=== PATIENT | male | born 1945 | race Caucasian/White ===

== ENCOUNTER → 2020-12-20 | Outpatient (CLI) | payer MEDICARE ==
--- NOTE | 2020-12-20 16:08 | MR ---
EXAMINATION TYPE: MR brain wo con DATE OF EXAM: 12/20/2020 COMPARISON: None HISTORY: CVA, pt states he has no symptoms. CONTRAST: Performed utilizing 0 mL intravenous Gadavist gadolinium contrast. TECHNIQUE: Multiplanar, multiecho imaging on a 3.0 Katerin magnet is performed through the brain. Stud y is performed within 24 hours of arrival to the hospital. The craniovertebral junction is normal. The pituitary is normal. Diffusion-weighted imaging is performed. No abnormal hyperintensity is present to suggest an acute i ntracranial infarct or acute ischemic change. Periventricular white matter hyperintensity is present. Largest focal area measures 0.9 cm within the left centrum semiovale. Findings are nonspecific but can be compatible with microvascular ischemic c hange. Other etiologies including multiple sclerosis could be considered. Ventricles and sulci are slightly prominent for the patient age. IMPRESSIONS: 1. Mild atrophy with chronic appearing periventricular white matter ischemic changes.
== END | disposition home or self-care (01) ==
LOC: RADMRIMAIN 14:38
PROVIDERS: ATTEND Psychiatry & Neurology Neurology
DX: G31.9 Degenerative disease of nervous system, unspecified (principal); I67.82 Cerebral ischemia
CPT/HCPCS: 70551

== ENCOUNTER 2022-11-13 16:23 | Observation (INO) | payer MEDICARE ==
[2022-11-13 16:50] LABS: Glucose,Whole Blood 97 mg/dL (70-110)
[2022-11-13] MEDS ORDERED: SODIUM CHLORIDE 0.9% 1,000 ML IV STA (16:50)
--- NOTE | 2022-11-13 16:50 | ED ---
Altered Mental Status HPI - General Chief Complaint: Altered Mental Status Stated Complaint: unsteady gate Time Seen by Provider: 11/13/22 16:41 Source: patient, family Mode of arrival: ambulatory - History of Present Illness Initial Comments: Geraldo is a pleasant 77-year-old gentleman brought to the emergency department today for evaluation after episode of altered mental status. Patient apparently went on his usual daily walk but while out walking became confused and unsteady on his feet and had to be escorted home by a neighbor. Patient seems somewhat confused and unsteady on his feet. at bedside reports this is the third time this has happened in a month the first being October 28 the second being October 31 and then again today. All of the episodes and seemed to resolve after some rest. Patient has followed with his primary care Dr. Ruiz blood work did reveal worsening kidney function there is concerned these episodes might be related to dehydration as the patient does not drink much during the day and only eats one large meal at suppertime. Patient has not been ill recently he's been in his usual state of health no fevers, chills. Been eating his usual diet. the patient also has a very long history of atrial fibrillation and is not anticoagulated, is uncertain why he is not on any anticoagulation but reports that he never has been. - Related Data Home Medications Medication Instructions Recorded Confirmed Atorvastatin [Lipitor] 10 mg PO HS 11/13/22 11/13/22 Cholecalciferol [Vitamin D3 (25 25 mcg PO Q48H 11/13/22 11/13/22 Mcg = 1000 Iu)] Prostate Plus Health Complex 1 tab PO DAILY 11/13/22 11/13/22 Supplement carvediloL [Coreg] 3.125 mg PO BID 11/13/22 11/13/22 Allergies Allergy/AdvReac Type Severity Reaction Status Date / Time No Known Allergies Allergy Verified 11/13/22 19:37 Review of Systems ROS Statement: Those systems with pertinent positive or pertinent negative responses have been documented in the HPI. ROS Other: All systems not noted in ROS Statement are negative. Past Medical History Past Medical History: No Reported History History of Any Multi-Drug Resistant Organisms: None Reported Past Surgical History: No Surgical Hx Reported Past Psychological History: No Psychological Hx Reported Smoking Status: Never smoker Past Alcohol Use History: None Reported Past Drug Use History: None Reported General Exam - General Exam Comments Initial Comments: Physical Exam GENERAL: Patient is well-developed and well-nourished. Patient is nontoxic and is in no distress. HENT: Normocephalic, Atraumatic. EYES: PERRL, EOMI PULMONARY: Unlabored respirations. CARDIOVASCULAR: Irregular ABDOMEN: Non-distended SKIN: No rashes or bruising : Deferred NEUROLOGIC: Alert and oriented to person and place MUSCULOSKELETAL: Moving all extremities with no apparent injury PSYCHIATRIC: No SI/HI Course Vital Signs 11/13/22 11/13/22 11/13/22 16:28 16:45 17:00 Temperature 98.1 F Pulse Rate 106 H 98 92 Respiratory 18 16 18 Rate Blood Pressure 108/69 113/88 115/93 O2 Sat by Pulse 98 98 98 Oximetry 11/13/22 11/13/22 11/13/22 17:15 17:30 17:45 Temperature 97.7 F 97.6 F Pulse Rate 89 83 93 Respiratory 16 16 17 Rate Blood Pressure 113/86 121/90 114/91 O2 Sat by Pulse 98 98 98 Oximetry 11/13/22 11/13/22 11/13/22 18:30 18:55 19:30 Temperature 97.8 F Pulse Rate 86 84 82 Respiratory 18 17 16 Rate Blood Pressure 145/113 144/106 113/79 O2 Sat by Pulse 99 100 96 Oximetry 11/13/22 11/13/22 11/13/22 20:17 20:30 20:58 Temperature 97.5 F L Pulse Rate 96 91 82 Respiratory 16 16 16 Rate Blood Pressure 151/98 113/83 113/79 O2 Sat by Pulse 98 97 96 Oximetry 11/13/22 21:30 Temperature Pulse Rate 89 Respiratory 16 Rate Blood Pressure 116/75 O2 Sat by Pulse 98 Oximetry Medical Decision Making - Medical Decision Making The patient was seen and evaluated, history is obtained from the patient and at bedside. Patient had an episode of being confused and having trouble walking while he was on a walk in the heat today uncertain if this is related to dehydration/heat exposure versus TIA or stroke. A stroke workup was initiated. Labs resulted with hyperkalemia which was treated. Patient did receive IV fluids for acute kidney injury. CT of the brain showed enlarged ventricles which could be indicative of normal pressure hydrocephalus but no other acute findings. Results were discussed with patient and at bedside we recommend admission for further monitoring and evaluation by neurology which the patient was reluctantly agreeable to and encouraged. Vision care was discussed with [facility] hospitalist physician Dr. Mar Villasenor who accepts the admission for altered mental status, dehydration, hyperkalemia Was pt. sent in by a medical professional or institution (, PA, FABRICATION DEPARTMENT SUPERVISOR, urgent care, hospital, or prison...) When possible be specific @ -No Did you speak to anyone other than the patient for history (EMS, parent, family, police, friend...)? What history was obtained from this source @ -No Did you review nursing and triage notes (agree or disagree)? Why? @ -I reviewed and agree with nursing and triage notes Were old charts reviewed (outside hosp., previous admission, EMS record, old EKG, old radiological studies, urgent care reports/EKG's, prison records)? Report findings @ -No old charts were reviewed Differential Diagnosis (chest pain, altered mental status, abdominal pain women, abdominal pain men, vaginal bleeding, weakness, fever, dyspnea, syncope, headache, dizziness, GI bleed, back pain, seizure, CVA, palpatations, mental health, musculoskeletal)? Differential Altered Mental Status: Hypoglycemia, DKA, hypercapnia, ETOH, overdose, CO poisoning, trauma, myxedema coma, HTN encephalopathy, infection, encephalitis, psychosis, intercranial hemorrhage, hepatic encephalopathy, meningitis, CVA, this is not meant to be an all-inclusive list EKG interpreted by me (3pts min.). @ -As above X-rays interpreted by me (1pt min.). @ -None done CT interpreted by me (1pt min.). @ No mass, enlarged ventricles U/S interpreted by me (1pt. min.). @ -None done What testing was considered but not performed or refused? (CT, X-rays, U/S, labs)? Why? @ MRI can be completed upon admission What meds were considered but not given or refused? Why? @ -None Did you discuss the management of the patient with other professionals (professionals i.e. , PA, FABRICATION DEPARTMENT SUPERVISOR, lab, RT, psych nurse, social director, lens blank gauger, teacher, chief science officer, correctional case manager)? Give summary @ Discussed with the admitting physician Was smoking cessation discussed for >3mins.? @ -No Was critical care preformed (if so, how long)? @ -No Were there social determinants of health that impacted care today? How? (Homelessness, low income, unemployed, alcoholism, drug addiction, transportation, low edu. Level, literacy, decrease access to med. care, mcc, rehab)? @ -No Was there de-escalation of care discussed even if they declined (Discuss DNR or withdrawal of care, Hospice)? DNR status @ -No What co-morbidities impacted this encounter? (DM, HTN, Smoking, COPD, CAD, Cancer, CVA, ARF, Chemo, Hep., AIDS, mental health diagnosis, sleep apnea, morbid obesity)? @ -None Was patient admitted / discharged? Hospital course, mention meds given and route, prescriptions, significant lab abnormalities, going to OR and other pertinent info. @ Admit Undiagnosed new problem with uncertain prognosis? @ Yes Drug Therapy requiring intensive monitoring for toxicity (Heparin, Nitro, Insulin, Cardizem)? @ -No Were any procedures done? @ -No Diagnosis/symptom? @ Altered mental status, acute kidney injury, hyperkalemia Acute, or Chronic, or Acute on Chronic? @ Acute Uncomplicated (without systemic symptoms) or Complicated (systemic symptoms)? @ -Complicated Side effects of treatment? @ -No Exacerbation, Progression, or Severe Exacerbation? @ -No Poses a threat to life or bodily function? How? (Chest pain, [place], [place], pneumonia, PE, COPD, DKA, ARF, appy, cholecystitis, CVA, Diverticulitis, Homicidal, Suicidal, threat to staff... and all critical care pts) @ Yes - Lab Data Result diagrams: 11/13/22 16:54 11/13/22 21:37 Lab Results 11/13/22 11/13/22 11/13/22 Range/Units 16:49 16:54 16:54 WBC 8.3 (3.8-10.6) k/uL RBC 4.43 (4.30-5.90) m/uL Hgb 15.0 (13.0-17.5) gm/dL Hct 43.7 (39.0-53.0) % MCV 98.6 (80.0-100.0) fL MCH 33.8 (25.0-35.0) pg MCHC 34.2 (31.0-37.0) g/dL RDW 12.2 (11.5-15.5) % Plt Count 141 L (150-450) k/uL MPV 8.9 Neutrophils % 77 % Lymphocytes % 12 % Monocytes % 7 % Eosinophils % 2 % Basophils % 1 % Neutrophils # 6.4 (1.3-7.7) k/uL Lymphocytes # 1.0 (1.0-4.8) k/uL Monocytes # 0.6 (0-1.0) k/uL Eosinophils # 0.2 (0-0.7) k/uL Basophils # 0.1 (0-0.2) k/uL PT 10.2 (9.0-12.0) sec INR 1.0 (<1.2) APTT 20.4 L (22.0-30.0) sec Sodium (137-145) mmol/L Potassium (3.5-5.1) mmol/L Chloride (98-107) mmol/L Carbon Dioxide (22-30) mmol/L Anion Gap mmol/L BUN (9-20) mg/dL Creatinine (0.66-1.25) mg/dL Est GFR (CKD-EPI)AfAm (>60 ml/min/1.73 sqM) Est GFR (CKD-EPI)NonAf (>60 ml/min/1.73 sqM) Glucose (74-99) mg/dL POC Glucose (mg/dL) 97 (70-110) mg/dL POC Glu Fur Cleaner ID Chris Rojo Calcium (8.4-10.2) mg/dL Total Bilirubin (0.2-1.3) mg/dL AST (17-59) U/L ALT (4-49) U/L Alkaline Phosphatase (38-126) U/L Troponin I (0.000-0.034) ng/mL Total Protein (6.3-8.2) g/dL Albumin (3.5-5.0) g/dL Urine Opiates Screen (NotDetected) Ur Oxycodone Screen (NotDetected) Urine Methadone Screen (NotDetected) Ur Propoxyphene Screen (NotDetected) Ur Barbiturates Screen (NotDetected) U Tricyclic Antidepress (NotDetected) Ur Phencyclidine Scrn (NotDetected) Ur Amphetamines Screen (NotDetected) U Methamphetamines Scrn (NotDetected) U Benzodiazepines Scrn (NotDetected) Urine Cocaine Screen (NotDetected) U Marijuana (THC) Screen (NotDetected) Serum Alcohol mg/dL 11/13/22 11/13/22 11/13/22 Range/Units 16:54 16:54 16:54 WBC (3.8-10.6) k/uL RBC (4.30-5.90) m/uL Hgb (13.0-17.5) gm/dL Hct (39.0-53.0) % MCV (80.0-100.0) fL MCH (25.0-35.0) pg MCHC (31.0-37.0) g/dL RDW (11.5-15.5) % Plt Count (150-450) k/uL MPV Neutrophils % % Lymphocytes % % Monocytes % % Eosinophils % % Basophils % % Neutrophils # (1.3-7.7) k/uL Lymphocytes # (1.0-4.8) k/uL Monocytes # (0-1.0) k/uL Eosinophils # (0-0.7) k/uL Basophils # (0-0.2) k/uL PT (9.0-12.0) sec INR (<1.2) APTT (22.0-30.0) sec Sodium 134 L (137-145) mmol/L Potassium 5.7 H (3.5-5.1) mmol/L Chloride 102 (98-107) mmol/L Carbon Dioxide 24 (22-30) mmol/L Anion Gap 8 mmol/L BUN 30 H (9-20) mg/dL Creatinine 1.61 H (0.66-1.25) mg/dL Est GFR (CKD-EPI)AfAm 47 (>60 ml/min/1.73 sqM) Est GFR (CKD-EPI)NonAf 41 (>60 ml/min/1.73 sqM) Glucose 93 (74-99) mg/dL POC Glucose (mg/dL) (70-110) mg/dL POC Glu Fur Cleaner ID Calcium 9.5 (8.4-10.2) mg/dL Total Bilirubin 1.7 H (0.2-1.3) mg/dL AST 41 (17-59) U/L ALT 21 (4-49) U/L Alkaline Phosphatase 48 (38-126) U/L Troponin I <0.012 (0.000-0.034) ng/mL Total Protein 7.7 (6.3-8.2) g/dL Albumin 4.4 (3.5-5.0) g/dL Urine Opiates Screen Not Detected (NotDetected) Ur Oxycodone Screen Not Detected (NotDetected) Urine Methadone Screen Not Detected (NotDetected) Ur Propoxyphene Screen Not Detected (NotDetected) Ur Barbiturates Screen Not Detected (NotDetected) U Tricyclic Antidepress Not Detected (NotDetected) Ur Phencyclidine Scrn Not Detected (NotDetected) Ur Amphetamines Screen Not Detected (NotDetected) U Methamphetamines Scrn Not Detected (NotDetected) U Benzodiazepines Scrn Not Detected (NotDetected) Urine Cocaine Screen Not Detected (NotDetected) U Marijuana (THC) Screen Not Detected (NotDetected) Serum Alcohol <10 mg/dL Disposition Clinical Impression: Altered mental status, JUAN (acute kidney injury), Hyperkalemia Disposition: ADMITTED IP TO THIS [facility] Condition: Serious Is patient prescribed a controlled substance at d/c from ED?: No
[2022-11-13 17:08] LABS: Basophils # (A) 0.1 k/uL (0-0.2); Basophils % (A) 1 %; Eosinophils # (A) 0.2 k/uL (0-0.7); Eosinophils % (A) 2 %; HCT 43.7 % (39.0-53.0); Lymphocytes % (A) 12 %; MCH 33.8 pg (25.0-35.0); MCHC 34.2 g/dL (31.0-37.0); MCV 98.6 fL (80.0-100.0); Mean Platelet Volume 8.9; Monocytes # (A) 0.6 k/uL (0-1.0); Monocytes % (A) 7 %; Neutrophils # (A) 6.4 k/uL (1.3-7.7); Neutrophils % (A) 77 %; Platelet Count 141 k/uL (150-450); RBC 4.43 m/uL (4.30-5.90); RDW 12.2 % (11.5-15.5); WBC 8.3 k/uL (3.8-10.6)
[2022-11-13 17:20] LABS: Amphetamine Screen,Urine Not Detected (NotDetected); Barbiturate Screen,Urine Not Detected (NotDetected); Benzodiazepines Screen,Urine Not Detected (NotDetected); Cocaine Screen,Urine Not Detected (NotDetected); Methadone Screen, Urine Not Detected (NotDetected); Opiate Screen,Urine Not Detected (NotDetected); Oxycodone Screen, Urine Not Detected (NotDetected); Phencyclidine Screen,Urine Not Detected (NotDetected); Tricyclic Antidepressant,Urine Not Detected (NotDetected); Urn Cannabinoid Scrn Not Detected (NotDetected)
[2022-11-13 17:23] LABS: Partial Thromboplastin Time 20.4 sec (22.0-30.0); Prothrombin Time 10.2 sec (9.0-12.0)
[2022-11-13 17:24] LABS: ALT 21 U/L (4-49); AST 41 U/L (17-59); African American GFR (CKD) 47 (>60 ml/min/1.73 sqM); Albumin 4.4 g/dL (3.5-5.0); Alcohol <10 mg/dL; Alkaline Phosphatase 48 U/L (38-126); Anion Gap 8 mmol/L; Blood Urea Nitrogen 30 mg/dL (9-20); Calcium 9.5 mg/dL (8.4-10.2); Carbon Dioxide 24 mmol/L (22-30); Chloride 102 mmol/L (98-107); Glucose 93 mg/dL (74-99); Non-African American GFR(CKD) 41 (>60 ml/min/1.73 sqM); Sodium 134 mmol/L (137-145); Total Bilirubin 1.7 mg/dL (0.2-1.3); Total Protein 7.7 g/dL (6.3-8.2)
[2022-11-13 17:31] LABS: Potassium 5.7 mmol/L (3.5-5.1)
--- NOTE | 2022-11-13 17:45 | CT ---
EXAMINATION TYPE: CT brain wo con DATE OF EXAM: 11/13/2022 COMPARISON: None HISTORY: 77-year-old male AMS and unsteady gait TECHNIQUE: Examination was done in axial plane without intravenous contrast. Coronal and sagittal r econstructions performed. CT DLP: 1155.4 mGycm Automated exposure control for dose reduction was used. FINDINGS: There is no evidence of acute intracranial hemorrhage, acute ischemic changes, mass, mass-effect, or extra-axial fluid collection. There is no effacement of cerebral sulci or basal subarachnoid cister ns. There is no midline shift. Prater-white matter distinction is preserved. Moderate generalized supratentorial volume loss. Mild ventriculomegaly likely due to central volume l oss. Carl's ratio calculated at 0.36. Moderate white matter hypodensities and postsurgical hemisphere s. Trace mucosal thickening ethmoid air cells. Mastoid air cells are well pneumatized. Orbits and globes are intact. IMPRESSION: 1. Mild hydrocephalus likely due to ex vacuo enlargement from central cerebral atrophy. Correlate to exclude a component of NPH. 2. Moderate burden of chronic small vessel ischemic disease. 3. Otherwise, no acute intracranial abnormality seen.
[2022-11-13] MEDS ORDERED: SODIUM CHLORIDE 0.9% 1,000 ML IV ONE (17:57)
--- NOTE | 2022-11-13 17:58 | XR ---
EXAMINATION TYPE: XR chest 2V DATE OF EXAM: 11/13/2022 COMPARISON: None HISTORY: 77-year-old male confusion, altered mental status TECHNIQUE: AP and lateral views FINDINGS: Heart upper limits of normal in size. Mild hyperinflation. Suspect a calcified granuloma at the perip beckie of the left base. A nodule at the periphery of the right base measuring 1.1 cm probably represen ts nipple shadow and should be reassessed at follow-up. Otherwise, no consolidation or pleural effusi on. IMPRESSION: 1. No acute cardiopulmonary process. 2. A 1.1 cm nodule at the right base suspected to represent nipple shadow. Follow-up radiograph in 3- 4 weeks utilizing nipple marker. A nodule at the left base likely represents a benign calcified granu lizeth.
[2022-11-13] MEDS ORDERED: INSULIN REGULAR 100 UNIT/ML VIAL (IV) IV ONE (18:01)
[2022-11-13] MEDS ORDERED: DEXTROSE 50% SYRINGE 50 ML IVP ONE (18:01)
[2022-11-13] MEDS ORDERED: CALCIUM GLUCONATE IN NACL 1 GM in SALINE 1 100ML.BAG IVPB ONE (18:30)
[2022-11-13] MEDS ORDERED: carvediloL 3.125 MG TAB PO STA (19:48)
[2022-11-13] MEDS ORDERED: ASPIRIN 325 MG TAB PO STA (20:07)
[2022-11-14] MEDS: ASPIRIN 325 MG TAB PO SCH (09:28)
[2022-11-14 11:19] LABS: Chol/HDL Ratio 2.68 Ratio; LDL Cholesterol,Calculated 97.9 mg/dL (0.0-131.0)
--- NOTE | 2022-11-14 12:24 | P.CNNES ---
History of Present Illness Consult date: 11/14/22 Requesting physician: Meseret Murillo Reason for Consult: tia vs normal pressure hydrocephalus History of Present Illness: This is a 77-year-old gentleman who presented emergency department because of altered mental status and unsteady gait. History is obtained from medical records. According to patient he stated that he was walk-in is seems that his walk was off so therefore his neighbor was alarmed. He denies of any headache, nausea, focal weakness, numbness. Denies falling and hitting his head. Denies any loss of consciousness. Denies any history of stroke that he recalls. He feels back to baseline currently. Per ED team, the patient was doing his usual walk and then became confused with unsteady gait and had to be escorted by his neighbor. Patient had two similar episode about in October (October 28 and ). Patient followed up with his primary care physician Dr. Ruiz and his blood work revealed he had kidney insufficiency and was felt that due to dehydration. Patient has history of atrial fib rillation and is not on any anticoagulation. Some other workup during his hospital visit consisted of: CBC with differential is platelet count is 141,000 otherwise rest is unremarkable Sodium is 134, potassium 5.7, creatinine is 1.61 with a BUN 30. Otherwise calcium is normal AST ALT is normal CK level LXXIV. Initial serum glucose is 93 and the P Oser glucose on presentation was 97. Urine toxicology screen is not detected and serum alcohol was less than 10. 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 Correlate to exclude component of normal pressure hydrocephalus. Moderate burden of chronic small vessel disease. Otherwise no acute intracranial abnormality seen. I personally reviewed the CT of the head and I agree there is no acute subacute ischemia. There is no lumber cutter, bleed. Regarding the dilated the ventricles I felt was a the lateral ventricle and third ventricle was dilated but the fourth risk was not dilated and I feel the dilation was seems likely due to the cerebral atrophy and I feel less suspicious of normal pressure hydrocephalus EKG is reported as age are fibrillation with RVR. Review of Systems Review of system: The 12 point system was reviewed and apparent positive and negative per HPI. Past Medical History Past Medical History: No Reported History History of Any Multi-Drug Resistant Organisms: None Reported Past Surgical History: No Surgical Hx Reported Past Psychological History: No Psychological Hx Reported Smoking Status: Never smoker Past Alcohol Use History: None Reported Past Drug Use History: None Reported Medications and Allergies Home Medications Medication Instructions Recorded Confirmed Type Atorvastatin [Lipitor] 10 mg PO HS 11/13/22 11/13/22 History Cholecalciferol [Vitamin D3 (25 25 mcg PO Q48H 11/13/22 11/13/22 History Mcg = 1000 Iu)] Prostate Plus Health Complex 1 tab PO DAILY 11/13/22 11/13/22 History Supplement carvediloL [Coreg] 3.125 mg PO BID 11/13/22 11/13/22 History Allergies Allergy/AdvReac Type Severity Reaction Status Date / Time No Known Allergies Allergy Verified 11/13/22 19:37 Physical Examination - Vital Signs Vital Signs: Vital Signs Temp Pulse Resp BP Pulse Ox 11/14/22 03:23 72 11/14/22 01:30 98.1 F 92 16 110/62 98 11/13/22 23:30 97.9 F 101 H 16 122/78 99 11/13/22 21:30 89 16 116/75 98 11/13/22 20:58 82 16 113/79 96 11/13/22 20:30 97.5 F L 91 16 113/83 97 11/13/22 20:17 96 16 151/98 98 11/13/22 19:30 97.8 F 82 16 113/79 96 11/13/22 18:55 84 17 144/106 100 11/13/22 18:30 86 18 145/113 99 11/13/22 17:45 97.6 F 93 17 114/91 98 11/13/22 17:30 97.7 F 83 16 121/90 98 11/13/22 17:15 89 16 113/86 98 11/13/22 17:00 92 18 115/93 98 11/13/22 16:45 98 16 113/88 98 11/13/22 16:28 98.1 F 106 H 18 108/69 98 Intake and Output 11/13/22 11/14/22 11/14/22 22:59 06:59 14:59 Other: Weight 68.039 kg GENERAL: The patient is lying in bed and is not in acute distress. NEUROLOGICAL: Higher mental function: The patient is awake, alert, oriented to self, place and time. Patient is following commands. No aphasia and no neglect. Cranial nerves: The pupils are round, equal and reactive to light and accommodation. Visual malin are full to confrontation throughout. Extraocular movement is intact no nystagmus is noted. Facial sensation is normal to touch throughout. The facial strength is normal throughout. Hearing is moderately de creased bilaterally to hand rub. Tongue is midline and moved [id number] without any difficulty. No dysarthria is noted. Shoulder shrug is normal bilaterally. Motor: Gait is normal. The strength is 5 over 5 throughout. Normal tone and bulk. Cerebellum: Normal finger to nose heel to harvey bilaterally. Sensation: Sensation is normal to touch throughout. Reflexes (right/left): 2+ throughout. Plantars are downgoing bilaterally. Results - Laboratory Findings CBC and BMP: 11/13/22 16:54 11/13/22 21:37 Abnormal Lab Findings: Abnormal Labs 11/13/22 11/13/22 11/13/22 16:54 16:54 16:54 Plt Count 141 L APTT 20.4 L Sodium 134 L Potassium 5.7 H BUN 30 H Creatinine 1.61 H Total Bilirubin 1.7 H Assessment and Plan Assessment: This is a 77-year-old gentleman who presented because of confusion and unsteady gait. He had 2 similar episode in October 2022. Patient has fibrillation and is not on any anticoagulation. Episode of confusion with unsteady gait seems due to underlying transient ischemic attack especially with the history of atrial fibrillation Atrial fibrillation not on any anticoagulation Acute kidney injury Plan: I ordered stroke work-up: MRI of the brain, carotid duplex, 2-D echo, lipid panel. Ordered routine EEG because of these episode of confusion to rule out any underlying seizure discharges I also ordered TSH, vitamin B12, folate, ammonia, hemoglobin A1c because of his confusion episode Patient is on aspirin 325 daily. I also started the patient on Lipitor 40 mg daily at bedtime percentage prophylaxis Recommend evaluation of use of anticoagulation especially with atrial fibrillation and we'll defer the addition to the primary and possibly consider cardiology consultation Continue neuro checks Cardiac monitoring PT OT HYDRAULIC CORRUGATING MACHINE OPERATOR is consulted Recommend Neuropsych evaluation as outpatient for detailed memory testing and to follow-up with neurologist as outpatient within 1-2 weeks. We'll defer the rest of the medical management to primary team For DVT prophylaxis I started the patient on subcu heparin 5000 units every 12 hours The plan is discussed with his nurse. Thank you for the consultation Time with Patient: Greater than 30
--- NOTE | 2022-11-14 13:07 | MR ---
EXAMINATION TYPE: MR brain wo con DATE OF EXAM: 11/14/2022 12:56 PM COMPARISON: CT brain 323, MRI brain 12/20/2020. CLINICAL INDICATION:Male, 77 years old with history of unsteady gait and confusion; [facility], TECHNIQUE: Multi planar, multi sequence imaging was performed through the brain. No gadolinium was gi brittani. FINDINGS: The bass-white junctions and cisterns appear unremarkable. Similar mild ventriculomegaly from prior MRI. Stable cerebral volume loss. Patchy areas of high T2/FLAIR signal intensity are again seen withi n the periventricular white matter. Similar prior examination. Midline structures show no abnormality . Diffusion-weighted imaging shows no evidence of restricted diffusion. The susceptibility weighted i mages do not reveal any evidence for micro-hemorrhage. The bone marrow signal is within normal limits. The paranasal sinuses are unremarkable. Bilateral aph genie. Trace right mastoid effusion. IMPRESSION: 1. No evidence of intracranial mass or acute/subacute infarct. 2. Similar cerebral volume loss with no significant change in mild ventriculomegaly from prior MRI in 2020. Likely related to cerebral volume loss versus less likely normal pressure hydrocephalus. 3. Similar nonspecific white matter changes, likely secondary to small vessel ischemic disease. 4. Trace right mastoid effusion.
--- NOTE | 2022-11-14 14:27 | US ---
EXAMINATION TYPE: US carotid duplex BILAT DATE OF EXAM: 11/14/2022 COMPARISON: NONE CLINICAL INDICATION: Male, 77 years old with history of stroke; unsteady gait, confused, TIA TECHNIQUE: Carotid duplex ultrasound examination. Indirect Doppler criteria was utilized. FINDINGS: EXAM MEASUREMENTS: RIGHT: Peak Systolic Velocity (PSV) cm/sec ----- Right CCA: 59.8 ----- Right ICA: 66.0 ----- Right ECA: 70.3 ICA/CCA ratio: 1.1 RIGHT: End Diastole cm/sec ----- Right CCA: 18.8 ----- Right ICA: 24.1 ----- Right ECA: 10.1 LEFT: Peak Systolic Velocity (PSV) cm/sec ----- Left CCA: 59.8 ----- Left ICA: 88.6 ----- Left ECA: 56.7 ICA/CCA ratio: 1.5 LEFT: End Diastole cm/sec ----- Left CCA: 13.6 ----- Left ICA: 30.3 ----- Left ECA: 5.4 VERTEBRALS (direction of flow): Right Vertebral: Antegrade Left Vertebral: Antegrade Rhythm: Arrhythmia NEWS TECHNICAL DIRECTOR NOTES: Mild homogeneous plaque with no significant stenosis IMPRESSION: Mild atherosclerotic plaque in the bilateral carotid bulbs without hemodynamically significant stenos is of both carotid arterial systems. Criteria for Assigning % of Stenosis / Diameter reduction (Estimation based on the indirect measurements of the internal carotid artery velocities (ICA PSV). 1. Normal (no stenosis)=ICA PSV < 125 cm/s: ratio < 2.0: ICA EDV<40 cm/s. 2. Less than 50% stenosis=ICA PSV < 125 cm/s: ratio < 2.0: ICA EDV<40 cm/s. 3. 50 to 69% stenosis=ICA PSV of 125 to 230 cm/s: ration 2.0 ? 4.0: ICA EDV 40-100 cm/s. 4. Greater than 70% stenosis to near occlusion= ICA PSV > 230 cm/s: ratio > 4.0: ICA EDV > 100 cm/s. 5. Near occlusion= ICA PSV velocities may be low or undetectable: variable ratio and ICA EDV. 6. Total occlusion=unable to detect flow.
--- NOTE | 2022-11-14 17:26 | EEG ---
ELECTROENCEPHALOGRAM REPORT CLINICAL HISTORY: This is a 77-year-old gentleman with altered mental status. The video EEG is obtained to evaluate for seizure and epileptiform activity. RELEVANT MEDICATIONS: The patient is not on any antiepileptic drugs. EEG TYPE: A routine 21-channel using the 10/20 electrode placement system is performed. DESCRIPTION: Wakefulness is only obtained. During the awake state, the posterior-dominant rhythm consists of sah-ki-[id number] voltage of 9 to 9.5 Hz, that is well modulated and well sustained. There is no physiological stage II sleep architecture. There is no focal slowing. There is [id number] diffuse myogenic artifact. INTERICTAL AND ICTAL: None. ACTIVATION PROCEDURE: Photic stimulation did not evoke a posterior driving response. There is no abnormality during the photic stimulation. Hyperventilation is not performed. CLINICAL INTERPRETATION: This is a normal routine EEG. There is no focal slowing, epileptiform discharge, or seizure on the EEG. A normal routine EEG does not rule out underlying epilepsy. Clinical correlation is recommended. MMRUTH / IJN: [id number] /
--- NOTE | 2022-11-14 17:51 | CA ---
Transthoracic Echo Report Name: Geraldo Uriarte Age: 77 Gender: M : 1945 Exam Date: 11/14/2022 14:01 Exam Location: [facility] Ht (in): 68 Wt (lb): 150 Ordering Physician: Galileo Torrez MD Attending/Referring Phys: [employer] Operator Chief Vandana Matute RDCS Procedure CPT: Indications: stroke Cardiac Hx: Technical Quality: Good Contrast 1: Total Dose (mL): Contrast 2: Total Dose (mL): MEASUREMENTS (Male / Female) Normal Values 2D ECHO LV Diastolic Diameter PLAX 4.3 cm 4.2 - 5.9 / 3.9 - 5.3 cm LV Systolic Diameter PLAX 3.1 cm IVS Diastolic Thickness 1.1 cm 0.6 - 1.0 / 0.6 - 0.9 cm LVPW Diastolic Thickness 1.0 cm 0.6 - 1.0 / 0.6 - 0.9 cm LV Relative Wall Thickness 0.5 RV Internal Dim ED PLAX 2.7 cm LA Systolic Diameter LX 3.6 cm 3.0 - 4.0 / 2.7 - 3.8 cm LV Diastolic Volume MOD 4C 44.8 cm??? LV Systolic Volume MOD 4C 23.9 cm??? LV Ejection Fraction MOD 4C 46.6 % LV Cardiac Index MOD 4C 1039.0 cm???/min???m??? LV Diastolic Length 4C 7.1 cm LV Systolic Length 4C 6.4 cm LV Diastolic Volume MOD 2C 25.4 cm??? LV Systolic Volume MOD 2C 13.9 cm??? LV Ejection Fraction MOD 2C 45.2 % LV Cardiac Index MOD 2C 571.5 cm???/min???m??? LV Diastolic Length 2C 6.7 cm LV Systolic Length 2C 6.3 cm LA Volume 37.5 cm??? 18 - 58 / 22 - 52 cm??? M-MODE Aortic Root Diameter MM 3.5 cm MV E Point Septal Separation 0.4 cm AV Cusp Separation MM 1.9 cm DOPPLER AV Peak Velocity 74.6 cm/s AV Peak Gradient 2.2 mmHg MV Area PHT 4.5 cm??? MV Deceleration Time 163.4 ms TR Peak Velocity 211.4 cm/s TR Peak Gradient 17.9 mmHg Right Ventricular Systolic Press 22.5 mmHg FINDINGS Left Ventricle Left ventricular ejection fraction is estimated at 45-50 %. Left ventricular cavity size normal. Mild global hypokinesis. Right Ventricle Normal right ventricular size. Right ventricular systolic pressure within normal limits. Right Atrium Normal right atrial size. Left Atrium Normal left atrial size. Mitral Valve Structurally normal mitral valve. Mild mitral regurgitation. Aortic Valve Trileaflet aortic valve. Aortic valve sclerosis. No aortic stenosis. No aortic regurgitation. Tricuspid Valve Structurally normal tricuspid valve. Mild to moderate tricuspid regurgitation. Pulmonic Valve Structurally normal pulmonic valve. Trace pulmonic regurgitation. Pericardium Normal pericardium. No pericardial effusion. Aorta Normal size aortic root and proximal ascending aorta. CONCLUSIONS 1. Normal left ventricular size with mild global hypokinesis 2. Moderate mitral with [id number] tricuspid regurgitation and no evidence of pulmonary hypertension Previewed by: Dr. Camilla Guillermo MD (Electronically Signed) Final Date: 14 November 2022 17:50
[2022-11-14] MEDS: HEPARIN SODIUM,PORCINE 5,000 UNIT/ML 1 ML VIAL SQ SCH (20:14)
[2022-11-14] MEDS: carvediloL 3.125 MG TAB PO SCH (20:37)
[2022-11-14] MEDS ORDERED: CHOLECALCIFEROL 25 MCG (1000 IU) TABLET PO SCH (21:00)
[2022-11-14] MEDS ORDERED: ATORVASTATIN 40 MG TAB PO SCH (21:00)
[2022-11-15] MEDS: carvediloL 3.125 MG TAB PO SCH (06:50)
[2022-11-15] MEDS: METOPROLOL TARTRATE 25 MG TAB PO SCH ×2 (09:46→19:47)
[2022-11-15] MEDS: APIXABAN 5 MG TAB PO SCH ×2 (09:46→19:47)
[2022-11-15] MEDS: HEPARIN SODIUM,PORCINE 5,000 UNIT/ML 1 ML VIAL SQ SCH (09:46)
[2022-11-15] MEDS: ASPIRIN 325 MG TAB PO SCH (10:44)
--- NOTE | 2022-11-15 10:54 | P.CRDCN ---
History of Present Illness History of present illness: HISTORY OF PRESENT ILLNESS: This is a 77-year-old male with a past medical history significant for hypertension and hyperlipidemia. Patient does not follow with a parimutuel cashier. We have been asked to see the patient in consultation for atrial fibrillation. Patient examined at the bedside. Patient is confused this morning and is a poor historian. There is no family at the bedside. Apparently the patient was walking when he became unsteady. The patient states he felt like he was "stumbling". The patient currently denies any chest pain or pressure. He denies any shortness of breath. He denies any dizziness or lightheadedness. He denies any palpitations. EKG on admission reveals atrial fibrillation. There is a documentation that the patient has a history of atrial fibrillation but he is not on anticoagulation for an unknown reason. The patient is unaware of this as well. The patient denies any issues in the past with bleeding or frequent falls. There are no previous EKGs in the EMR to verify the patient has a history of atrial fibrillation. At the time of examination, patient remains in atrial flutter ablation with heart rate around 120. * EKG reveals atrial fibrillation with RVR * Chest xray negative for acute process * MRI of the brain: No evidence of intracranial mass or acute/subacute infarct. * Carotid Doppler: Mild atherosclerotic plaque in the bilateral carotid bulbs without hemodynamically significant stenosis of both carotid arterial systems * EEG: Negative for seizure activity * Laboratory data: WBC 8.3. Hemoglobin 15.0. Platelet count 141. Sodium 134. Potassium 3.9. BUN 30. Creatinine 1.61. Troponin negative 1. TSH 1.340. * Current home cardiac medications include carvedilol 3.125 mg twice a day and Lipitor 10 mg at night * Echocardiogram completed revealing ejection fraction 45-50%, mild global hypokinesia, moderate mitral regurgitation, [id number] tricuspid regurgitation REVIEW OF SYSTEMS: At the time of my exam: CONSTITUTIONAL: Denies fever or chills. HEENT: Denies blurred vision, vision changes, or eye pain. Denies hemoptysis CARDIOVASCULAR: Denies chest pain. Denies orthopnea. Denies PND. Denies palpitations RESPIRATORY: Denies shortness of breath. GASTROINTESTINAL: Denies abdominal pain. Denies nausea or vomiting. HEMATOLOGIC: Denies bleeding disorders. GENITOURINARY: Denies any blood in urine. SKIN: Denies pruitis. Denies rash. PHYSICAL EXAM: VITAL SIGNS: Reviewed. GENERAL: Well-developed in no acute distress. HEENT: Head is normocephalic. Pupils are equal, round. Sclerae anicteric. Mucous membranes of the mouth are moist. Neck supple. No JVD or thyromegaly LUNGS: Respirations even and unlabored. Lungs essentially clear to auscultation bilaterally. HEART: Regular rate and rhythm. S1 and S2 heard. Systolic murmur noted ABDOMEN: Soft. Nondistended. Nontender. EXTREMITIES: Normal range of motion. No clubbing or cyanosis. Peripheral pulses intact. No lower extremity edema NEUROLOGIC: Awake and alert. Oriented x 1. ASSESSMENT: Episode of confusion with unsteady gait, possible TIA Atrial fibrillation with mild RVR, duration unknown, documented questionable history of atrial fibrillation however not on anticoagulation outpatient Acute kidney injury History of hypertension History of hyperlipidemia PLAN: 2-D echo obtained and reviewed TSH checked and within normal limits Continue telemetry monitoring Discontinue carvedilol. Begin metoprolol tartrate 25 mg twice a day Case discussed with Dr. Torrez, neurologist. Okay to begin anticoagulation from his standpoint. We will discontinue aspirin and begin Eliquis 5mg BID Further recommendations pending patient course Nurse practitioner note has been reviewed by physician. Signing provider agrees with the documented findings, assessment, and plan of care. Past Medical History Past Medical History: No Reported History History of Any Multi-Drug Resistant Organisms: None Reported Past Surgical History: No Surgical Hx Reported Past Psychological History: No Psychological Hx Reported Smoking Status: Never smoker Past Alcohol Use History: None Reported Past Drug Use History: None Reported Medications and Allergies Home Medications Medication Instructions Recorded Confirmed Type Atorvastatin [Lipitor] 10 mg PO HS 11/13/22 11/13/22 History Cholecalciferol [Vitamin D3 (25 25 mcg PO Q48H 11/13/22 11/13/22 History Mcg = 1000 Iu)] Prostate Plus Health Complex 1 tab PO DAILY 11/13/22 11/13/22 History Supplement carvediloL [Coreg] 3.125 mg PO BID 11/13/22 11/13/22 History Allergies Allergy/AdvReac Type Severity Reaction Status Date / Time No Known Allergies Allergy Verified 11/13/22 19:37 Physical Exam Vitals: Vital Signs Temp Pulse Pulse Resp BP BP Pulse Ox 11/15/22 07:00 98.2 F 89 16 117/85 97 11/15/22 02:12 98.2 F 69 15 129/68 94 L 11/14/22 19:06 98.3 F 78 16 139/77 99 11/14/22 15:00 98.3 F 58 L 16 136/90 97 11/14/22 12:00 114 H 22 11/14/22 11:00 67 16 11/14/22 10:00 74 19 Intake and Output 11/14/22 11/15/22 11/15/22 22:59 06:59 14:59 Intake Total 118 Balance 118 Intake: Oral 118 Other: # Voids 1 Results 11/13/22 16:54 11/13/22 21:37 Lipids 11/13/22 Range/Units 21:37 Triglycerides 112.00 (0.00-149.00) mg/dL Cholesterol 192.00 (0.00-200.00) mg/dL HDL Cholesterol 71.70 H (40.00-60.00) mg/dL Cholesterol/HDL Ratio 2.68 Ratio Current Medications Generic Name Dose Route Start Last Admin Trade Name Ericq PRN Reason Stop Dose Admin Aspirin 325 mg 11/14/22 09:00 11/14/22 09:28 Aspirin 325 Mg Tab PO 325 mg DAILY DIANE Administration Atorvastatin Calcium 40 mg 11/14/22 21:00 11/14/22 20:14 Atorvastatin 40 Mg Tab PO 40 mg HS DIANE Administration Carvedilol 3.125 mg 11/14/22 21:00 11/15/22 06:50 Carvedilol 3.125 Mg Tab PO 3.125 mg BID-W/MEALS DIANE Administration Cholecalciferol 25 mcg 11/14/22 21:00 11/14/22 20:37 Cholecalciferol 25 Mcg (1000 Iu) Tablet PO 25 mcg Q48H DIANE Administration Heparin Sodium (Porcine) 5,000 unit 11/14/22 21:00 11/14/22 20:14 Heparin Sodium,Porcine 5,000 Unit/Ml 1 Ml Vial SQ Not Given Q12HR DIANE Intake and Output 11/14/22 11/15/22 11/15/22 22:59 06:59 14:59 Intake Total 118 Balance 118 Intake: Oral 118 Other: # Voids 1 11/13/22 16:54 11/13/22 21:37
--- NOTE | 2022-11-15 12:21 | P.PN ---
Subjective Progress Note Date: 11/15/22 I'll follow up seeing the patient and he feels he is doing well. Upon seeing the patient he was having his breakfast and denies of any new focal deficit or any complaints. Objective - Vital Signs Vital signs: Vital Signs Temp 98.2 F 11/15/22 07:00 Pulse 89 11/15/22 07:00 Resp 16 11/15/22 07:00 BP 117/85 11/15/22 07:00 Pulse Ox 97 11/15/22 07:00 FiO2 Intake & Output 11/14/22 11/15/22 11/15/22 18:59 06:59 18:59 Intake Total 118 Balance 118 Weight 68.039 kg Intake: Oral 118 Other: # Voids 1 - Exam GENERAL: The patient is sitting up in bed having his breakfast and is not in acute distress. NEUROLOGICAL: Higher mental function: The patient is awake, alert, oriented to self, place and time. Patient is following simple commands. No aphasia and no neglect. Cranial nerves: The pupils are round, equal and reactive to light and accommodation. Visual malin are full to confrontation throughout. Extraocular movement is intact no nystagmus is noted. Facial sensation is normal to touch throughout. The facial strength is normal throughout. Hearing is moderately decreased bilaterally to hand rub. Tongue is midline and moved [id number]-yflh without any difficulty. No dysarthria is noted. Shoulder shrug is normal shar aterally. Motor: Gait is normal. The strength is 5 over 5 throughout. Normal tone and bulk. Cerebellum: Normal finger to nose heel to harvey bilaterally. Sensation: Sensation is normal to touch throughout. Reflexes (right/left): 2+ throughout. Plantars are downgoing bilaterally. Some other workup during his hospital visit consisted of: Lipid panel is triglyceride is 112, cholesterol is 192, LDL is 97 and HDL 71 Vitamin B12 is 236 which is considered the very low normal (normal level is 200- 944) Folate serum level is 15.5 TSH is 1.340 Ammonia level is less than 9 Hemoglobin A1c is 5.9 Urine toxicology screen is not detected and serum alcohol was less than 10. 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 Correlate to exclude component of normal pressure hydrocephalus. Moderate burden of chronic small vessel disease. Otherwise no acute intracranial abnormality seen. I personally reviewed the CT of the head and I agree there is no acute subacute ischemia. There is no hand launderer, bleed. Regarding the dilated the ventricles I felt was a the lateral ventricle and third ventricle was dilated but the fourth risk was not dilated and I feel the dilation was seems likely due to the cerebral atrophy and I feel less suspicious of normal pressure hydrocephalus EKG is reported as age are fibrillation with RVR. Carotid duplex was reported as mild at this carotid plaque in bilateral carotid bulbs without hemodynamically significant stenosis of both carotid arterial system. 2-D echo was reported as normal left ventricular size with mild global hypokinesis. Moderate mitral with mild to moderate tricuspid regurgitation and no evidence for pulmonary hypertension. Normal left atrial size in the body of the report. MRI the brain is reported as no evidence of intracranial mass or acute/subacute infarct. Similar cerebral volume loss with no significant change in mild ventricular megaly from the prior MRI in 2020. Likely related to cerebral volume loss versus very less likely normal pressure hydrocephalus. Similar nonspecific white matter changes, likely secondary due to small vessel ischemic disease. Trace right mastoid effusion. I personally reviewed the MRI and I agree there is no acute or subacute ischemia. Routine EEG is normal. There is no focal slowing, epileptiform discharges or seizure on the EEG. - Labs CBC & Chem 7: 11/13/22 16:54 11/13/22 21:37 Assessment and Plan Assessment: This is a 77-year-old gentleman who presented because of confusion and unsteady gait. He had 2 similar episode in October 2022. Patient has fibrillation and is not on any anticoagulation. Episode of confusion with unsteady gait seems due to probable transient ischemic attack especially with the history of atrial fibrillation. Cannot rule out any underlying new onset dementia or pre-existing and is mild. MRI Brain is negative for acute or subacute ischemic stroke. Atrial fibrillation not on any anticoagulation Vitamin B12 is 236 which is considered the very low normal (normal level is 200- 944) Acute kidney injury Plan: Patient is on aspirin 325mg daily. Cardiology has started the patient on Eliquis because of atrial fibrillation and ASA was discontinued. I went down on Lipitor that I started from 40mg to 10mg qhs for secondary stroke prophylaxis. Vitamin B12 is 236 which is considered the very low normal (normal level is 200- 944). I started him on one time Vitamin B12 1000IM then after that PO daily. Continue neuro checks Cardiac monitoring PT OT TELEPHONE ORDER CLERK is consulted Recommend Neuropsych evaluation as outpatient for detailed memory testing and to follow-up with neurologist as outpatient within 1-2 weeks. Cardiology team is consulted. We'll defer the rest of the medical management to primary team For DVT prophylaxis On eliquis. There is no additional neurological work-up. Please notify neurology team if any further concerns. Time with Patient: Less than 30
[2022-11-15] MEDS ORDERED: CYANOCOBALAMIN 1,000 MCG/ML 1 ML VIAL IM ONE (13:00)
[2022-11-15] MEDS ORDERED: ATORVASTATIN 10 MG TAB PO SCH (21:00)
--- NOTE | 2022-11-15 21:46 | P.HPIM ---
History of Present Illness H&P Date: 11/14/22 Chief Complaint: Altered mental status/unsteady gait 77-year-old gentleman brought to the emergency department today for evaluation after episode of altered mental status. Patient apparently went on his usual daily walk but while out walking became confused and unsteady on his feet and had to be escorted home by a neighbor. Patient seems somewhat confused and unsteady on his feet. at bedside reports this is the third time this has happened in a month the first being October 28 the second being October 31 and then again today. All of the episodes and seemed to resolve after some rest. Patient has followed with his primary care Dr. Ruiz blood work did reveal worse jimbo kidney function there is concerned these episodes might be related to dehydration as the patient does not drink much during the day and only eats one large meal at suppertime. Patient has not been ill recently he's been in his usual state of health no fevers, chills. Been eating his usual diet. the patient also has a very long history of atrial fibrillation and is not anticoagulated, is uncertain why he is not on any anticoagulation but reports that he never has been. CBC with differential is platelet count is 141,000 otherwise rest is unremarkable; Sodium is 134, potassium 5.7, creatinine is 1.61 with a BUN 30; CK of 74 and troponin of less than 0.012 Urine toxicology screen is not detected and serum alcohol was less than 10. 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 Correlate to exclude component of normal pre ssure hydrocephalus. Moderate burden of chronic small vessel disease. Otherwise no acute intracranial abnormality seen. EKG is reported as age are fibrillation with RVR. Review of Systems REVIEW OF SYSTEMS: CONSTITUTIONAL: No fever, no malaise, no fatigue. HEENT: No recent visual problems or hearing problems. Denied any sore throat. CARDIOVASCULAR: No chest pain, orthopnea, PND, no palpitations, no syncope. PULMONARY: No shortness of breath, no cough, no hemoptysis. GASTROINTESTINAL: No diarrhea, no nausea, no vomiting, no abdominal pain. NEUROLOGICAL: No headaches, no weakness, no numbness. HEMATOLOGICAL: Denies any bleeding or petechiae. GENITOURINARY: Denies any burning micturition, frequency, or urgency. MUSCULOSKELETAL/RHEUMATOLOGICAL: Denies any joint pain, swelling, or any muscle pain. ENDOCRINE: Denies any polyuria or polydipsia. The rest of the 14-point review of systems is negative. Past Medical History Past Medical History: No Reported History History of Any Multi-Drug Resistant Organisms: None Reported Past Surgical History: No Surgical Hx Reported Past Psychological History: No Psychological Hx Reported Smoking Status: Never smoker Past Alcohol Use History: None Reported Past Drug Use History: None Reported Medications and Allergies Home Medications Medication Instructions Recorded Confirmed Type Atorvastatin [Lipitor] 10 mg PO HS 11/13/22 11/13/22 History Cholecalciferol [Vitamin D3 (25 25 mcg PO Q48H 11/13/22 11/13/22 History Mcg = 1000 Iu)] Prostate Plus Health Complex 1 tab PO DAILY 11/13/22 11/13/22 History Supplement carvediloL [Coreg] 3.125 mg PO BID 11/13/22 11/13/22 History Allergies Allergy/AdvReac Type Severity Reaction Status Date / Time No Known Allergies Allergy Verified 11/13/22 19:37 Physical Exam Vitals: Vital Signs Temp Pulse Resp BP Pulse Ox 11/14/22 03:23 72 11/14/22 01:30 98.1 F 92 16 110/62 98 11/13/22 23:30 97.9 F 101 H 16 122/78 99 11/13/22 21:30 89 16 116/75 98 11/13/22 20:58 82 16 113/79 96 11/13/22 20:30 97.5 F L 91 16 113/83 97 11/13/22 20:17 96 16 151/98 98 11/13/22 19:30 97.8 F 82 16 113/79 96 11/13/22 18:55 84 17 144/106 100 11/13/22 18:30 86 18 145/113 99 11/13/22 17:45 97.6 F 93 17 114/91 98 11/13/22 17:30 97.7 F 83 16 121/90 98 11/13/22 17:15 89 16 113/86 98 11/13/22 17:00 92 18 115/93 98 11/13/22 16:45 98 16 113/88 98 11/13/22 16:28 98.1 F 106 H 18 108/69 98 Intake and Output 11/13/22 11/14/22 11/14/22 22:59 06:59 14:59 Other: Weight 68.039 kg - Constitutional General appearance: Present: average body habitus, cooperative, no acute distress - EENT Eyes: Present: anicteric sclerae, EOMI, PERRLA, normal appearance ENT: Present: hearing grossly normal, normal oropharynx Ears: bilateral: normal - Neck Neck: Present: normal ROM. Absent: lymphadenopathy, rigidity, thyromegaly Carotids: negative: bruit present Thyroid: bilateral: normal size, negative: enlarged, nodule - Respiratory Respiratory: bilateral: CTA, negative: rales, rhonchi, wheezing - Cardiovascular Rhythm: regular Heart sounds: normal: S1, S2 Abnormal Heart Sounds: Absent: systolic murmur, diastolic murmur - Gastrointestinal General gastrointestinal: Present: normal bowel sounds, soft. Absent: distended, organomegaly, tenderness - Genitourinary Genitourinary Comment(s): deferred - Integumentary Integumentary: Present: normal turgor. Absent: jaundiced, rash, ulcer - Neurologic Neurologic: Present: CNII-XII intact. Absent: focal deficits - Musculoskeletal Musculoskeletal: Present: gait normal, strength equal bilaterally - Psychiatric Psychiatric: Present: A&O x's 3, appropriate affect, intact judgment & insight Results CBC & Chem 7: 11/13/22 16:54 11/13/22 21:37 Labs: Abnormal Lab Results - Last 24 Hours (Table) 11/13/22 11/13/22 11/13/22 Range/Units 16:54 16:54 16:54 Plt Count 141 L (150-450) k/uL APTT 20.4 L (22.0-30.0) sec Sodium 134 L (137-145) mmol/L Potassium 5.7 H (3.5-5.1) mmol/L BUN 30 H (9-20) mg/dL Creatinine 1.61 H (0.66-1.25) mg/dL Total Bilirubin 1.7 H (0.2-1.3) mg/dL HDL Cholesterol (40.00-60.00) mg/dL 11/13/22 Range/Units 21:37 Plt Count (150-450) k/uL APTT (22.0-30.0) sec Sodium (137-145) mmol/L Potassium (3.5-5.1) mmol/L BUN (9-20) mg/dL Creatinine (0.66-1.25) mg/dL Total Bilirubin (0.2-1.3) mg/dL HDL Cholesterol 71.70 H (40.00-60.00) mg/dL Assessment and Plan Assessment: 1. Dizziness/unsteady gait possible TIA versus NPH Neurology evaluated patient and recommends stroke work-up: MRI of the brain, carotid duplex, 2-D echo, lipid panel. Ordered routine EEG because of these episode of confusion to rule out any underlying seizure discharges -- TSH, vitamin B12, folate, ammonia, hemoglobin A1c because of his confusion episode Patient is on aspirin 325 daily; Lipitor 40 mg daily at bedtime percentage prophylaxis Neurology recommending evaluation of use of anticoagulation especially with atrial fibrillation and we'll defer the addition to the primary and possibly consider cardiology consultation Continue neuro checks Cardiac monitoring PT OT MAJOR ACCOUNT REPRESENTATIVE is consulted Recommend Neuropsych evaluation as outpatient for detailed memory testing and to follow-up with neurologist as outpatient within 1-2 weeks. 2. Acute renal injury/dehydration; IV fluid hydration with normal saline at rate of 75 mL an hour; monitor strict STEPHANIE's, daily weights, renal function and electrolytes; avoid nephrotoxins and hypotension 3. Hyperkalemia; likely related to AK I; we will monitor electrolytes closely; we will treat if potassium level stays elevated despite treatment of acute renal failure 4. Elevated bilirubin; etiology unclear; we will repeat liver enzymes 5. Atrial fibrillation; patient has long-standing history of atrial fibrillation; not able to tell why he is not on anticoagulation therapy 6. Hypertension; Coreg 3.125 mg twice a day 7. Hyperlipidemia; Lipitor 10 mg by mouth daily at bedtime DVT prophylaxis; SCDs/subcu heparin CODE STATUS; full code
[2022-11-16 07:53] VITALS: RESP 16
[2022-11-16] MEDS ORDERED: TAMSULOSIN 0.4 MG CAP.ER.24H PO SCH (08:30)
[2022-11-16] MEDS: METOPROLOL TARTRATE 25 MG TAB PO SCH (08:44)
[2022-11-16] MEDS: APIXABAN 5 MG TAB PO SCH (08:44)
[2022-11-16] MEDS ORDERED: CYANOCOBALAMIN 500 MCG TAB PO SCH (09:00)
--- NOTE | 2022-11-16 09:29 | P.PN ---
Subjective Progress Note Date: 11/15/22 77-year-old gentleman brought to the emergency department today for evaluation after episode of altered mental status. Patient apparently went on his usual daily walk but while out walking became confused and unsteady on his feet and had to be escorted home by a neighbor. Patient seems somewhat confused and unsteady on his feet. at bedside reports this is the third time this has happened in a month the first being October 28 the second being October 31 and then again today. All of the episodes and seemed to resolve after some rest. Patient has followed with his primary care Dr. Ruiz blood work did reveal worsening kidney function there is concerned these episodes might be related to dehydration as the patient does not drink much during the day and only eats one large meal at suppertime. Patient has not been ill recently he's been in his usual state of health no fevers, chills. Been eating his usual diet. the patient also has a very long history of atrial fibrillation and is not anticoagulated, is uncertain why he is not on any anticoagulation but reports that he never has been. CBC with differential is platelet count is 141,000 otherwise rest is unremarkable; Sodium is 134, potassium 5.7, creatinine is 1.61 with a BUN 30; CK of 74 and troponin of less than 0.012 Urine toxicology screen is not detected and serum alcohol was less than 10. 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 Correlate to exclude component of normal pressure hydrocephalus. Moderate burden of chronic small vessel disease. Otherwise no acute intracranial abnormality seen. EKG is reported as age are fibrillation with RVR. Patient is placed on oral anticoagulation therapy per cardiology recommendations, aspirin is discontinued; patient is agreeable; Coreg has been discontinued and patient was placed on metoprolol titrate 25 mg twice a day 2-D echo is ordered and pending Objective - Vital Signs Vital signs: Vital Signs Temp 98.3 F 11/15/22 15:00 Pulse 73 11/15/22 15:00 Resp 16 11/15/22 15:00 BP 124/84 11/15/22 15:00 Pulse Ox 99 11/15/22 15:00 FiO2 Intake & Output 11/14/22 11/15/22 11/15/22 18:59 06:59 18:59 Intake Total 118 118 Balance 118 118 Weight 68.039 kg Intake: Oral 118 118 Other: # Voids 1 1 - Exam VITAL SIGNS: Reviewed. GENERAL: Well-developed in no acute distress. HEENT: Head is normocephalic. Pupils are equal, round. Sclerae anicteric. Mucous membranes of the mouth are moist. Neck supple. No JVD or thyromegaly LUNGS: Respirations even and unlabored. Lungs essentially clear to auscultation bilaterally. HEART: Regular rate and rhythm. S1 and S2 heard. Systolic murmur noted ABDOMEN: Soft. Nondistended. Nontender. EXTREMITIES: Normal range of motion. No clubbing or cyanosis. Peripheral pulses intact. No lower extremity edema NEUROLOGIC: Awake and alert. Oriented x 1. - Labs CBC & Chem 7: 11/13/22 16:54 11/13/22 21:37 Assessment and Plan Assessment: 1. Dizziness/unsteady gait possible TIA versus NPH Neurology evaluated patient and recommends stroke work-up: MRI of the brain, carotid duplex, 2-D echo, lipid panel. Ordered routine EEG because of these episode of confusion to rule out any underlying seizure discharges -- TSH, vitamin B12, folate, ammonia, hemoglobin A1c because of his confusion episode Patient is on aspirin 325 daily; Lipitor 40 mg daily at bedtime percentage prophylaxis Neurology recommending evaluation of use of anticoagulation especially with atrial fibrillation and we'll defer the addition to the primary and possibly consider cardiology consultation Continue neuro checks Cardiac monitoring PT OT DESIGNER is consulted Recommend Neuropsych evaluation as outpatient for detailed memory testing and to follow-up with neurologist as outpatient within 1-2 weeks. 2. Acute renal injury/dehydration; IV fluid hydration with normal saline at rate of 75 mL an hour; monitor strict STEPHANIE's, daily weights, renal function and electrolytes; avoid nephrotoxins and hypotension 3. Hyperkalemia; likely related to AK I; we will monitor electrolytes closely; we will treat if potassium level stays elevated despite treatment of acute renal failure 4. Elevated bilirubin; etiology unclear; we will repeat liver enzymes 5. Atrial fibrillation; patient has long-standing history of atrial fibrillation; not able to tell why he is not on anticoagulation therapy 6. Hypertension; Coreg 3.125 mg twice a day 7. Hyperlipidemia; Lipitor 10 mg by mouth daily at bedtime DVT prophylaxis; SCDs/subcu heparin CODE STATUS; full code
--- NOTE | 2022-11-16 13:11 | PN ---
PROGRESS NOTE SUBJECTIVE: Geraldo is a 77-year-old gentleman with history of atrial fibrillation, who was not taking any anticoagulants, comes into hospital with a CVA. He is feeling better today. An echocardiogram on this admission revealed an ejection fraction of 45% to 50%. He is on Eliquis 5 b.i.d., Lipitor, and Lopressor 25 b.i.d. PHYSICAL EXAMINATION: GENERAL: Comfortable at rest. VITAL SIGNS: Stable. NECK: There is no jugular venous distention. Carotid upstroke is normal. There is no bruit. CHEST: Reveals good air entry bilaterally. HEART: Reveals first and second heart sounds. No gallop. No murmur. No rub. ABDOMEN: Soft, nontender. EXTREMITIES: Do not reveal any edema. Peripheral pulses are felt. ASSESSMENT: 1. Persistent atrial fibrillation with controlled ventricular rate. 2. Cerebrovascular accident, probably secondary to the atrial fibrillation. PLAN: We will treat the patient with the anticoagulant and the beta-galilea. Stable for discharge. Follow up with Dr. Ruiz. MMRUTH / HECTORN: [id number] /
[2022-11-16 14:18] VITALS: BP 101/69; PULSE 78; TEMP 98.1
== END 2022-11-16 15:40 | disposition home or self-care (01) ==
LOC: EC 16:23 → 6NMEDSUR 20:05
PROVIDERS: ADMIT Internal Medicine; ATTEND Internal Medicine
DX: R41.82 Altered mental status, unspecified (principal); G91.9 Hydrocephalus, unspecified; I48.19 Other persistent atrial fibrillation; N17.9 Acute kidney failure, unspecified; E86.0 Dehydration; E87.5 Hyperkalemia; R26.81 Unsteadiness on feet; R42 Dizziness and giddiness; E80.6 Other disorders of bilirubin metabolism; I10 Essential (primary) hypertension; E78.5 Hyperlipidemia, unspecified; I48.92 Unspecified atrial flutter; I07.1 Rheumatic tricuspid insufficiency; Z79.899 Other long term (current) drug therapy
CPT/HCPCS: 96372; 96361 ×2; 96374; 99285; 36415; 95816; 93005; 93306; 97116; 97161; 80061; 80053; 84443; 82607; 82140; 82550; 82746; 84132; 84484; 85025; 85610; 85730; 80306; 83036; 71046; 93880; 70450; 70551; G0378 ×4; G0480; J3420; J1644; J0613; 80320

== ENCOUNTER → 2022-12-02 | Outpatient (CLI) | payer MEDICARE ==
--- NOTE | 2022-12-02 10:50 | US ---
EXAMINATION TYPE: US kidneys/renal and bladder DATE OF EXAM: 12/02/2022 COMPARISON: NONE CLINICAL INDICATION: Male, 77 years old with history of R94.4 ABNORMAL RESULTS OF KIDNEY FUNCTION JERRY DIES; abnormal renal function EXAM MEASUREMENTS: Right Kidney: 11 x 5.2 x 3.9 cm Left Kidney: 10 x 5 x 4.0 cm Right Kidney: Hydronephrosis visualized Left Kidney: Hydronephrosis visualized Bladder: Diverticuli visualized. Bilateral Jets seen: Left only No nephrolithiasis is seen. No masses are identified. The urinary bladder is anechoic. IMPRESSION: There is at least moderate bilateral hydronephrosis seen of uncertain etiology.
== END | disposition home or self-care (01) ==
LOC: RADUSWWP 10:06
PROVIDERS: ATTEND Internal Medicine Geriatric Medicine
DX: N13.30 Unspecified hydronephrosis (principal); R94.4 Abnormal results of kidney function studies
CPT/HCPCS: 76770

== ENCOUNTER 2023-01-12 19:57 | Inpatient (IN) | payer MEDICARE ==
[2023-01-12] MEDS ORDERED: IBUPROFEN 600 MG TAB PO STA (20:33)
[2023-01-12] MEDS ORDERED: ACETAMINOPHEN TAB 500 MG TAB PO STA (20:33)
[2023-01-12] MEDS ORDERED: SODIUM CHLORIDE 0.9% 1,000 ML IV STA ×2 (20:33)
--- NOTE | 2023-01-12 20:34 | ED ---
Altered Mental Status HPI - General Chief Complaint: Altered Mental Status Stated Complaint: AMS Time Seen by Provider: 01/12/23 20:14 Source: patient, EMS, RN notes reviewed, old records reviewed, Caregiver Mode of arrival: EMS Limitations: altered mental status - History of Present Illness Initial Comments: This is a 77-year-old male to the emergency department for evaluation. Patient presents today to the emergency department for evaluation of altered mental status by his for talking or participating is much his activities of daily living since yesterday. Patient has no complaints per the , she is concerned for stroke although he has no history of prior CVA. Patient is found of fever upon arrival but again denies complaints here in the emergency department MD Complaint: altered mental status, confusion, weakness -: days(s) Severity: moderate Consistency of Symptoms: waxing and waning, getting worse Context: history of similar presentation Associated Symptoms: diaphoresis, headaches, weakness - Related Data Home Medications Medication Instructions Recorded Confirmed Atorvastatin [Lipitor] 10 mg PO HS 11/13/22 01/12/23 Cholecalciferol [Vitamin D3 (25 25 mcg PO Q48H 11/13/22 01/12/23 Mcg = 1000 Iu)] Prostate Plus Health Complex 1 tab PO DAILY 11/13/22 01/12/23 Supplement Tamsulosin [Flomax] 0.4 mg PO BID 01/12/23 01/12/23 Previous Rx's Medication Instructions Recorded Apixaban [Eliquis] 5 mg PO BID 30 Days #60 tab 11/16/22 Cyanocobalamin [Vitamin B-12] 1,000 mcg PO DAILY tab 11/16/22 Metoprolol Tartrate [Lopressor] 25 mg PO BID 30 Days #60 tab 11/16/22 cefUROXime axetiL [Ceftin] 500 mg PO BID 5 Days #10 tab 01/15/23 Allergies Allergy/AdvReac Type Severity Reaction Status Date / Time No Known Allergies Allergy Verified 01/12/23 22:18 Review of Systems ROS Statement: Those systems with pertinent positive or pertinent negative responses have been documented in the HPI. ROS Other: All systems not noted in ROS Statement are negative. Past Medical History Past Medical History: Atrial Fibrillation History of Any Multi-Drug Resistant Organisms: None Reported Past Surgical History: No Surgical Hx Reported Past Psychological History: No Psychological Hx Reported Smoking Status: Never smoker Past Alcohol Use History: Occasional Past Drug Use History: None Reported General Exam Limitations: altered mental status General appearance: alert, in no apparent distress, anxious, lethargic, cachectic Head exam: Present: atraumatic, normocephalic, normal inspection Eye exam: Present: normal appearance, PERRL, EOMI. Absent: scleral icterus, conjunctival injection, periorbital swelling ENT exam: Present: normal exam, mucous membranes dry Neck exam: Present: normal inspection. Absent: tenderness, meningismus, ly mphadenopathy Respiratory exam: Present: normal lung sounds bilaterally. Absent: respiratory distress, wheezes, rales, rhonchi, stridor Cardiovascular Exam: Present: normal rhythm, tachycardia, normal heart sounds. Absent: systolic murmur, diastolic murmur, rubs, gallop, clicks GI/Abdominal exam: Present: soft, normal bowel sounds. Absent: distended, tenderness, guarding, rebound, rigid Extremities exam: Present: normal inspection, full ROM, normal capillary refill. Absent: tenderness, pedal edema, joint swelling, calf tenderness Back exam: Present: normal inspection Neurological exam: Present: alert, oriented X3, CN II-XII intact Psychiatric exam: Present: normal affect, normal mood Skin exam: Present: warm, dry, intact, normal color. Absent: rash Course Vital Signs 01/12/23 01/12/23 01/12/23 20:08 20:45 21:15 Temperature 101.7 F H Pulse Rate 101 H 96 121 H Pulse Rate [ Pulse Oximetery ] Respiratory 20 24 24 Rate Blood Pressure 115/75 119/74 116/83 Blood Pressure [Right Arm] O2 Sat by Pulse 96 96 96 Oximetry 01/12/23 01/12/23 01/12/23 21:45 22:15 22:45 Temperature Pulse Rate 105 H 105 H 96 Pulse Rate [ Pulse Oximetery ] Respiratory 19 21 21 Rate Blood Pressure 121/84 111/74 104/64 Blood Pressure [Right Arm] O2 Sat by Pulse 96 97 97 Oximetry 01/12/23 01/12/23 01/13/23 23:30 23:39 00:00 Temperature 98.1 F Pulse Rate 90 94 94 Pulse Rate [ Pulse Oximetery ] Respiratory 21 21 17 Rate Blood Pressure 103/76 Blood Pressure [Right Arm] O2 Sat by Pulse 98 Oximetry 01/13/23 01/13/23 01/13/23 00:33 01:00 02:00 Temperature Pulse Rate 89 76 80 Pulse Rate [ Pulse Oximetery ] Respiratory 19 17 17 Rate Blood Pressure Blood Pressure [Right Arm] O2 Sat by Pulse Oximetry 01/13/23 01/13/23 01/13/23 03:00 04:00 04:12 Temperature Pulse Rate 68 85 86 Pulse Rate [ Pulse Oximetery ] Respiratory 12 15 17 Rate Blood Pressure Blood Pressure [Right Arm] O2 Sat by Pulse Oximetry 01/13/23 01/13/23 01/13/23 06:05 07:00 07:58 Temperature 98.1 F Pulse Rate 89 92 Pulse Rate [ 103 H Pulse Oximetery ] Respiratory 19 20 16 Rate Blood Pressure 104/62 Blood Pressure 111/77 [Right Arm] O2 Sat by Pulse 97 99 Oximetry 01/13/23 01/13/23 01/13/23 08:00 09:00 10:00 Temperature Pulse Rate 121 H 99 98 Pulse Rate [ 103 H Pulse Oximetery ] Respiratory 28 H 20 20 Rate Blood Pressure 111/77 111/77 111/77 Blood Pressure [Right Arm] O2 Sat by Pulse Oximetry 01/13/23 01/13/23 01/13/23 11:00 12:00 13:00 Temperature Pulse Rate 92 80 85 Pulse Rate [ Pulse Oximetery ] Respiratory 20 15 20 Rate Blood Pressure 111/77 111/77 Blood Pressure [Right Arm] O2 Sat by Pulse Oximetry 01/13/23 01/13/23 01/13/23 14:00 15:00 16:00 Temperature 98.2 F Pulse Rate 86 86 95 Pulse Rate [ 83 Pulse Oximetery ] Respiratory 20 21 17 Rate Blood Pressure 106/74 Blood Pressure 106/74 [Right Arm] O2 Sat by Pulse 97 Oximetry 01/13/23 01/13/23 01/13/23 17:00 18:00 19:00 Temperature Pulse Rate 122 H 102 H 107 H Pulse Rate [ Pulse Oximetery ] Respiratory 17 18 14 Rate Blood Pressure 106/74 106/74 Blood Pressure [Right Arm] O2 Sat by Pulse Oximetry 01/13/23 01/13/23 01/13/23 20:00 21:00 21:41 Temperature 98.2 F Pulse Rate 89 105 H Pulse Rate [ Pulse Oximetery ] Respiratory 20 20 Rate Blood Pressure 106/74 Blood Pressure [Right Arm] O2 Sat by Pulse Oximetry 01/13/23 23:30 Temperature 98.6 F Pulse Rate 88 Pulse Rate [ Pulse Oximetery ] Respiratory 18 Rate Blood Pressure 106/74 Blood Pressure [Right Arm] O2 Sat by Pulse 98 Oximetry - Reevaluation(s) Reevaluation #1: 01/13/23 00:13 Medical records reviewed Reevaluation #2: 01/13/23 00:13 Patient symptoms are relatively unchanged although he does seem to be talking well with fever control Reevaluation #3: 01/13/23 00:13 Patient informed results and questions are answered Reevaluation #4: 01/13/23 00:13 Was pt. sent in by a medical professional or institution (, [facility], [facility], urgent care, hospital, or senior living...) When possible be specific @ -no Did you speak to anyone other than the patient for history (EMS, parent, family, police, friend...)? What history was obtained from this source @ -no Did you review nursing and triage notes (agree or disagree)? Why? @ -agree Are old charts reviewed (outside hosp., previous admission, EMS record, old EKG, old radiological studies, urgent care reports/EKG's, senior living records)? Report findings @ -yes Differential Diagnosis (chest pain, altered mental status, abdominal pain women, abdominal pain men, vaginal bleeding, weakness, fever, dyspnea, syncope, headache, dizziness, GI bleed, back pain, seizure, CVA, palpatations, mental health, musculoskeletal)? @ -prior EKG interpreted by me (3pts min.). @ -yes X-rays interpreted by me (1pt min.). @ -yes CT interpreted by me (1pt min.). @ -no U/S interpreted by me (1pt. min.). @ -no What testing was considered but not performed or refused? (CT, X-rays, U/S, labs)? Why? @ -none What meds were considered but not given or refused? Why? @ -none Did you discuss the management of the patient with other professionals (professionals i.e. [facility], [facility], lab, RT, psych nurse, oncology social work, centrifuge separator tender, teacher, parcel post officer, case sealer)? Give summary @ -no Was smoking cessation discussed for >3mins.? @ -no Was critical care preformed (if so, how long)? @ -no Were there social determinants of health that impacted care today? How? (Homelessness, low income, unemployed, alcoholism, drug addiction, transportation, low edu. Level, literacy, decrease access to med. care, care home, rehab)? @ -none Was there de-escalation of care discussed even if they declined (Discuss DNR or withdrawal of care, Hospice)? DNR status @ -no What co-morbidities impacted this encounter? (DM, HTN, Smoking, COPD, CAD, Cancer, CVA, ARF, Chemo, Hep., AIDS, mental health diagnosis, sleep apnea, morbid obesity)? @ -none Was patient admitted / discharged? Hospital course, mention meds given and route, prescriptions, significant lab abnormalities, going to OR and other pe rtinent info. @ - 77 male to the emergency department for evaluation. Patient presents today for altered mental status with . Patient found tract infection here in the emergency room. Patient will be admitted for IV antibiotics, hydration Admitted Undiagnosed new problem with uncertain prognosis? @ -no Drug Therapy requiring intensive monitoring for toxicity (Heparin, Nitro, Insulin, Cardizem)? @ -no Were any procedures done? @ -no Diagnosis/symptom? @ -Fever, UTI Acute, or Chronic, or Acute on Chronic? @ -Acute Uncomplicated (without systemic symptoms) or Complicated (systemic symptoms)? @ -Complicated Side effects of treatment? @ -no Exacerbation, Progression, or Severe Exacerbation? @ -exacerbation Poses a threat to life or bodily function? How? (Chest pain, USA, PA, pneumonia, PE, COPD, DKA, ARF, appy, cholecystitis, CVA, Diverticulitis, Homicidal, Suicidal, threat to staff... and all critical care pts) @ -yes with sepsis in extreme of age Reevaluation #5: 01/13/23 00:13 Differential Fever: Pneumonia, viral URI, endocarditis, myocarditis, pericarditis, otitis, sinusitis, peritonsillar Abscess, retropharyngeal Abscess, epiglottitis, peritonitis, appendicitis, Margot cystitis, diverticulitis, hepatitis, colitis, UTI, PID, TOA, pyelonephritis, prostatitis, epididymitis, meningitis, encephalitis, pulmonary embolism, CVA, thyroid storm, pancreatitis, adrenal crisis, cavernous sinus thrombosis, this is not meant to be an all-inclusive list. Differential Altered Mental Status: Hypoglycemia, DKA, hypercapnia, ETOH, overdose, CO poisoning, trauma, myxedema coma, HTN encephalopathy, infection, encephalitis, psychosis, intercranial hemorrhage, hepatic encephalopathy, meningitis, CVA, this is not meant to be an all-inclusive list - Consultations Consultation #1: Spoke with [facility] reviewed admit this patient Medical Decision Making - Medical Decision Making 77 male to the emergency department for evaluation. Patient presents today for altered mental status with . Patient found tract infection here in the emergency room. Patient will be admitted for IV antibiotics, hydration - Lab Data Result diagrams: 01/15/23 06:04 01/15/23 06:04 Lab Results 01/12/23 01/12/23 01/12/23 Range/Units 20:42 20:42 20:42 WBC 15.3 H (3.8-10.6) k/uL RBC 4.11 L (4.30-5.90) m/uL Hgb 13.7 (13.0-17.5) gm/dL Hct 40.7 (39.0-53.0) % MCV 99.2 (80.0-100.0) fL MCH 33.4 (25.0-35.0) pg MCHC 33.7 (31.0-37.0) g/dL RDW 12.2 (11.5-15.5) % Plt Count 134 L (150-450) k/uL MPV 9.2 Neutrophils % 83 % Lymphocytes % 5 % Monocytes % 10 % Eosinophils % 0 % Basophils % 0 % Neutrophils # 12.7 H (1.3-7.7) k/uL Lymphocytes # 0.8 L (1.0-4.8) k/uL Monocytes # 1.5 H (0-1.0) k/uL Eosinophils # 0.0 (0-0.7) k/uL Basophils # 0.0 (0-0.2) k/uL PT 11.1 (9.0-12.0) sec INR 1.1 (<1.2) APTT 22.6 (22.0-30.0) sec Sodium (137-145) mmol/L Potassium (3.5-5.1) mmol/L Chloride (98-107) mmol/L Carbon Dioxide (22-30) mmol/L Anion Gap mmol/L BUN (9-20) mg/dL Creatinine (0.66-1.25) mg/dL Est GFR (CKD-EPI)AfAm (>60 ml/min/1.73 sqM) Est GFR (CKD-EPI)NonAf (>60 ml/min/1.73 sqM) Glucose (74-99) mg/dL Lactic Ac Sepsis Rflx Plasma Lactic Acid Neptali (0.7-2.0) mmol/L Calcium (8.4-10.2) mg/dL Phosphorus (2.5-4.5) mg/dL Magnesium (1.6-2.3) mg/dL Total Bilirubin (0.2-1.3) mg/dL AST (17-59) U/L ALT (4-49) U/L Alkaline Phosphatase (38-126) U/L Troponin I (0.000-0.034) ng/mL Total Protein (6.3-8.2) g/dL Albumin (3.5-5.0) g/dL Urine Color Colorless Urine Appearance Clear (Clear) Urine pH 5.5 (5.0-8.0) Ur Specific [place] 1.008 (1.001-1.035) Urine Protein Trace H (Negative) Urine Glucose (UA) Negative (Negative) Urine Ketones Negative (Negative) Urine Blood Moderate H (Negative) Urine Nitrite Positive (Negative) Urine Bilirubin Negative (Negative) Urine Urobilinogen <2.0 (<2.0) mg/dL Ur Leukocyte Esterase Moderate H (Negative) Urine RBC 2 (0-5) /hpf Urine WBC 22 H (0-5) /hpf Urine WBC Clumps Rare H (None) /hpf Amorphous Sediment Rare H (None) /hpf Urine Bacteria Rare H (None) /hpf Urine Mucus Rare H (None) /hpf 01/12/23 01/12/23 01/12/23 Range/Units 20:42 20:42 20:42 WBC (3.8-10.6) k/uL RBC (4.30-5.90) m/uL Hgb (13.0-17.5) gm/dL Hct (39.0-53.0) % MCV (80.0-100.0) fL MCH (25.0-35.0) pg MCHC (31.0-37.0) g/dL RDW (11.5-15.5) % Plt Count (150-450) k/uL MPV Neutrophils % % Lymphocytes % % Monocytes % % Eosinophils % % Basophils % % Neutrophils # (1.3-7.7) k/uL Lymphocytes # (1.0-4.8) k/uL Monocytes # (0-1.0) k/uL Eosinophils # (0-0.7) k/uL Basophils # (0-0.2) k/uL PT (9.0-12.0) sec INR (<1.2) APTT (22.0-30.0) sec Sodium 134 L (137-145) mmol/L Potassium 4.5 (3.5-5.1) mmol/L Chloride 99 (98-107) mmol/L Carbon Dioxide 22 (22-30) mmol/L Anion Gap 13 mmol/L BUN 24 H (9-20) mg/dL Creatinine 1.57 H (0.66-1.25) mg/dL Est GFR (CKD-EPI)AfAm 48 (>60 ml/min/1.73 sqM) Est GFR (CKD-EPI)NonAf 42 (>60 ml/min/1.73 sqM) Glucose 112 H (74-99) mg/dL Lactic Ac Sepsis Rflx Plasma Lactic Acid Neptali 2.1 H* (0.7-2.0) mmol/L Calcium 9.6 (8.4-10.2) mg/dL Phosphorus 3.1 (2.5-4.5) mg/dL Magnesium 1.9 (1.6-2.3) mg/dL Total Bilirubin 1.6 H (0.2-1.3) mg/dL AST 26 (17-59) U/L ALT 17 (4-49) U/L Alkaline Phosphatase 53 (38-126) U/L Troponin I <0.012 (0.000-0.034) ng/mL Total Protein 7.2 (6.3-8.2) g/dL Albumin 4.2 (3.5-5.0) g/dL Urine Color Urine Appearance (Clear) Urine pH (5.0-8.0) Ur Specific [place] (1.001-1.035) Urine Protein (Negative) Urine Glucose (UA) (Negative) Urine Ketones (Negative) Urine Blood (Negative) Urine Nitrite (Negative) Urine Bilirubin (Negative) Urine Urobilinogen (<2.0) mg/dL Ur Leukocyte Esterase (Negative) Urine RBC (0-5) /hpf Urine WBC (0-5) /hpf Urine WBC Clumps (None) /hpf Amorphous Sediment (None) /hpf Urine Bacteria (None) /hpf Urine Mucus (None) /hpf 01/12/23 Range/Units 21:09 WBC (3.8-10.6) k/uL RBC (4.30-5.90) m/uL Hgb (13.0-17.5) gm/dL Hct (39.0-53.0) % MCV (80.0-100.0) fL MCH (25.0-35.0) pg MCHC (31.0-37.0) g/dL RDW (11.5-15.5) % Plt Count (150-450) k/uL MPV Neutrophils % % Lymphocytes % % Monocytes % % Eosinophils % % Basophils % % Neutrophils # (1.3-7.7) k/uL Lymphocytes # (1.0-4.8) k/uL Monocytes # (0-1.0) k/uL Eosinophils # (0-0.7) k/uL Basophils # (0-0.2) k/uL PT (9.0-12.0) sec INR (<1.2) APTT (22.0-30.0) sec Sodium (137-145) mmol/L Potassium (3.5-5.1) mmol/L Chloride (98-107) mmol/L Carbon Dioxide (22-30) mmol/L Anion Gap mmol/L BUN (9-20) mg/dL Creatinine (0.66-1.25) mg/dL Est GFR (CKD-EPI)AfAm (>60 ml/min/1.73 sqM) Est GFR (CKD-EPI)NonAf (>60 ml/min/1.73 sqM) Glucose (74-99) mg/dL Lactic Ac Sepsis Rflx Y Plasma Lactic Acid Neptali (0.7-2.0) mmol/L Calcium (8.4-10.2) mg/dL Phosphorus (2.5-4.5) mg/dL Magnesium (1.6-2.3) mg/dL Total Bilirubin (0.2-1.3) mg/dL AST (17-59) U/L ALT (4-49) U/L Alkaline Phosphatase (38-126) U/L Troponin I (0.000-0.034) ng/mL Total Protein (6.3-8.2) g/dL Albumin (3.5-5.0) g/dL Urine Color Urine Appearance (Clear) Urine pH (5.0-8.0) Ur Specific [place] (1.001-1.035) Urine Protein (Negative) Urine Glucose (UA) (Negative) Urine Ketones (Negative) Urine Blood (Negative) Urine Nitrite (Negative) Urine Bilirubin (Negative) Urine Urobilinogen (<2.0) mg/dL Ur Leukocyte Esterase (Negative) Urine RBC (0-5) /hpf Urine WBC (0-5) /hpf Urine WBC Clumps (None) /hpf Amorphous Sediment (None) /hpf Urine Bacteria (None) /hpf Urine Mucus (None) /hpf - EKG Data -: EKG Interpreted by Me (EKG is A. fib with RVR 102 QRS 87 QTC 385) - Radiology Data Radiology results: report reviewed (Chest x-rays negative for acute disease), image reviewed Disposition Clinical Impression: Altered mental status, JUAN (acute kidney injury), UTI (urinary tract infection) Disposition: ADMITTED IP TO THIS HOSP Condition: Fair Is patient prescribed a controlled substance at d/c from ED?: No Time of Disposition: 23:25
[2023-01-12] MEDS: ONDANSETRON 4 MG/2 ML VIAL IVP STA ×2 (20:57→21:05)
[2023-01-12 21:06] LABS: Basophils % (A) 0 %; Eosinophils % (A) 0 %; HCT 40.7 % (39.0-53.0); HGB 13.7 gm/dL (13.0-17.5); Lymphocytes # (A) 0.8 k/uL (1.0-4.8); Lymphocytes % (A) 5 %; MCH 33.4 pg (25.0-35.0); MCHC 33.7 g/dL (31.0-37.0); MCV 99.2 fL (80.0-100.0); Mean Platelet Volume 9.2; Monocytes # (A) 1.5 k/uL (0-1.0); Monocytes % (A) 10 %; Neutrophils # (A) 12.7 k/uL (1.3-7.7); Neutrophils % (A) 83 %; Platelet Count 134 k/uL (150-450); RBC 4.11 m/uL (4.30-5.90); RDW 12.2 % (11.5-15.5); WBC 15.3 k/uL (3.8-10.6)
[2023-01-12 21:08] LABS: ALT 17 U/L (4-49); AST 26 U/L (17-59); African American GFR (CKD) 48 (>60 ml/min/1.73 sqM); Albumin 4.2 g/dL (3.5-5.0); Alkaline Phosphatase 53 U/L (38-126); Anion Gap 13 mmol/L; Blood Urea Nitrogen 24 mg/dL (9-20); Calcium 9.6 mg/dL (8.4-10.2); Carbon Dioxide 22 mmol/L (22-30); Chloride 99 mmol/L (98-107); Glucose 112 mg/dL (74-99); Magnesium 1.9 mg/dL (1.6-2.3); Non-African American GFR(CKD) 42 (>60 ml/min/1.73 sqM); Phosphorus 3.1 mg/dL (2.5-4.5); Potassium 4.5 mmol/L (3.5-5.1); Sodium 134 mmol/L (137-145); Total Bilirubin 1.6 mg/dL (0.2-1.3); Total Protein 7.2 g/dL (6.3-8.2)
--- NOTE | 2023-01-12 21:13 | XR ---
EXAMINATION TYPE: XR chest 2V DATE OF EXAM: 01/12/2023 8:54 PM CLINICAL INDICATION:Male, 77 years old with history of Weakness; [facility] COMPARISON: Chest radiographs from 11/13/2022 TECHNIQUE: XR chest 2V Frontal and lateral views of the chest. FINDINGS: Lungs/Pleura: There is flattening of the diaphragm with increased lucency of the lungs. No evidence o f pneumothorax, pleural effusion or focal consolidation. Pulmonary vascularity: Unremarkable. Heart/mediastinum: Cardiomediastinal silhouette is unremarkable. Musculoskeletal: No acute osseous pathology. Other findings: None IMPRESSION: 1. No acute cardiopulmonary disease process. 2. COPD changes.
[2023-01-12 21:30] LABS: INR 1.1 (<1.2); Partial Thromboplastin Time 22.6 sec (22.0-30.0); Prothrombin Time 11.1 sec (9.0-12.0)
[2023-01-12 21:42] LABS: Amorphous Sediment,Urine Rare /hpf; Appearance,Urine Clear (Clear); Bacteria,Urine Rare /hpf; Bilirubin,Urine Negative (Negative); Blood,Urine Moderate (Negative); Color,Urine Colorless; Glucose,Urine (UA) Negative (Negative); Ketones,Urine Negative (Negative); Leukocyte Esterase,Urine Moderate (Negative); Mucus,Urine Rare /hpf; Nitrite,Urine Positive (Negative); PH, Urine 5.5 (5.0-8.0); Protein,Urine Trace (Negative); RBC,Urine 2 /hpf (0-5); Specific Gravity,Urine 1.008 (1.001-1.035); Urobilinogen,Urine <2.0 mg/dL (<2.0); WBC,Urine 22 /hpf (0-5)
[2023-01-12] MEDS ORDERED: MORPHINE SULFATE 4 MG/ML SYRINGE IV PRN (23:21)
[2023-01-12] MEDS ORDERED: ONDANSETRON 4 MG/2 ML VIAL IVP PRN (23:21)
[2023-01-12] MEDS ORDERED: NALOXONE 0.4 MG/ML 1 ML VIAL IV PRN (23:21)
[2023-01-13 08:03] LABS: ALT 15 U/L (4-49); AST 23 U/L (17-59); African American GFR (CKD) 44 (>60 ml/min/1.73 sqM); Albumin 3.6 g/dL (3.5-5.0); Alkaline Phosphatase 47 U/L (38-126); Anion Gap 9 mmol/L; Blood Urea Nitrogen 25 mg/dL (9-20); Carbon Dioxide 26 mmol/L (22-30); Chloride 102 mmol/L (98-107); Non-African American GFR(CKD) 38 (>60 ml/min/1.73 sqM); Phosphorus 3.3 mg/dL (2.5-4.5); Potassium 4.4 mmol/L (3.5-5.1); Sodium 137 mmol/L (137-145); Total Bilirubin 1.4 mg/dL (0.2-1.3); Total Protein 6.5 g/dL (6.3-8.2)
[2023-01-13 08:16] LABS: Basophils % (A) 0 %; Eosinophils # (A) 0.1 k/uL (0-0.7); Eosinophils % (A) 1 %; HCT 43.8 % (39.0-53.0); HGB 14.2 gm/dL (13.0-17.5); Lymphocytes # (A) 0.6 k/uL (1.0-4.8); Lymphocytes % (A) 5 %; MCHC 32.5 g/dL (31.0-37.0); MCV 101.4 fL (80.0-100.0); Mean Platelet Volume 8.6; Monocytes # (A) 0.8 k/uL (0-1.0); Monocytes % (A) 6 %; Neutrophils # (A) 11.6 k/uL (1.3-7.7); Neutrophils % (A) 87 %; Platelet Count 115 k/uL (150-450); RBC 4.32 m/uL (4.30-5.90); RDW 12.2 % (11.5-15.5); WBC 13.3 k/uL (3.8-10.6)
[2023-01-13 08:33] LABS: Glucose 103 mg/dL (74-99); Magnesium 2.1 mg/dL (1.6-2.3)
[2023-01-13] MEDS: METOPROLOL TARTRATE 25 MG TAB PO SCH ×2 (10:08→21:28)
--- NOTE | 2023-01-13 10:42 | CT ---
EXAMINATION TYPE: CT brain wo con DATE OF EXAM: 01/13/2023 COMPARISON: 11/13/2022 HISTORY: AMS CT DLP: [address] of the brain was performed. The ventricles, basal cisterns and sulci overlying the cerebral convexities demonstrate mild to moder ate enlargement. There is no evidence for intracranial hemorrhage or sulcal effacement. There is decreased attenuation about the periventricular white matter and deep white matter of both c erebral hemispheres, compatible with chronic small vessel ischemia. Differential diagnosis does inclu de demyelination. No mass effects are seen.No midline shift. Osseous calvarium is intact. If symptoms persist consider MRI. IMPRESSION: 1. Age related atrophic and chronic small vessel ischemic change without acute intracranial process s een at this time.
--- NOTE | 2023-01-13 14:24 | P.HPIM ---
History of Present Illness H&P Date: 01/13/23 History of present illness; patient is a 77-year-old gentleman with past medical history significant for atrial fibrillation, hypertension, hyperlipidemia who was brought to the ER by his for confusion. Patient was seen in the ER in November with similar complaints. . Patient's last admission was in November of this year for confusion at which time patient was seen by neurology and cardiology, patient was started on anticoagulation by cardiology at that time. Patient was also noted to have low vitamin B-12 level at that time. For this encounter noticed that the patient was not participating in his daily activities. Patient was more lethargic. According to patient was also more confused. No complain of any slurred speech. No complaint of weakness of any extremity. No complain of facial droop. There was no complain of any chest pain or shortness of breath. No complain of recent fall. Because of confusion, Patient was brought to the ER, initial vital signs showed patient to have a fever of 101 Initial lab work done in the ER showed WBC 15.3, hemoglobin 13.7, platelet count 134, sodium 134, potassium 4.5, BUN 24, creatinine 1.57, lactate 2.1 UA positive for leukocyte esterase and urine nitrite. Chest x-ray done in the ER showed no acute cardiac process EKG done showed heart rate of 102, QRS 87, no P waves seen, irregular in rhythm, no ST segment elevation or T-wave inversions Patient admitted to medicine service REVIEW OF SYSTEMS: CONSTITUTIONAL: As mentioned in HPI HEENT: No recent visual problems or hearing problems. Denied any sore throat. CARDIOVASCULAR: No chest pain, orthopnea, PND, no palpitations, no syncope. PULMONARY: No shortness of breath, no cough, no hemoptysis. GASTROINTESTINAL: No diarrhea, no nausea, no vomiting, no abdominal pain. NEUROLOGICAL: As mentioned in HPI HEMATOLOGICAL: Denies any bleeding or petechiae. GENITOURINARY: Denies any burning micturition, frequency, or urgency. MUSCULOSKELETAL/RHEUMATOLOGICAL: Denies any joint pain, swelling, or any muscle pain. ENDOCRINE: Denies any polyuria or polydipsia. The rest of the 14-point review of systems is negative. PHYSICAL EXAMINATION: GENERAL: The patient is alert and oriented x3, not in any acute distress. Well developed, well nourished. HEENT: Pupils are round and equally reacting to light. EOMI. No scleral icterus. No conjunctival pallor. Normocephalic, atraumatic. No pharyngeal erythema. No thyromegaly. CARDIOVASCULAR: S1 and S2 present. No murmurs, rubs, or gallops. PULMONARY: Chest is clear to auscultation, no wheezing or crackles. ABDOMEN: Soft, nontender, nondistended, normoactive bowel sounds. No palpable organomegaly. MUSCULOSKELETAL: No joint swelling or deformity. EXTREMITIES: No cyanosis, clubbing, or pedal edema. NEUROLOGICAL: Gross neurological examination did not reveal any focal deficits. SKIN: No rashes. Assessment and plan UTI Acute metabolic encephalopathy Chronic atrial fibrillation Hypertension Hyperlipidemia Monitor vital signs Monitor CBC Monitor CMP Continue telemetry monitoring Continue IV fluids continue IV Rocephin Order CT head Ordered vitamin B12 Ordered blood cultures Order urine cultures Resume home meds Labs and medication were reviewed.. Continue same treatment. Continue with symptomatic treatment. Resume home medication. Monitor labs and vitals. DVT and GI prophylaxis. Further recommendations as per clinical course of the patient Dictation was produced using [employer] dictation software. please excuse any grammatical, word or spelling errors. Past Medical History Past Medical History: Atrial Fibrillation History of Any Multi-Drug Resistant Organisms: None Reported Past Surgical History: No Surgical Hx Reported Past Psychological History: No Psychological Hx Reported Smoking Status: Never smoker Past Alcohol Use History: Occasional Past Drug Use History: None Reported Medications and Allergies Home Medications Medication Instructions Recorded Confirmed Type Atorvastatin [Lipitor] 10 mg PO HS 11/13/22 01/12/23 History Cholecalciferol [Vitamin D3 (25 25 mcg PO Q48H 11/13/22 01/12/23 History Mcg = 1000 Iu)] Prostate Plus Health Complex 1 tab PO DAILY 11/13/22 01/12/23 History Supplement Apixaban [Eliquis] 5 mg PO BID 30 Days #60 tab 11/16/22 01/12/23 Rx Cyanocobalamin [Vitamin B-12] 1,000 mcg PO DAILY tab 11/16/22 01/12/23 Rx Metoprolol Tartrate [Lopressor] 25 mg PO BID 30 Days #60 tab 11/16/22 01/12/23 Rx Tamsulosin [Flomax] 0.4 mg PO BID 01/12/23 01/12/23 History Allergies Allergy/AdvReac Type Severity Reaction Status Date / Time No Known Allergies Allergy Verified 01/12/23 22:18 Physical Exam Vitals: Vital Signs Temp Pulse Pulse Resp BP BP Pulse Ox 01/13/23 08:00 103 H 16 01/13/23 07:58 98.1 F 103 H 16 111/77 99 01/13/23 06:05 89 19 104/62 97 01/13/23 04:12 86 17 01/13/23 00:33 89 19 01/12/23 23:30 98.1 F 90 21 103/76 98 01/12/23 22:45 96 21 104/64 97 01/12/23 22:15 105 H 21 111/74 97 01/12/23 21:45 105 H 19 121/84 96 01/12/23 21:15 121 H 24 116/83 96 01/12/23 20:45 96 24 119/74 96 01/12/23 20:08 101.7 F H 101 H 20 115/75 96 Intake and Output 01/12/23 01/13/23 01/13/23 22:59 06:59 14:59 Output Total 350 Balance -350 Output: Urine 350 Other: Voiding Method Urinal Weight 68.039 kg Results CBC & Chem 7: 01/13/23 07:39 01/13/23 07:39 Labs: Abnormal Lab Results - Last 24 Hours (Table) 01/12/23 01/12/23 01/12/23 Range/Units 20:42 20:42 20:42 WBC 15.3 H (3.8-10.6) k/uL RBC 4.11 L (4.30-5.90) m/uL MCV (80.0-100.0) fL Plt Count 134 L (150-450) k/uL Neutrophils # 12.7 H (1.3-7.7) k/uL Lymphocytes # 0.8 L (1.0-4.8) k/uL Monocytes # 1.5 H (0-1.0) k/uL Sodium 134 L (137-145) mmol/L BUN 24 H (9-20) mg/dL Creatinine 1.57 H (0.66-1.25) mg/dL Glucose 112 H (74-99) mg/dL Plasma Lactic Acid Neptali (0.7-2.0) mmol/L Total Bilirubin 1.6 H (0.2-1.3) mg/dL Urine Protein Trace H (Negative) Urine Blood Moderate H (Negative) Ur Leukocyte Esterase Moderate H (Negative) Urine WBC 22 H (0-5) /hpf Urine WBC Clumps Rare H (None) /hpf Amorphous Sediment Rare H (None) /hpf Urine Bacteria Rare H (None) /hpf Urine Mucus Rare H (None) /hpf 01/12/23 01/13/23 01/13/23 Range/Units 20:42 07:39 07:39 WBC 13.3 H (3.8-10.6) k/uL RBC (4.30-5.90) m/uL MCV 101.4 H (80.0-100.0) fL Plt Count 115 L (150-450) k/uL Neutrophils # 11.6 H (1.3-7.7) k/uL Lymphocytes # 0.6 L (1.0-4.8) k/uL Monocytes # (0-1.0) k/uL Sodium (137-145) mmol/L BUN 25 H (9-20) mg/dL Creatinine 1.69 H (0.66-1.25) mg/dL Glucose 103 H (74-99) mg/dL Plasma Lactic Acid Neptali 2.1 H* (0.7-2.0) mmol/L Total Bilirubin 1.4 H (0.2-1.3) mg/dL Urine Protein (Negative) Urine Blood (Negative) Ur Leukocyte Esterase (Negative) Urine WBC (0-5) /hpf Urine WBC Clumps (None) /hpf Amorphous Sediment (None) /hpf Urine Bacteria (None) /hpf Urine Mucus (None) /hpf
[2023-01-13] MEDS: TAMSULOSIN 0.4 MG CAP.ER.24H PO SCH (21:28)
[2023-01-13] MEDS: ATORVASTATIN 10 MG TAB PO SCH (21:28)
[2023-01-14] MEDS: METOPROLOL TARTRATE 25 MG TAB PO SCH ×2 (09:00→20:43)
[2023-01-14] MEDS: CYANOCOBALAMIN 500 MCG TAB PO SCH (09:00)
[2023-01-14] MEDS ORDERED: CHOLECALCIFEROL 25 MCG (1000 IU) TABLET PO SCH (09:00)
[2023-01-14] MEDS: TAMSULOSIN 0.4 MG CAP.ER.24H PO SCH ×2 (09:00→20:43)
[2023-01-14] MEDS: ATORVASTATIN 10 MG TAB PO SCH (20:43)
[2023-01-14] MEDS: SODIUM CHLORIDE 0.9% 1,000 ML IV SCH (20:43)
[2023-01-15 02:43] VITALS: TEMP 98.9
[2023-01-15 08:42] LABS: HCT 37.4 % (39.6-50.0); HGB 12.4 d/dL (13.0-17.0); MCH 33.1 pg (27.0-32.0); MCHC 33.2 d/dL (32.0-37.0); MCV 99.7 FL (80.0-97.0); Mean Platelet Volume 12.1 FL (9.5-12.2); NRBC Per 100 WBC 0 X 10*3/uL (0.00-0.01); Platelet Count 142 X 10*3/uL (140-440); RBC 3.75 X 10*6/uL (4.40-5.60); RDW 11.9 % (11.5-14.5); WBC 11.28 X 10*3/uL (4.50-10.00)
[2023-01-15 08:57] LABS: BUN/Creat Ratio 12.75 Ratio (12.00-20.00); Blood Urea Nitrogen 20.4 mg/dL (9.0-27.0); Calcium 8.9 mg/dL (8.7-10.3); Carbon Dioxide 23.5 mmol/L (21.6-31.8); Chloride 102 mmol/L (96-109); Glucose 97 mg/dL (70-110); Potassium 4.2 mmol/L (3.5-5.5); Sodium 139 mmol/L (135-145)
[2023-01-15 09:29] LABS: Basophils # (A) 0.06 X 10*3/uL (0.00-0.10); Basophils % (A) 0.5 %; Eosinophils # (A) 0.12 X 10*3/uL (0.04-0.35); Eosinophils % (A) 1.1 %; Lymphocytes # (A) 1.08 X 10*3/uL (0.90-5.00); Lymphocytes % (A) 9.6 %; Monocytes # (A) 1.58 X 10*3/uL (0.20-1.00); Neutrophils # (A) 8.39 X 10*3/uL (1.80-7.70); Neutrophils % (A) 74.4 %; RBC Morphology Normal (Normal)
[2023-01-15] MEDS: CYANOCOBALAMIN 500 MCG TAB PO SCH (10:47)
[2023-01-15] MEDS: METOPROLOL TARTRATE 25 MG TAB PO SCH (10:47)
[2023-01-15] MEDS: TAMSULOSIN 0.4 MG CAP.ER.24H PO SCH (10:47)
[2023-01-15] MEDS: SODIUM CHLORIDE 0.9% 1,000 ML IV SCH (10:47)
[2023-01-15 14:50] VITALS: BP 127/84; PULSE 93; RESP 20
--- NOTE | 2023-01-20 13:38 | CDI ---
Documentation Clarification Form Date: 01/20/2023 01:11:45 PM From: Nora Gonzalez RN, CCDS Email: [email or web address] Admit Date: 01/12/2023 11:23:00 PM Patient Name: Geraldo Uriarte Visit Number: [id number] Discharge Date: 01/15/2023 04:01:00 PM ATTENTION: The Clinical Documentation Specialists (CDI) and [facility] Coding Staff appreciate your assistance in clarifying documentation. Please respond to the clarification below the line at the bottom and electronically sign. The CDI & [facility] Coding staff will review the response and follow-up if needed. Please note: Queries are made part of the Legal Health Record. If you have any questions, please contact the author of this message via ITS. Dr. Sarbjit Clay The patient had a UTI and metabolic encephalopathy. Based on this information and the findings below, is there an additional diagnosis that is clinically appropriate for this patient? History/Risk Factors: A fib, HTN, HLD. Presented to the ED with fever and confusion. Admitted with UTI and metabolic encephalopathy. Clinical Indicators: ED: "altered mental status, JUAN, UTI." H&P: "UA positive for leukocyte esterase and urine nitrite. UTI. Acute metabolic encephalopathy." 01/12-01/15 WBC: 15.3-13.3-11.28 01/12 Lactic acid: 2.1 01/13 Urine culture: Staphylococcus epidermidis Vitals signs: 01/12 Temp 101.7, HR 112-591-088-90; 01/13 RR 28 Treatment: Tylenol 1000mg po x1 on 01/12; Ibuprofen 600mg po x1 on 01/12 Antibiotics: IV Rocephin 2gm x1 on 01/12 then Q24H 01/12-01/14 IV Bolus: 1L 0.9 NS on 01/12 then 130mL/hr on 01/13 then 75mL/hr 01/13-01/14 Is there an additional diagnosis that is clinically appropriate for this patient? [ x ] Sepsis, present on admission [ ] No additional diagnosis [ ] Other, please specify [ ] Unable to determine SIRS Criteria: 2 or more of the following may indicate SIRS Temperature < 96.8F (36C) or > 101.0F (38.3C) Heart Rate > 90 bpm Respiratory Rate > 20 breaths/min or PaCO2 < 32 mmHg White Blood Cell Count > 12,000 or < 4,000 cells/mm3 or > 10% bands (Template Last Reviewed: April 2022) [facility]
--- NOTE | 2023-01-21 20:13 | P.PN ---
Subjective Progress Note Date: 01/14/23 History of present illness; patient is a 77-year-old gentleman with past medical history significant for atrial fibrillation, hypertension, hyperlipidemia who was brought to the ER by his for confusion. Patient was seen in the ER in November with similar complaints. . Patient's last admission was in November of this year for confusion at which time patient was seen by neurology and cardiology, patient was started on anticoagulation by cardiology at that time. Patient was also noted to have low vitamin B-12 level at that time. For this encounter noticed that the patient was not participating in his daily activities. Patient was more lethargic. According to patient was also more confused. No complain of any slurred speech. No complaint of weakness of any extremity. No complain of facial droop. There was no complain of any chest pain or shortness of breath. No complain of recent fall. Because of confusion, Patient was brought to the ER, initial vital signs showed patient to have a fever of 101 Initial lab work done in the ER showed WBC 15.3, hemoglobin 13.7, platelet count 134, sodium 134, potassium 4.5, BUN 24, creatinine 1.57, lactate 2.1 UA positive for leukocyte esterase and urine nitrite. Chest x-ray done in the ER showed no acute cardiac process EKG done showed heart rate of 102, QRS 87, no P waves seen, irregular in rhythm, no ST segment elevation or T-wave inversions 01/14/2023 Patient is currently lying in the bed. Awake alert and oriented. Patient is able to answer simple questions. No complaints of chest pain or shortness of breath. Mentation is improving. No complaints of fever or chills. No cough or sputum production. Patient is being continued on antibiotics per urinary tract infection. Currently on IV hydration. Laboratory data showed WBC trending down to 13.3 hemoglobin 14.2 and platelets 115 and neutrophils 11.6 BUN 25 and creatinine slightly elevated to 1.69. Lactic acidosis normalized. Total bilirubin level is 1.4 liver enzymes are not elevated. B12 and folate within normal limits. Influenza A, B, RSV and COVID-19 PCR not detected. Patient will be continued on Flomax. Denies any difficulty in urination. CT head showed age-related atrophic and chronic small vessel ischemic changes without acute intracranial process seen at this time. Medications reviewed. REVIEW OF SYSTEMS: CONSTITUTIONAL: As mentioned in HPI HEENT: No recent visual problems or hearing problems. Denied any sore throat. CARDIOVASCULAR: No chest pain, orthopnea, PND, no palpitations, no syncope. PULMONARY: No shortness of breath, no cough, no hemoptysis. GASTROINTESTINAL: No diarrhea, no nausea, no vomiting, no abdominal pain. NEUROLOGICAL: As mentioned in HPI HEMATOLOGICAL: Denies any bleeding or petechiae. GENITOURINARY: Denies any burning micturition, frequency, or urgency. MUSCULOSKELETAL/RHEUMATOLOGICAL: Denies any joint pain, swelling, or any muscle pain. ENDOCRINE: Denies any polyuria or polydipsia. The rest of the 14-point review of systems is negative. PHYSICAL EXAMINATION: GENERAL: The patient is alert and oriented x3, not in any acute distress. Well developed, well nourished. HEENT: Pupils are round and equally reacting to light. EOMI. No scleral icterus. No conjunctival pallor. Normocephalic, atraumatic. No pharyngeal erythema. No thyromegaly. CARDIOVASCULAR: S1 and S2 present. No murmurs, rubs, or gallops. PULMONARY: Chest is clear to auscultation, no wheezing or crackles. ABDOMEN: Soft, nontender, nondistended, normoactive bowel sounds. No palpable organomegaly. MUSCULOSKELETAL: No joint swelling or deformity. EXTREMITIES: No cyanosis, clubbing, or pedal edema. NEUROLOGICAL: Gross neurological examination did not reveal any focal deficits. SKIN: No rashes. Assessment and plan Acute UTI Mild acute on chronic kidney disease stage III. Baseline creatinine level 1.5 Acute metabolic encephalopathy, improving History of urinary retention. On Flomax. Was seen by urology as an outpatient. Chronic atrial fibrillation Hypertension Hyperlipidemia Monitor vital signs Monitor CBC Monitor CMP Continue telemetry monitoring Continue IV fluids continue IV Rocephin Follow-up urine culture and renal function. Continue with Flomax. Labs and medication were reviewed.. Continue with symptomatic treatment. Monitor labs and vitals. DVT and GI prophylaxis. pt/ot Objective - Vital Signs Vital signs: Vital Signs Temp 98.5 F 01/14/23 07:32 Pulse 76 01/14/23 07:32 Resp 18 01/14/23 07:32 BP 124/65 01/14/23 07:32 Pulse Ox 97 01/14/23 07:32 FiO2 Intake & Output 01/14/23 01/14/23 01/15/23 06:59 18:59 06:59 Intake Total 240 100 Output Total 900 700 Balance -660 -600 Intake: Intake, IV Titration 100 Amount cefTRIAXone 2 gm In 100 Sodium Chloride 0.9% 50 ml @ 100 mls/hr IVPB Q24H [facility] Rx#:[id number] Oral 240 Output: Urine 900 700 Other: Voiding Method Urinal Urinal # Voids 1 - Labs CBC & Chem 7: 01/15/23 06:04 01/15/23 06:04 Labs: Microbiology - Last 24 Hours (Table) 01/13/23 11:34 Blood Culture - Preliminary Blood
--- NOTE | 2023-01-21 20:15 | P.DS ---
Providers Date of admission: 01/12/23 23:23 Expected date of discharge: 01/15/23 Attending physician: Sukhi Mendez Primary care physician: [facility] Hospital Course: Discharge diagnosis Acute UTI Mild acute on chronic kidney disease stage III. Baseline creatinine level 1.5 Acute metabolic encephalopathy, improving History of urinary retention. On Flomax. Was seen by urology as an outpatient. Chronic atrial fibrillation Hypertension Hyperlipidemia Hospital course History of present illness; patient is a 77-year-old gentleman with past medical history significant for atrial fibrillation, hypertension, hyperlipidemia who was brought to the ER by his for confusion. Patient was seen in the ER in November with similar complaints. . Patient's last admission was in November of this year for confusion at which time patient was seen by neurology and cardiology, patient was started on anticoagulation by cardiology at that time. Patient was also noted to have low vitamin B-12 level at that time. For this encounter noticed that the patient was not participating in his daily activities. Patient was more lethargic. According to patient was also more confused. No complain of any slurred speech. No complaint of weakness of any extremity. No complain of facial droop. There was no complain of any chest pain or shortness of breath. No complain of recent fall. Because of confusion, Patient was brought to the ER, initial vital signs showed patient to have a fever of 101 Initial lab work done in the ER showed WBC 15.3, hemoglobin 13.7, platelet count 134, sodium 134, potassium 4.5, BUN 24, creatinine 1.57, lactate 2.1 UA positive for leukocyte esterase and urine nitrite. Chest x-ray done in the ER showed no acute cardiac process EKG done showed heart rate of 102, QRS 87, no P waves seen, irregular in rhythm, no ST segment elevation or T-wave inversions 01/14/2023 Patient is currently lying in the bed. Awake alert and oriented. Patient is able to answer simple questions. No complaints of chest pain or shortness of breath. Mentation is improving. No complaints of fever or chills. No cough or sputum production. Patient is being continued on antibiotics per urinary tract infection. Currentl y on IV hydration. Laboratory data showed WBC trending down to 13.3 hemoglobin 14.2 and platelets 115 and neutrophils 11.6 BUN 25 and creatinine slightly elevated to 1.69. Lactic acidosis normalized. Total bilirubin level is 1.4 liver enzymes are not elevated. B12 and folate within normal limits. Influenza A, B, RSV and COVID-19 PCR not detected. Patient will be continued on Flomax. Denies any difficulty in urination. CT head showed age-related atrophic and chronic small vessel ischemic changes without acute intracranial process seen at this time. 01/15/2023 Patient is currently resting in the bed. Awake alert and oriented x3. No complaints of chest pain or shortness of breath. No nausea vomiting abdominal pain or diarrhea. No cough or sputum production. Laboratory data WBC trending down to 11.2 hemoglobin 12.4 and platelets 142 BUN 20.4 and creatinine 1.6. Patient was seen by PT OT. Patient has been discharged home with family. Continue with antibiotic course in the form of Ceftin for the next 5 days to complete the course. Follow-up with primary care physician in 1 to 3 days. PHYSICAL EXAMINATION: GENERAL: The patient is alert and oriented x3, not in any acute distress. Well developed, well nourished. HEENT: Pupils are round and equally reacting to light. EOMI. No scleral icterus. No conjunctival pallor. Normocephalic, atraumatic. No pharyngeal erythema. No thyromegaly. CARDIOVASCULAR: S1 and S2 present. No murmurs, rubs, or gallops. PULMONARY: Chest is clear to auscultation, no wheezing or crackles. ABDOMEN: Soft, nontender, nondistended, normoactive bowel sounds. No palpable organomegaly. MUSCULOSKELETAL: No joint swelling or deformity. EXTREMITIES: No cyanosis, clubbing, or pedal edema. NEUROLOGICAL: Gross neurological examination did not reveal any focal deficits. SKIN: No rashes. Discharge vitals reviewed. Patient Condition at Discharge: Fair Plan - Discharge Summary New Discharge Prescriptions: New cefUROXime axetiL [Ceftin] 500 mg PO BID 5 Days #10 tab Continue Cholecalciferol [Vitamin D3 (25 Mcg = 1000 Iu)] 25 mcg PO Q48H Atorvastatin [Lipitor] 10 mg PO HS Prostate Plus Health Complex Supplement 1 tab PO DAILY Metoprolol Tartrate [Lopressor] 25 mg PO BID 30 Days #60 tab Cyanocobalamin [Vitamin B-12] 1,000 mcg PO DAILY tab Tamsulosin [Flomax] 0.4 mg PO BID Apixaban [Eliquis] 5 mg PO BID 30 Days #60 tab Discharge Medication List Atorvastatin [Lipitor] 10 mg PO HS 11/13/22 [History] Cholecalciferol [Vitamin D3 (25 Mcg = 1000 Iu)] 25 mcg PO Q48H 11/13/22 [History] Prostate Plus Health Complex Supplement 1 tab PO DAILY 11/13/22 [History] Apixaban [Eliquis] 5 mg PO BID 30 Days #60 tab 11/16/22 [Rx] Cyanocobalamin [Vitamin B-12] 1,000 mcg PO DAILY tab 11/16/22 [Rx] Metoprolol Tartrate [Lopressor] 25 mg PO BID 30 Days #60 tab 11/16/22 [Rx] Tamsulosin [Flomax] 0.4 mg PO BID 01/12/23 [History] cefUROXime axetiL [Ceftin] 500 mg PO BID 5 Days #10 tab 01/15/23 [Rx] Follow up Appointment(s)/Referral(s): Yeison Ruiz MD [Primary Care Provider] - 1-2 days Discharge Disposition: HOME SELF-CARE
== END 2023-01-15 16:01 | disposition home or self-care (01) | DRG 871 ==
LOC: EC 19:57 → 4SSUR 23:23 → 5NMEDONC 01-13 21:51
PROVIDERS: ADMIT Hospitalist; ATTEND Hospitalist
DX: A41.9 Sepsis, unspecified organism (principal); G93.41 Metabolic encephalopathy; E87.20 Acidosis, unspecified; N17.9 Acute kidney failure, unspecified; I48.20 Chronic atrial fibrillation, unspecified; N39.0 Urinary tract infection, site not specified; N18.30 Chronic kidney disease, stage 3 unspecified; I12.9 Hypertensive chronic kidney disease with stage 1 through stage 4 chronic kidney disease, or unspecified chronic kidney disease; R33.9 Retention of urine, unspecified; E78.5 Hyperlipidemia, unspecified; Z20.822 Contact with and (suspected) exposure to COVID-19; Z79.01 Long term (current) use of anticoagulants; Z79.899 Other long term (current) drug therapy
CPT/HCPCS: 36415; 70450; 71046; 80048; 80053; 81001; 82607; 82747; 83605; 83735; 84100; 84484; 85025; 85610; 85730; 87040; 87077; 87086; 87186; 87636; 93005; 96361; 96365; 99285

== ENCOUNTER 2023-01-28 14:45 | Inpatient (IN) | payer MEDICARE ==
--- NOTE | 2023-01-28 15:32 | ED ---
Altered Mental Status HPI - General Source: patient, family, RN notes reviewed Mode of arrival: wheelchair Limitations: no limitations <Gal Islas - Last Filed: 01/28/23 15:30> <Sheng Nash - Last Filed: 02/10/23 08:41> - General Chief Complaint: Altered Mental Status Stated Complaint: possible uti again extra tired Time Seen by Provider: 01/28/23 15:30 - History of Present Illness Initial Comments: 77-year-old presents emergency Department with significant other for evaluation of confusion. Patient's had increased fatigue, confusion especially today. Patient had recent admission for UTI summer complaints. Patient also has a dry cough. (Gal Islas) - Related Data Home Medications Medication Instructions Recorded Confirmed Atorvastatin [Lipitor] 10 mg PO HS 11/13/22 01/28/23 Cholecalciferol [Vitamin D3 (25 25 mcg PO Q48H 11/13/22 01/28/23 Mcg = 1000 Iu)] Prostate Plus Health Complex 1 tab PO DAILY 11/13/22 01/28/23 Supplement Tamsulosin [Flomax] 0.4 mg PO BID 01/12/23 01/28/23 Previous Rx's Medication Instructions Recorded Apixaban [Eliquis] 5 mg PO BID 30 Days #60 tab 11/16/22 Cyanocobalamin [Vitamin B-12] 1,000 mcg PO DAILY tab 11/16/22 Metoprolol Tartrate [Lopressor] 25 mg PO BID 30 Days #60 tab 11/16/22 Acetaminophen Tab [Tylenol] 650 mg PO Q6HR PRN tab 02/04/23 Famotidine [Pepcid] 20 mg PO DAILY tab 02/04/23 Mag Hydrox/Al Hydrox/Simeth 15 ml PO Q6HR PRN ml 02/04/23 [Maalox] cefUROXime axetiL [Ceftin] 500 mg PO BID 10 Days #20 tab 02/04/23 Allergies Allergy/AdvReac Type Severity Reaction Status Date / Time orange juice Allergy Rash/Hives Verified 01/29/23 09:13 tomato Allergy Rash/Hives Verified 01/29/23 09:14 Review of Systems ROS Other: All systems not noted in ROS Statement are negative. <Gal Islas - Last Filed: 01/28/23 15:30> ROS Other: All systems not noted in ROS Statement are negative. <Sheng Nash - Last Filed: 02/10/23 08:41> ROS Statement: Those systems with pertinent positive or pertinent negative responses have been documented in the HPI. Past Medical History Past Medical History: No Reported History History of Any Multi-Drug Resistant Organisms: None Reported Past Surgical History: No Surgical Hx Reported Past Psychological History: No Psychological Hx Reported Smoking Status: Never smoker Past Alcohol Use History: None Reported Past Drug Use History: None Reported <Gal Islas - Last Filed: 01/28/23 15:30> General Exam Limitations: no limitations <Gal Islas - Last Filed: 01/28/23 15:30> General appearance: alert, in no apparent distress Head exam: Present: atraumatic, normocephalic Eye exam: Present: normal appearance. Absent: scleral icterus, conjunctival injection ENT exam: Present: mucous membranes dry Neck exam: Present: normal inspection, full ROM Respiratory exam: Present: normal lung sounds bilaterally. Absent: respiratory distress, wheezes, rales, rhonchi, stridor Cardiovascular Exam: Present: regular rate, normal rhythm, normal heart sounds. Absent: systolic murmur, diastolic murmur, rubs, gallop GI/Abdominal exam: Present: soft. Absent: distended, tenderness, guarding, rebound, rigid, mass Extremities exam: Present: normal inspection, normal capillary refill. Absent: pedal edema, calf tenderness Back exam: Present: normal inspection. Absent: CVA tenderness (R), CVA tenderness (L) Neurological exam: Present: alert, CN II-XII intact. Absent: oriented X3, motor sensory deficit Skin exam: Present: warm, dry, intact, normal color. Absent: rash <Sheng Nash - Last Filed: 02/10/23 08:41> - General Exam Comments Initial Comments: Visual Physical Exam Vital signs reviewed General: Well-appearing, nontoxic, no acute distress. Head: Normocephalic, atraumatic Eyes: PERRLA, EOMI ENT: Airway patent Chest: Nonlabored breathing Skin: No visual rash, normal skin tone Neuro: Alert and oriented 3 Musculoskeletal: No gross abnormalities (Gal Islas) Course Vital Signs 01/28/23 01/28/23 01/29/23 14:53 19:42 06:00 Temperature 98.9 F 99.0 F 97.8 F Pulse Rate 90 97 95 Respiratory 18 18 18 Rate Blood Pressure 157/94 124/83 122/86 O2 Sat by Pulse 99 97 98 Oximetry 01/29/23 01/29/23 09:10 11:52 Temperature 99.2 F 99.4 F Pulse Rate 100 100 Respiratory 17 17 Rate Blood Pressure 127/79 140/97 O2 Sat by Pulse 99 98 Oximetry Medical Decision Making <Gal Islas - Last Filed: 01/28/23 15:30> - Lab Data Result diagrams: 02/04/23 06:39 02/04/23 06:39 - EKG Data -: EKG Interpreted by Me EKG shows normal: axis (Normal), intervals (Normal), QRS complexes (Normal), ST- T waves (Normal) Rate: tachycardia (Rate 106) Interpretation: other (Atrial fibrillation) <Sheng Nash - Last Filed: 02/10/23 08:41> - Medical Decision Making I performed the quick note portion of this chart signed Gal Islas PA-C (Gal Islas) Patient is 77-year-old man here for evaluation related to disorientation and confusion. Patient does have significant urinary tract infection with slight rise of creatinine versus baseline. Patient started on IV antibiotics will be admitted for further therapy. Patient had chest x-ray which I interpreted as being negative for acute infiltrate, pneumothorax, congestive heart failure Was pt. sent in by a medical professional or institution (CLARITA Burton, CHIEF DIETITIAN, urgent care, hospital, or jail...) When possible be specific @ -[No] Did you speak to anyone other than the patient for history (EMS, parent, family, police, friend...)? What history was obtained from this source @ -[No] Did you review nursing and triage notes (agree or disagree)? Why? @ -[I reviewed and agree with nursing and triage notes] Were old charts reviewed (outside hosp., previous admission, EMS record, old EKG, old radiological studies, urgent care reports/EKG's, jail records)? Report findings @ -[No old charts were reviewed] Differential Diagnosis (chest pain, altered mental status, abdominal pain women, abdominal pain men, vaginal bleeding, weakness, fever, dyspnea, syncope, headache, dizziness, GI bleed, back pain, seizure, CVA, palpatations, mental health, musculoskeletal)? @ -Differential Altered Mental Status: Hypoglycemia, DKA, hypercapnia, ETOH, overdose, CO poisoning, trauma, myxedema coma, HTN encephalopathy, infection, encephalitis, psychosis, intercranial hemorrhage, hepatic encephalopathy, meningitis, CVA, this is not meant to be an all-inclusive list EKG interpreted by me (3pts min.). @ -[As above] X-rays interpreted by me (1pt min.). @ -[I interpreted as above CT interpreted by me (1pt min.). @ -[None done] U/S interpreted by me (1pt. min.). @ -[None done] What testing was considered but not performed or refused? (CT, X-rays, U/S, labs)? Why? @ -[None] What meds were considered but not given or refused? Why? @ -[None] Did you discuss the management of the patient with other professionals ( professionals i.e. , PA, CHIEF DIETITIAN, lab, RT, psych nurse, social insurance specialist, supervisor typesetting, teacher, juvenile justice officer, supervisor case loading)? Give summary @ -[No] Was smoking cessation discussed for >3mins.? @ -[No] Was critical care preformed (if so, how long)? @ -[No] Were there social determinants of health that impacted care today? How? (Homelessness, low income, unemployed, alcoholism, drug addiction, t ransportation, low edu. Level, literacy, decrease access to med. care, usp, rehab)? @ -[No] Was there de-escalation of care discussed even if they declined (Discuss DNR or withdrawal of care, Hospice)? DNR status @ -[No] What co-morbidities impacted this encounter? (DM, HTN, Smoking, COPD, CAD, Cancer, CVA, ARF, Chemo, Hep., AIDS, mental health diagnosis, sleep apnea, morbid obesity)? @ -[None] Was patient admitted / discharged? Hospital course, mention meds given and route, prescriptions, significant lab abnormalities, going to OR and other pertinent info. @ -[See above Undiagnosed new problem with uncertain prognosis? @ -[No] Drug Therapy requiring intensive monitoring for toxicity (Heparin, Nitro, Insulin, Cardizem)? @ -[No] Were any procedures done? @ -[No] Diagnosis/symptom? @ -[Acute altered mental status Acute urinary tract infection Acute kidney injury Acute, or Chronic, or Acute on Chronic? @ -[Acute Uncomplicated (without systemic symptoms) or Complicated (systemic symptoms)? @ -[Complicated by delirium Side effects of treatment? @ -[No] Exacerbation, Progression, or Severe Exacerbation? @ -[No] Poses a threat to life or bodily function? How? (Chest pain, [place], GA, pneumonia, PE, COPD, DKA, ARF, appy, cholecystitis, CVA, Diverticulitis, Homicidal, Suicidal, threat to staff... and all critical care pts) @ -[No] (Sheng Nash) - Lab Data Lab Results 01/28/23 01/28/23 01/28/23 Range/Units 16:53 16:53 19:09 WBC 6.9 (3.8-10.6) k/uL RBC 4.25 L (4.30-5.90) m/uL Hgb 14.2 (13.0-17.5) gm/dL Hct 42.3 (39.0-53.0) % MCV 99.4 (80.0-100.0) fL MCH 33.4 (25.0-35.0) pg MCHC 33.6 (31.0-37.0) g/dL RDW 11.9 (11.5-15.5) % Plt Count 224 (150-450) k/uL MPV 8.3 Immature Gran % (Auto) % Absolute Nucleated RBC % Neutrophils % 84 % Lymphocytes % 5 % Monocytes % 9 % Eosinophils % 0 % Basophils % 1 % Immature Gran # X 10*3/uL Neutrophils # 5.7 (1.3-7.7) k/uL Lymphocytes # 0.4 L (1.0-4.8) k/uL Monocytes # 0.6 (0-1.0) k/uL Eosinophils # 0.0 (0-0.7) k/uL Basophils # 0.0 (0-0.2) k/uL NRBC/100 WBC Diff (0.00-0.01) X 10*3/uL Sodium 133 L (137-145) mmol/L Potassium 4.6 (3.5-5.1) mmol/L Chloride 96 L (98-107) mmol/L Carbon Dioxide 22 (22-30) mmol/L Anion Gap 15 mmol/L BUN 24 H (9-20) mg/dL Creatinine 1.43 H (0.66-1.25) mg/dL Est GFR (CKD-EPI) (>=60) Est GFR (CKD-EPI)AfAm 54 (>60 ml/min/1.73 sqM) Est GFR (CKD-EPI)NonAf 47 (>60 ml/min/1.73 sqM) BUN/Creatinine Ratio (12.00-20.00) Ratio Glucose 115 H (74-99) mg/dL Plasma Lactic Acid Neptali 1.4 (0.7-2.0) mmol/L Calcium 9.8 (8.4-10.2) mg/dL Magnesium 1.7 (1.6-2.3) mg/dL Total Bilirubin 0.9 (0.2-1.3) mg/dL AST 30 (17-59) U/L ALT 24 (4-49) U/L Alkaline Phosphatase 60 (38-126) U/L Ammonia <9 (<30) umol/L C-Reactive Protein (0.00-0.80) mg/dL Total Protein 8.0 (6.3-8.2) g/dL Albumin 4.6 (3.5-5.0) g/dL Globulin (1.6-3.3) d/dL Albumin/Globulin Ratio (1.60-3.17) Ratio Vitamin B12 (200.0-944.0) pg/mL RBC Folate (280 - 791) ng/mL Procalcitonin (0.02-0.09) ng/mL TSH (0.465-4.680) mIU/L Urine Color Urine Appearance (Clear) Urine pH (5.0-8.0) Ur Specific [place] (1.001-1.035) Urine Protein (Negative) Urine Glucose (UA) (Negative) Urine Ketones (Negative) Urine Blood (Negative) Urine Nitrite (Negative) Urine Bilirubin (Negative) Urine Urobilinogen (<2.0) mg/dL Ur Leukocyte Esterase (Negative) Urine RBC (0-5) /hpf Urine WBC (0-5) /hpf Ur Squamous Epith Cells (0-4) /hpf Urine Mucus (None) /hpf 01/28/23 01/29/23 01/29/23 Range/Units 19:41 09:25 09:25 WBC (3.8-10.6) k/uL RBC (4.30-5.90) m/uL Hgb (13.0-17.5) gm/dL Hct (39.0-53.0) % MCV (80.0-100.0) fL MCH (25.0-35.0) pg MCHC (31.0-37.0) g/dL RDW (11.5-15.5) % Plt Count (150-450) k/uL MPV Immature Gran % (Auto) % Absolute Nucleated RBC % Neutrophils % % Lymphocytes % % Monocytes % % Eosinophils % % Basophils % % Immature Gran # X 10*3/uL Neutrophils # (1.3-7.7) k/uL Lymphocytes # (1.0-4.8) k/uL Monocytes # (0-1.0) k/uL Eosinophils # (0-0.7) k/uL Basophils # (0-0.2) k/uL NRBC/100 WBC Diff (0.00-0.01) X 10*3/uL Sodium (137-145) mmol/L Potassium (3.5-5.1) mmol/L Chloride (98-107) mmol/L Carbon Dioxide (22-30) mmol/L Anion Gap mmol/L BUN (9-20) mg/dL Creatinine (0.66-1.25) mg/dL Est GFR (CKD-EPI) (>=60) Est GFR (CKD-EPI)AfAm (>60 ml/min/1.73 sqM) Est GFR (CKD-EPI)NonAf (>60 ml/min/1.73 sqM) BUN/Creatinine Ratio (12.00-20.00) Ratio Glucose (74-99) mg/dL Plasma Lactic Acid Neptali (0.7-2.0) mmol/L Calcium (8.4-10.2) mg/dL Magnesium (1.6-2.3) mg/dL Total Bilirubin (0.2-1.3) mg/dL AST (17-59) U/L ALT (4-49) U/L Alkaline Phosphatase (38-126) U/L Ammonia (<30) umol/L C-Reactive Protein (0.00-0.80) mg/dL Total Protein (6.3-8.2) g/dL Albumin (3.5-5.0) g/dL Globulin (1.6-3.3) d/dL Albumin/Globulin Ratio (1.60-3.17) Ratio Vitamin B12 2514.0 H (200.0-944.0) pg/mL RBC Folate 693 (280 - 791) ng/mL Procalcitonin (0.02-0.09) ng/mL TSH 0.842 (0.465-4.680) mIU/L Urine Color Colorless Urine Appearance Cloudy (Clear) Urine pH 5.5 (5.0-8.0) Ur Specific [place] 1.012 (1.001-1.035) Urine Protein Negative (Negative) Urine Glucose (UA) Negative (Negative) Urine Ketones Negative (Negative) Urine Blood Negative (Negative) Urine Nitrite Negative (Negative) Urine Bilirubin Negative (Negative) Urine Urobilinogen <2.0 (<2.0) mg/dL Ur Leukocyte Esterase Large H (Negative) Urine RBC 4 (0-5) /hpf Urine WBC 130 H (0-5) /hpf Ur Squamous Epith Cells <1 (0-4) /hpf Urine Mucus Rare H (None) /hpf 01/30/23 01/30/23 01/30/23 Range/Units 05:34 05:34 05:34 WBC 5.03 (3.8-10.6) k/uL RBC 4.16 L (4.30-5.90) m/uL Hgb 13.7 (13.0-17.5) gm/dL Hct 40.4 (39.0-53.0) % MCV 97.1 H (80.0-100.0) fL MCH 32.9 H (25.0-35.0) pg MCHC 33.9 (31.0-37.0) g/dL RDW 11.8 (11.5-15.5) % Plt Count 175 (150-450) k/uL MPV 12.0 Immature Gran % (Auto) 0.60 % Absolute Nucleated RBC 0 % Neutrophils % 68.8 % Lymphocytes % 10.9 % Monocytes % 19.1 % Eosinophils % 0 % Basophils % 0.6 % Immature Gran # 0.03 X 10*3/uL Neutrophils # 3.46 (1.3-7.7) k/uL Lymphocytes # 0.55 L (1.0-4.8) k/uL Monocytes # 0.96 (0-1.0) k/uL Eosinophils # 0 L (0-0.7) k/uL Basophils # 0.03 (0-0.2) k/uL NRBC/100 WBC Diff 0 (0.00-0.01) X 10*3/uL Sodium 133 L (137-145) mmol/L Potassium 4.6 (3.5-5.1) mmol/L Chloride 97 (98-107) mmol/L Carbon Dioxide 21.9 (22-30) mmol/L Anion Gap 14.10 H mmol/L BUN 24.1 (9-20) mg/dL Creatinine 1.6 H (0.66-1.25) mg/dL Est GFR (CKD-EPI) 44 L (>=60) Est GFR (CKD-EPI)AfAm (>60 ml/min/1.73 sqM) Est GFR (CKD-EPI)NonAf (>60 ml/min/1.73 sqM) BUN/Creatinine Ratio 15.06 (12.00-20.00) Ratio Glucose 91 (74-99) mg/dL Plasma Lactic Acid Neptali (0.7-2.0) mmol/L Calcium 8.8 (8.4-10.2) mg/dL Magnesium (1.6-2.3) mg/dL Total Bilirubin 0.3 (0.2-1.3) mg/dL AST 52 H (17-59) U/L ALT 24 (4-49) U/L Alkaline Phosphatase 53 (38-126) U/L Ammonia (<30) umol/L C-Reactive Protein 3.30 H (0.00-0.80) mg/dL Total Protein 6.6 (6.3-8.2) g/dL Albumin 3.9 (3.5-5.0) g/dL Globulin 2.7 (1.6-3.3) d/dL Albumin/Globulin Ratio 1.44 L (1.60-3.17) Ratio Vitamin B12 (200.0-944.0) pg/mL RBC Folate (280 - 791) ng/mL Procalcitonin 0.07 (0.02-0.09) ng/mL TSH (0.465-4.680) mIU/L Urine Color Urine Appearance (Clear) Urine pH (5.0-8.0) Ur Specific [place] (1.001-1.035) Urine Protein (Negative) Urine Glucose (UA) (Negative) Urine Ketones (Negative) Urine Blood (Negative) Urine Nitrite (Negative) Urine Bilirubin (Negative) Urine Urobilinogen (<2.0) mg/dL Ur Leukocyte Esterase (Negative) Urine RBC (0-5) /hpf Urine WBC (0-5) /hpf Ur Squamous Epith Cells (0-4) /hpf Urine Mucus (None) /hpf 02/01/23 02/01/23 Range/Units 05:17 05:17 WBC 5.91 (3.8-10.6) k/uL RBC 4.43 (4.30-5.90) m/uL Hgb 14.4 (13.0-17.5) gm/dL Hct 43.1 (39.0-53.0) % MCV 97.3 H (80.0-100.0) fL MCH 32.5 H (25.0-35.0) pg MCHC 33.4 (31.0-37.0) g/dL RDW 11.6 (11.5-15.5) % Plt Count 143 (150-450) k/uL MPV 12.6 H Immature Gran % (Auto) % Absolute Nucleated RBC 0 % Neutrophils % % Lymphocytes % % Monocytes % % Eosinophils % % Basophils % % Immature Gran # X 10*3/uL Neutrophils # (1.3-7.7) k/uL Lymphocytes # (1.0-4.8) k/uL Monocytes # (0-1.0) k/uL Eosinophils # (0-0.7) k/uL Basophils # (0-0.2) k/uL NRBC/100 WBC Diff 0 (0.00-0.01) X 10*3/uL Sodium 136 (137-145) mmol/L Potassium 4.5 (3.5-5.1) mmol/L Chloride 98 (98-107) mmol/L Carbon Dioxide 26.0 (22-30) mmol/L Anion Gap 12.00 mmol/L BUN 27.8 H (9-20) mg/dL Creatinine 1.7 H (0.66-1.25) mg/dL Est GFR (CKD-EPI) 41 L (>=60) Est GFR (CKD-EPI)AfAm (>60 ml/min/1.73 sqM) Est GFR (CKD-EPI)NonAf (>60 ml/min/1.73 sqM) BUN/Creatinine Ratio 16.35 (12.00-20.00) Ratio Glucose 90 (74-99) mg/dL Plasma Lactic Acid Neptali (0.7-2.0) mmol/L Calcium 9.0 (8.4-10.2) mg/dL Magnesium (1.6-2.3) mg/dL Total Bilirubin 0.4 (0.2-1.3) mg/dL AST 53 H (17-59) U/L ALT 35 (4-49) U/L Alkaline Phosphatase 55 (38-126) U/L Ammonia (<30) umol/L C-Reactive Protein (0.00-0.80) mg/dL Total Protein 6.2 (6.3-8.2) g/dL Albumin 3.8 (3.5-5.0) g/dL Globulin 2.4 (1.6-3.3) d/dL Albumin/Globulin Ratio 1.58 L (1.60-3.17) Ratio Vitamin B12 (200.0-944.0) pg/mL RBC Folate (280 - 791) ng/mL Procalcitonin (0.02-0.09) ng/mL TSH (0.465-4.680) mIU/L Urine Color Urine Appearance (Clear) Urine pH (5.0-8.0) Ur Specific [place] (1.001-1.035) Urine Protein (Negative) Urine Glucose (UA) (Negative) Urine Ketones (Negative) Urine Blood (Negative) Urine Nitrite (Negative) Urine Bilirubin (Negative) Urine Urobilinogen (<2.0) mg/dL Ur Leukocyte Esterase (Negative) Urine RBC (0-5) /hpf Urine WBC (0-5) /hpf Ur Squamous Epith Cells (0-4) /hpf Urine Mucus (None) /hpf Disposition <Gal Islas - Last Filed: 01/28/23 15:30> Is patient prescribed a controlled substance at d/c from ED?: No <Sheng Nash - Last Filed: 02/10/23 08:41> Clinical Impression: UTI (urinary tract infection), Altered mental status, JUAN (acute kidney injury) Disposition: ADMITTED IP TO THIS HOSP Condition: Good
[2023-01-28 17:10] LABS: Basophils % (A) 1 %; Eosinophils % (A) 0 %; HCT 42.3 % (39.0-53.0); HGB 14.2 gm/dL (13.0-17.5); Lymphocytes # (A) 0.4 k/uL (1.0-4.8); Lymphocytes % (A) 5 %; MCH 33.4 pg (25.0-35.0); MCHC 33.6 g/dL (31.0-37.0); MCV 99.4 fL (80.0-100.0); Mean Platelet Volume 8.3; Monocytes # (A) 0.6 k/uL (0-1.0); Monocytes % (A) 9 %; Neutrophils # (A) 5.7 k/uL (1.3-7.7); Neutrophils % (A) 84 %; Platelet Count 224 k/uL (150-450); RBC 4.25 m/uL (4.30-5.90); RDW 11.9 % (11.5-15.5); WBC 6.9 k/uL (3.8-10.6)
[2023-01-28 17:35] LABS: ALT 24 U/L (4-49); AST 30 U/L (17-59); African American GFR (CKD) 54 (>60 ml/min/1.73 sqM); Albumin 4.6 g/dL (3.5-5.0); Alkaline Phosphatase 60 U/L (38-126); Anion Gap 15 mmol/L; Blood Urea Nitrogen 24 mg/dL (9-20); Calcium 9.8 mg/dL (8.4-10.2); Carbon Dioxide 22 mmol/L (22-30); Chloride 96 mmol/L (98-107); Glucose 115 mg/dL (74-99); Magnesium 1.7 mg/dL (1.6-2.3); Non-African American GFR(CKD) 47 (>60 ml/min/1.73 sqM); Potassium 4.6 mmol/L (3.5-5.1); Sodium 133 mmol/L (137-145); Total Bilirubin 0.9 mg/dL (0.2-1.3)
--- NOTE | 2023-01-28 19:46 | XR ---
EXAMINATION TYPE: XR chest 2V DATE OF EXAM: 01/28/2023 7:27 PM CLINICAL INDICATION:Male, 77 years old with history of altered mental status; [facility] COMPARISON: 01/12/2023 11/13/2022 TECHNIQUE: XR chest 2V Frontal and lateral views of the chest. FINDINGS: Lungs/Pleura: There is flattening of the diaphragm with increased lucency of the lungs. No evidence o f pneumothorax, pleural effusion or focal consolidation. Stable left lower lobe pulmonary nodule. Pulmonary vascularity: Unremarkable. Heart/mediastinum: Cardiomediastinal silhouette is unremarkable. Musculoskeletal: No acute osseous pathology. IMPRESSION: 1. No acute cardiopulmonary disease/process. 2. Stable left lower lobe calcified granuloma. 3. COPD changes.
[2023-01-28 20:07] LABS: Appearance,Urine Cloudy (Clear); Bilirubin,Urine Negative (Negative); Blood,Urine Negative (Negative); Color,Urine Colorless; Glucose,Urine (UA) Negative (Negative); Ketones,Urine Negative (Negative); Leukocyte Esterase,Urine Large (Negative); Mucus,Urine Rare /hpf; Nitrite,Urine Negative (Negative); PH, Urine 5.5 (5.0-8.0); Protein,Urine Negative (Negative); RBC,Urine 4 /hpf (0-5); Specific Gravity,Urine 1.012 (1.001-1.035); Squamous Epithelial Cell,Urine <1 /hpf (0-4); Urobilinogen,Urine <2.0 mg/dL (<2.0); WBC,Urine 130 /hpf (0-5)
[2023-01-28 20:31] LABS: Lactic Acid, Venous 1.4 mmol/L (0.7-2.0)
[2023-01-28] MEDS ORDERED: LEVOFLOXACIN 750 MG TAB PO STA (20:34)
[2023-01-28] MEDS ORDERED: NALOXONE 0.4 MG/ML 1 ML VIAL IV PRN (22:22)
[2023-01-28] MEDS ORDERED: ONDANSETRON 4 MG/2 ML VIAL IVP PRN (22:22)
[2023-01-28] MEDS ORDERED: MAG HYDROX/AL HYDROX/SIMETH 30 ML CUP PO PRN (22:22)
[2023-01-28] MEDS ORDERED: ACETAMINOPHEN TAB 325 MG TAB PO PRN (22:22)
[2023-01-28] MEDS: SODIUM CHLORIDE 0.9% 1,000 ML IV SCH (22:44)
[2023-01-29] MEDS: SODIUM CHLORIDE 0.9% 1,000 ML IV SCH ×3 (06:24→22:03)
[2023-01-29] MEDS ORDERED: FAMOTIDINE 20 MG TAB PO SCH (09:00)
[2023-01-29] MEDS: APIXABAN 5 MG TAB PO SCH ×2 (09:39→20:30)
--- NOTE | 2023-01-29 10:21 | CT ---
EXAMINATION TYPE: CT brain wo con DATE OF EXAM: 01/29/2023 COMPARISON: 01/13/2023 HISTORY: Confusion. Pt was here 2 weeks ago for confusion and UTI, antibiotics are done but patient s till confused CT DLP: 1114.[address] of the brain was performed. The ventricles, basal cisterns and sulci overlying the cerebral convexities demonstrate mild enlargem ent. There is no evidence for intracranial hemorrhage or sulcal effacement. There is decreased attenuation about the periventricular white matter and deep white matter of both c erebral hemispheres, compatible with chronic small vessel ischemia. Differential diagnosis does inclu de demyelination. No mass effects are seen.No midline shift. Osseous calvarium is intact. If symptoms persist consider MRI. IMPRESSION: 1. Age related atrophic and chronic small vessel ischemic change without acute intracranial process s een at this time.
--- NOTE | 2023-01-29 13:10 | P.HPIM ---
History of Present Illness H&P Date: 01/29/23 History of present illness; patient is a 77-year-old gentleman with past medical history significant for atrial fibrillation, hypertension, hyperlipidemia who was brought to the ER for increasing confusion and fatigue. Patient had been recently seen in the hospital for similar complaints and has been evaluated by neurology. Patient last admission was beginning of this month at which time he was diagnosed with UTI was discharged on Ceftin. Family has noted the patient is more fatigued and confused. No complain of fever or chills at home. No complain of Chest pain or shortness of breath. Denies any nausea or vomiting. Denies any abdominal pain. There is no complain of recent fall. Because of increasing fatigue and confusion, patient was brought to the ER Initial lab work done in the ER showed WBC 6.9, hemoglobin 14.2, platelet count 224, sodium 133, potassium 4.6, BUN 24, creatinine 1.43, AST 30, ALT 24 UA done showed large amount of leukocyte esterase, wbc 130, Chest x-ray done in the ER showed no acute cardiopulmonary process Patient admitted to medicine service REVIEW OF SYSTEMS: CONSTITUTIONAL: No fever, complaining of lethargy and weakness HEENT: No recent visual problems or hearing problems. Denied any sore throat. CARDIOVASCULAR: No chest pain, orthopnea, PND, no palpitations, no syncope. PULMONARY: No shortness of breath, no cough, no hemoptysis. GASTROINTESTINAL: No diarrhea, no nausea, no vomiting, no abdominal pain. NEUROLOGICAL: No headaches, no weakness, no numbness. HEMATOLOGICAL: Denies any bleeding or petechiae. GENITOURINARY: Denies any burning micturition, frequency, or urgency. MUSCULOSKELETAL/RHEUMATOLOGICAL: Denies any joint pain, swelling, or any muscle pain. ENDOCRINE: Denies any polyuria or polydipsia. The rest of the 14-point review of systems is negative. PHYSICAL EXAMINATION: GENERAL: The patient is alert and oriented x 2-3, not in any acute distress. Well developed, well nourished. HEENT: Pupils are round and equally reacting to light. EOMI. No scleral icterus. No conjunctival pallor. Normocephalic, atraumatic. No pharyngeal erythema. No thyromegaly. CARDIOVASCULAR: S1 and S2 present. No murmurs, rubs, or gallops. PULMONARY: Chest is clear to auscultation, no wheezing or crackles. ABDOMEN: Soft, nontender, nondistended, normoactive bowel sounds. No palpable organomegaly. MUSCULOSKELETAL: No joint swelling or deformity. EXTREMITIES: No cyanosis, clubbing, or pedal edema. NEUROLOGICAL: Gross neurological examination did not reveal any focal deficits. SKIN: No rashes. Assessment and plan Acute infectious encephalopathy UTI Chronic atrial fibrillation Hypertension Hyperlipidemia Monitor vital signs Monitor CBC Monitor CMP Continue IV fluids Follow-up on blood cultures Follow-up on urine cultures Continue IV Levaquin Consult ID Resume home meds Labs and medication were reviewed.. Continue same treatment. Continue with symptomatic treatment. Resume home medication. Monitor labs and vitals. DVT and GI prophylaxis. Further recommendations as per clinical course of the patient Dictation was produced using [employer] dictation software. please excuse any grammatical, word or spelling errors. Past Medical History Past Medical History: No Reported History History of Any Multi-Drug Resistant Organisms: None Reported Past Surgical History: No Surgical Hx Reported Past Psychological History: No Psychological Hx Reported Smoking Status: Never smoker Past Alcohol Use History: None Reported Past Drug Use History: None Reported Medications and Allergies Home Medications Medication Instructions Recorded Confirmed Type Atorvastatin [Lipitor] 10 mg PO HS 11/13/22 01/28/23 History Cholecalciferol [Vitamin D3 (25 25 mcg PO Q48H 11/13/22 01/28/23 History Mcg = 1000 Iu)] Prostate Plus Health Complex 1 tab PO DAILY 11/13/22 01/28/23 History Supplement Apixaban [Eliquis] 5 mg PO BID 30 Days #60 tab 11/16/22 01/28/23 Rx Cyanocobalamin [Vitamin B-12] 1,000 mcg PO DAILY tab 11/16/22 01/28/23 Rx Metoprolol Tartrate [Lopressor] 25 mg PO BID 30 Days #60 tab 11/16/22 01/28/23 Rx Tamsulosin [Flomax] 0.4 mg PO BID 01/12/23 01/28/23 History Ciprofloxacin HCl [Cipro] 500 mg PO Q12HR #14 tablet 01/28/23 Rx Allergies Allergy/AdvReac Type Severity Reaction Status Date / Time orange juice Allergy Rash/Hives Verified 01/29/23 09:13 tomato Allergy Rash/Hives Verified 01/29/23 09:14 Physical Exam Vitals: Vital Signs Temp Pulse Resp BP Pulse Ox 01/29/23 09:10 99.2 F 100 17 127/79 99 01/29/23 06:00 97.8 F 95 18 122/86 98 01/28/23 19:42 99.0 F 97 18 124/83 97 01/28/23 14:53 98.9 F 90 18 157/94 99 Results CBC & Chem 7: 01/28/23 16:53 01/28/23 16:53 Labs: Abnormal Lab Results - Last 24 Hours (Table) 01/28/23 01/28/23 01/28/23 Range/Units 16:53 16:53 19:41 RBC 4.25 L (4.30-5.90) m/uL Lymphocytes # 0.4 L (1.0-4.8) k/uL Sodium 133 L (137-145) mmol/L Chloride 96 L (98-107) mmol/L BUN 24 H (9-20) mg/dL Creatinine 1.43 H (0.66-1.25) mg/dL Glucose 115 H (74-99) mg/dL Ur Leukocyte Esterase Large H (Negative) Urine WBC 130 H (0-5) /hpf Urine Mucus Rare H (None) /hpf
[2023-01-29] MEDS: ATORVASTATIN 10 MG TAB PO SCH (20:30)
[2023-01-29] MEDS: METOPROLOL TARTRATE 25 MG TAB PO SCH (20:30)
[2023-01-29] MEDS: TAMSULOSIN 0.4 MG CAP.ER.24H PO SCH (20:30)
[2023-01-29] MEDS ORDERED: LEVOFLOXACIN 750MG-D5W PMX 750 MG in DEXTROSE/WATER 1 150ML.BAG IVPB SCH (21:00)
--- NOTE | 2023-01-29 23:15 | P.CONS ---
History of Present Illness - Reason for Consult Consult date: 01/29/23 UTI Requesting physician: Sarbjit Clay - Chief Complaint Weakness and mental status changes x one day - History of Present Illness Patient is a 77-year-old male with a past medical history significant for atrial fibrillation hypertension hyperlipidemia patient was brought into the ER yesterday afternoon for evaluation of weakness and mental status changes apparently the patient symptom has been going on for a day or 2 before the patient was brought into the hospital patient denies having any headache or URI symptoms denies having any chest pain shortness of breath or cough no nausea vomiting no abdominal pain or any diarrhea denies any difficulty urination or any burning patient who presented to the hospital did have a low-grade fever of 99 F patient was mildly tachycardic but not hypotensive or hypoxic did have a normal white count BUN/creatinine has been mildly elevated urine was positive with large leukocyte Estrace 130 WBC patient did have a chest x-ray that was negative for any acute cardiopulmonary disease CT of the brain was negative for any bleed patient was started on Levaquin concerning for UTI infectious disease was consulted for further management of antibiotic therapy Review of Systems Positive point and negatives has been mentioned in the HPI, complete review of systems was performed and all other systems are negative Past Medical History Past Medical History: No Reported History History of Any Multi-Drug Resistant Organisms: None Reported Past Surgical History: No Surgical Hx Reported Past Psychological History: No Psychological Hx Reported Smoking Status: Never smoker Past Alcohol Use History: None Reported Past Drug Use History: None Reported Medications and Allergies Home Medications Medication Instructions Recorded Confirmed Type Atorvastatin [Lipitor] 10 mg PO HS 11/13/22 01/28/23 History Cholecalciferol [Vitamin D3 (25 25 mcg PO Q48H 11/13/22 01/28/23 History Mcg = 1000 Iu)] Prostate Plus Health Complex 1 tab PO DAILY 11/13/22 01/28/23 History Supplement Apixaban [Eliquis] 5 mg PO BID 30 Days #60 tab 11/16/22 01/28/23 Rx Cyanocobalamin [Vitamin B-12] 1,000 mcg PO DAILY tab 11/16/22 01/28/23 Rx Metoprolol Tartrate [Lopressor] 25 mg PO BID 30 Days #60 tab 11/16/22 01/28/23 Rx Tamsulosin [Flomax] 0.4 mg PO BID 01/12/23 01/28/23 History Acetaminophen Tab [Tylenol] 650 mg PO Q6HR PRN tab 02/04/23 Rx Famotidine [Pepcid] 20 mg PO DAILY tab 02/04/23 Rx Mag Hydrox/Al Hydrox/Simeth 15 ml PO Q6HR PRN ml 02/04/23 Rx [Maalox] cefUROXime axetiL [Ceftin] 500 mg PO BID 10 Days #20 tab 02/04/23 Rx Allergies Allergy/AdvReac Type Severity Reaction Status Date / Time orange juice Allergy Rash/Hives Verified 01/29/23 09:13 tomato Allergy Rash/Hives Verified 01/29/23 09:14 Physical Exam Vitals: Vital Signs Temp Pulse Resp BP Pulse Ox 01/29/23 09:10 99.2 F 100 17 127/79 99 01/29/23 06:00 97.8 F 95 18 122/86 98 01/28/23 19:42 99.0 F 97 18 124/83 97 01/28/23 14:53 98.9 F 90 18 157/94 99 GENERAL DESCRIPTION: Elderly male lying in bed, no distress. No tachypnea or accessory muscle of respiration use. HEENT: Shows Pallor , no scleral icterus. Oral mucous membrane is dry. No phar yngeal erythema or thrush NECK: Trachea central, no thyromegaly. LUNGS: Unlabored breathing. Clear to auscultation anteriorly. No wheeze or crackle. HEART: S1, S2, regular rate and rhythm. No loud murmur ABDOMEN: Soft, no tenderness , guarding or rigidity, no organomegaly EXTREMITIES: No edema of feet. SKIN: No rash, no masses palpable. NEUROLOGICAL: The patient is awake, alert, oriented x3, mood and affect normal. Results CBC & Chem 7: 02/04/23 06:39 02/04/23 06:39 Labs: Abnormal Lab Results - Last 24 Hours (Table) 01/28/23 01/28/23 01/28/23 Range/Units 16:53 16:53 19:41 RBC 4.25 L (4.30-5.90) m/uL Lymphocytes # 0.4 L (1.0-4.8) k/uL Sodium 133 L (137-145) mmol/L Chloride 96 L (98-107) mmol/L BUN 24 H (9-20) mg/dL Creatinine 1.43 H (0.66-1.25) mg/dL Glucose 115 H (74-99) mg/dL Ur Leukocyte Esterase Large H (Negative) Urine WBC 130 H (0-5) /hpf Urine Mucus Rare H (None) /hpf Assessment and Plan (1) UTI (urinary tract infection) Status: Acute Code(s): N39.0 - URINARY TRACT INFECTION, SITE NOT SPECIFIED SNOMED Code(s): 49585981 Plan: 1patient presenting to the hospital with mental status changes weakness in this patient with a low-grade fever patient did have a positive UA and no other cl inical focus for infection patient chest was clear to auscultation abdomen is soft with no tenderness no evidence of any joint or lower extremity swelling or redness 2-discontinue Levaquin 3-start the patient Rocephin 2 g daily while waiting for the culture to finalize We will follow on clinical condition and cultures to further adjust medication if needed Thank you for this consultation we will follow the patient along with you Dictation was produced using [employer] dictation software. please excuse any grammatical, word or spelling errors. Time with Patient: Greater than 30
[2023-01-30] MEDS: SODIUM CHLORIDE 0.9% 1,000 ML IV SCH ×3 (06:21→21:06)
--- NOTE | 2023-01-30 08:32 | US ---
EXAMINATION TYPE: US abdomen complete DATE OF EXAM: 01/30/2023 COMPARISON: NONE CLINICAL INDICATION: Male, 77 years old with history of fever; fever TECHNIQUE: Multiple sonographic images of the abdomen are obtained. FINDINGS: EXAM MEASUREMENTS: Liver Length: 13.0 cm Gallbladder Wall: 0.2 cm CBD: 0.5 cm Spleen: 10.8 cm Right Kidney: 11.3 x 5.4 5.2 cm Left Kidney: 9.8 x 5.3 x 4.7 cm [employer] NOTES: technical limitations due to large amount of overlying bowel gas Pancreas: Obscured by bowel gas Liver: best seen intercostally Gallbladder: no evidence of stones Evidence for sonographic Gabriel's sign: no CBD: small segment visualized, appears wnl Spleen: limited evaluation Right Kidney: mild to moderate hydronephrosis Left Kidney: mild hydronephrosis Upper IVC: wnl Abd Aorta: appears wnl The liver is homogenous. The intrahepatic portion of the IVC and proximal abdominal aorta are within normal limits. There is no evidence of cholelithiasis. Common bile duct is unremarkable. The visu alized portions of the pancreas are homogenous. The spleen is unremarkable. IMPRESSION: 1. Bilateral hydronephrosis right greater than left.
[2023-01-30 08:59] LABS: Basophils # (A) 0.03 X 10*3/uL (0.00-0.10); Basophils % (A) 0.6 %; Eosinophils # (A) 0 X 10*3/uL (0.04-0.35); Eosinophils % (A) 0 %; HCT 40.4 % (39.6-50.0); HGB 13.7 d/dL (13.0-17.0); Lymphocytes # (A) 0.55 X 10*3/uL (0.90-5.00); Lymphocytes % (A) 10.9 %; MCH 32.9 pg (27.0-32.0); MCHC 33.9 d/dL (32.0-37.0); MCV 97.1 FL (80.0-97.0); Monocytes # (A) 0.96 X 10*3/uL (0.20-1.00); Monocytes % (A) 19.1 %; NRBC Per 100 WBC 0 X 10*3/uL (0.00-0.01); Neutrophils # (A) 3.46 X 10*3/uL (1.80-7.70); Neutrophils % (A) 68.8 %; Platelet Count 175 X 10*3/uL (140-440); RBC 4.16 X 10*6/uL (4.40-5.60); RDW 11.8 % (11.5-14.5); WBC 5.03 X 10*3/uL (4.50-10.00)
[2023-01-30 09:32] LABS: ALT 24 U/L (10-49); AST 52 U/L (14-35); Albumin 3.9 d/dL (3.8-4.9); Albumin/Globulin Ratio 1.44 Ratio (1.60-3.17); Alkaline Phosphatase 53 U/L (41-126); BUN/Creat Ratio 15.06 Ratio (12.00-20.00); Blood Urea Nitrogen 24.1 mg/dL (9.0-27.0); Calcium 8.8 mg/dL (8.7-10.3); Carbon Dioxide 21.9 mmol/L (21.6-31.8); Chloride 97 mmol/L (96-109); Globulin 2.7 d/dL (1.6-3.3); Glucose 91 mg/dL (70-110); Potassium 4.6 mmol/L (3.5-5.5); Sodium 133 mmol/L (135-145); Total Bilirubin 0.3 mg/dL (0.3-1.2); Total Protein 6.6 d/dL (6.2-8.2)
[2023-01-30] MEDS: APIXABAN 5 MG TAB PO SCH ×2 (10:19→21:04)
[2023-01-30] MEDS: CYANOCOBALAMIN 500 MCG TAB PO SCH (10:19)
[2023-01-30] MEDS: FAMOTIDINE 20 MG TAB PO SCH (10:20)
[2023-01-30] MEDS: TAMSULOSIN 0.4 MG CAP.ER.24H PO SCH ×2 (10:20→21:04)
[2023-01-30] MEDS: METOPROLOL TARTRATE 25 MG TAB PO SCH ×2 (10:20→21:04)
[2023-01-30] MEDS: CHOLECALCIFEROL 25 MCG (1000 IU) TABLET PO SCH (10:20)
--- NOTE | 2023-01-30 13:16 | P.PN ---
Subjective Progress Note Date: 01/30/23 patient is a 77-year-old gentleman with past medical history significant for atrial fibrillation, hypertension, hyperlipidemia who was brought to the ER for increasing confusion and fatigue. Patient had been recently seen in the hospital for similar complaints and has been evaluated by neurology. Patient last admission was beginning of this month at which time he was diagnosed with UTI was discharged on Ceftin. Family has noted the patient is more fatigued and confused. No complain of fever or chills at home. No complain of Chest pain or shortness of breath. Denies any nausea or vomiting. Denies any abdominal pain. There is no complain of recent fall. Because of increasing fatigue and confusion, patient was brought to the ER Initial lab work done in the ER showed WBC 6.9, hemoglobin 14.2, platelet count 224, sodium 133, potassium 4.6, BUN 24, creatinine 1.43, AST 30, ALT 24 UA done showed large amount of leukocyte esterase, wbc 130, Chest x-ray done in the ER showed no acute cardiopulmonary process Patient admitted to medicine service 01/30. Patient seen and examined. Patient is alert, answers questions appropriately. Patient is a fall risk, sitter in place REVIEW OF SYSTEMS: CONSTITUTIONAL: No fever, no malaise,. CARDIOVASCULAR: No chest pain, no palpitations, no syncope. PULMONARY: No shortness of breath, no cough, GASTROINTESTINAL: No diarrhea, no nausea, no vomiting, no abdominal pain. NEUROLOGICAL: No headaches, no weakness, PHYSICAL EXAMINATION: GENERAL: The patient is alert and oriented x3, not in any acute distress. Well developed, well nourished. HEENT: Pupils are round and equally reacting to light. EOMI. No scleral icterus. No conjunctival pallor. Normocephalic, atraumatic. No pharyngeal erythema. No thyromegaly. CARDIOVASCULAR: S1 and S2 present. No murmurs, rubs, or gallops. PULMONARY: Chest is clear to auscultation, no wheezing or crackles. ABDOMEN: Soft, nontender, nondistended, normoactive bowel sounds. No palpable organomegaly. MUSCULOSKELETAL: No joint swelling or deformity. EXTREMITIES: No cyanosis, clubbing, or pedal edema. NEUROLOGICAL: Gross neurological examination did not reveal any focal deficits. SKIN: No rashes. Assessment and plan Acute infectious encephalopathy UTI Chronic atrial fibrillation Hypertension Hyperlipidemia Monitor vital signs Monitor CBC Monitor CMP Continue IV fluids Follow-up on blood cultures Follow-up on urine cultures Continue IV Rocephin ID following PT and OT consulted Labs and medication were reviewed.. Continue same treatment. Continue with symptomatic treatment. Resume home medication. Monitor labs and vitals. DVT and GI prophylaxis. Further recommendations as per clinical course of the patient Dictation was produced using [employer] dictation software. please excuse any grammatical, word or spelling errors. Objective - Vital Signs Vital signs: Vital Signs Temp 99.1 F 01/30/23 07:35 Pulse 99 01/30/23 08:00 Resp 16 01/30/23 08:00 BP 102/68 01/30/23 07:35 Pulse Ox 96 01/30/23 07:35 FiO2 Intake & Output 01/29/23 01/30/23 01/30/23 18:59 06:59 18:59 Intake Total 236 118 Balance 236 118 Weight 69.4 kg Intake: Oral 236 118 Other: # Voids 2 4 4 # Bowel Movements 1 1 - Labs CBC & Chem 7: 01/30/23 05:34 01/30/23 05:34 Labs: Abnormal Lab Results - Last 24 Hours (Table) 01/29/23 01/30/23 01/30/23 Range/Units 09:25 05:34 05:34 RBC 4.16 L (4.40-5.60) X 10*6/uL MCV 97.1 H (80.0-97.0) FL MCH 32.9 H (27.0-32.0) pg Lymphocytes # 0.55 L (0.90-5.00) X 10*3/uL Eosinophils # 0 L (0.04-0.35) X 10*3/uL Sodium 133 L (135-145) mmol/L Anion Gap 14.10 H (4.00-12.00) mmol/L Creatinine 1.6 H (0.6-1.5) mg/dL Est GFR (CKD-EPI) 44 L (>=60) AST 52 H (14-35) U/L C-Reactive Protein 3.30 H (0.00-0.80) mg/dL Albumin/Globulin Ratio 1.44 L (1.60-3.17) Ratio Vitamin B12 2514.0 H (200.0-944.0) pg/mL Microbiology - Last 24 Hours (Table) 01/28/23 20:32 Urine Culture - Final Urine,Catheterized
--- NOTE | 2023-01-30 17:08 | P.PN ---
Subjective Progress Note Date: 01/30/23 Principal diagnosis: Urinary tract infection Patient is a 77-year-old male with a past medical history significant for atrial fibrillation hypertension hyperlipidemia patient was brought into the ER for evaluation of weakness and mental status changes, patient did have a positive UA concerning for symptomatic enteric infection. On today's evaluation that is01/30/2023, the patient remains to be afebrile the patient is breathing comfortably on room air without need for supplemental oxygen, the patient denies chest pain, shortness of breath or cough, patient denies nausea/vomiting , no diarrhea and no abdominal pain. Patient did have white count of 5.03, creatinine is 1.6, cultures pending Objective - Vital Signs Vital signs: Vital Signs Temp 99.1 F 01/30/23 07:35 Pulse 99 01/30/23 08:00 Resp 16 01/30/23 08:00 BP 102/68 01/30/23 07:35 Pulse Ox 96 01/30/23 07:35 FiO2 Intake & Output 01/29/23 01/30/23 01/30/23 18:59 06:59 18:59 Intake Total 236 118 Balance 236 118 Weight 69.4 kg Intake: Oral 236 118 Other: # Voids 2 4 4 # Bowel Movements 1 1 - Exam GENERAL DESCRIPTION: An elderly male lying in bed in no distress RESPIRATORY SYSTEM: Unlabored breathing , decreased breath sounds at bases HEART: S1 S2 regular rate and rhythm , ABDOMEN: Soft , no tenderness EXTREMITIES: No edema feet - Labs CBC & Chem 7: 01/30/23 05:34 01/30/23 05:34 Labs: Abnormal Lab Results - Last 24 Hours (Table) 01/29/23 01/30/23 01/30/23 Range/Units 09:25 05:34 05:34 RBC 4.16 L (4.40-5.60) X 10*6/uL MCV 97.1 H (80.0-97.0) FL MCH 32.9 H (27.0-32.0) pg Lymphocytes # 0.55 L (0.90-5.00) X 10*3/uL Eosinophils # 0 L (0.04-0.35) X 10*3/uL Sodium 133 L (135-145) mmol/L Anion Gap 14.10 H (4.00-12.00) mmol/L Creatinine 1.6 H (0.6-1.5) mg/dL Est GFR (CKD-EPI) 44 L (>=60) AST 52 H (14-35) U/L C-Reactive Protein 3.30 H (0.00-0.80) mg/dL Albumin/Globulin Ratio 1.44 L (1.60-3.17) Ratio Vitamin B12 2514.0 H (200.0-944.0) pg/mL Microbiology - Last 24 Hours (Table) 01/28/23 20:32 Urine Culture - Final Urine,Catheterized Assessment and Plan (1) UTI (urinary tract infection) Current Visit: Yes Status: Acute Code(s): N39.0 - URINARY TRACT INFECTION, SITE NOT SPECIFIED SNOMED Code(s): 10184994 Plan: 1patient presenting to the hospital with mental status changes weakness in this patient with a low-grade fever patient did have a positive UA and no other clinical focus for infection patient chest was clear to auscultation abdomen is soft with no tenderness no evidence of any joint or lower extremity swelling or redness 2Patient to continue with Rocephin 2 g daily while waiting for the culture to finalize Dictation was produced using [employer] dictation software. please excuse any grammatical, word or spelling errors. Time with Patient: Less than 30
[2023-01-30] MEDS: ATORVASTATIN 10 MG TAB PO SCH (21:04)
[2023-01-31] MEDS: SODIUM CHLORIDE 0.9% 1,000 ML IV SCH ×3 (05:54→20:54)
[2023-01-31] MEDS: APIXABAN 5 MG TAB PO SCH ×2 (08:52→20:53)
[2023-01-31] MEDS: CYANOCOBALAMIN 500 MCG TAB PO SCH (08:53)
[2023-01-31] MEDS: FAMOTIDINE 20 MG TAB PO SCH (08:53)
[2023-01-31] MEDS: TAMSULOSIN 0.4 MG CAP.ER.24H PO SCH ×2 (08:53→20:53)
[2023-01-31] MEDS: METOPROLOL TARTRATE 25 MG TAB PO SCH ×2 (08:53→20:53)
--- NOTE | 2023-01-31 12:19 | P.CRDCN ---
History of Present Illness Consult date: 01/31/23 History of present illness: HISTORY OF PRESENTING ILLNESS 77-year-old with Known to Dr Guillermo. PMH of HTN, dyslipidemia, and atrial fibrillation on rate control strategy with Eliquis and metoprolol. This was diagnosed in November 2022. During that admission there was also concern of possible TIA but his MRI was negative and the neurologist did not think it was a cerebrovascular accident. This time he presented to the hospital with concerns of urinary tract infection. She's been evaluated for possible prostate procedure and was being scheduled for an outpatient stress test as a part of his perioperative cardiac risk assessment. At this time, patient is hemodynamically stable with normotensive, rate controlled atrial fibrillation with no active signs of bleeding. He's ECG does not show any active signs of ischemia. He does not have clinical signs and symptoms of congestive heart failure. Echo from 12/03 normal LVEF no major valve pathology REVIEW OF SYSTEMS 14 point review of system is negative except what is mentioned above in HPI. PHYSICAL EXAMINATION Vital signs reviewed. Head: Normocephalic. Eyes: Sclerae nonicteric. Neck: Brisk carotid upstroke, no jugular venous distention. Lungs: Clear to auscultation. Heart: Regular rate and rhythm, S1-S2, no S3, no murmur or rub. Abdomen: Soft nontender, positive bowel sounds no organomegaly. Extremities: No edema, intact distal pulses. Neuro: Alert, oritented, no focal deficits ASSESSMENT Acute UTI Concerns of BPH awaiting urological procedure next line Persistent atrial fibrillation, [id number] score 4 Essential hypertension Perioperative cardiac risk assessment PLAN At this time patient is stable from cardiac vessel standpoint. Because he was scheduled for an outpatient nuclear stress test but now he is in the hospital, we will obtain a nuclear Lexiscan stress test while he is in the hospital. Atrial fibrillation is stable. Continue metoprolol and Eliquis. Hold Eliquis 24 hours prior to the urological procedure Other comorbidities management as per the primary team Past Medical History Past Medical History: No Reported History History of Any Multi-Drug Resistant Organisms: None Reported Past Surgical History: No Surgical Hx Reported Past Anesthesia/Blood Transfusion Reactions: No Reported Reaction Past Psychological History: No Psychological Hx Reported Smoking Status: Never smoker Past Alcohol Use History: None Reported Past Drug Use History: None Reported Medications and Allergies Home Medications Medication Instructions Recorded Confirmed Type Atorvastatin [Lipitor] 10 mg PO HS 11/13/22 01/28/23 History Cholecalciferol [Vitamin D3 (25 25 mcg PO Q48H 11/13/22 01/28/23 History Mcg = 1000 Iu)] Prostate Plus Health Complex 1 tab PO DAILY 11/13/22 01/28/23 History Supplement Apixaban [Eliquis] 5 mg PO BID 30 Days #60 tab 11/16/22 01/28/23 Rx Cyanocobalamin [Vitamin B-12] 1,000 mcg PO DAILY tab 11/16/22 01/28/23 Rx Metoprolol Tartrate [Lopressor] 25 mg PO BID 30 Days #60 tab 11/16/22 01/28/23 Rx Tamsulosin [Flomax] 0.4 mg PO BID 01/12/23 01/28/23 History Ciprofloxacin HCl [Cipro] 500 mg PO Q12HR #14 tablet 01/28/23 Rx Allergies Allergy/AdvReac Type Severity Reaction Status Date / Time orange juice Allergy Rash/Hives Verified 01/29/23 09:13 tomato Allergy Rash/Hives Verified 01/29/23 09:14 Physical Exam Vitals: Vital Signs Temp Pulse Resp BP Pulse Ox 01/31/23 08:00 93 15 01/31/23 07:00 98.1 F 93 15 106/70 96 01/31/23 02:00 99.0 F 98 16 101/67 96 01/30/23 20:00 98.3 F 76 16 95/64 95 01/30/23 15:00 98.5 F 75 14 96/63 96 01/30/23 14:00 75 14 Intake and Output 01/30/23 01/31/23 01/31/23 22:59 06:59 14:59 Other: # Voids 1 1 Results 01/30/23 05:34 01/30/23 05:34 Current Medications Generic Name Dose Route Start Last Admin Trade Name Freq PRN Reason Stop Dose Admin Acetaminophen 650 mg 01/28/23 22:22 01/29/23 15:22 Acetaminophen Tab 325 Mg Tab PO 650 mg Q6HR PRN Administration Mild Pain or Fever > 100.5 Al Hydroxide/Mg Hydroxide 15 ml 01/28/23 22:22 Mag Hydrox/Al Hydrox/Simeth 30 Ml Cup PO Q6HR PRN Indigestion Apixaban 5 mg 01/29/23 09:30 01/31/23 08:52 Apixaban 5 Mg Tab PO 5 mg BID DIANE Administration Protocol Atorvastatin Calcium 10 mg 01/29/23 21:00 01/30/23 21:04 Atorvastatin 10 Mg Tab PO 10 mg HS DIANE Administration Cholecalciferol 25 mcg 01/30/23 09:00 01/30/23 10:20 Cholecalciferol 25 Mcg (1000 Iu) Tablet PO 25 mcg Q48H DIANE Administration Cyanocobalamin 1,000 mcg 01/30/23 09:00 01/31/23 08:53 Cyanocobalamin 500 Mcg Tab PO 1,000 mcg DAILY DIANE Administration Famotidine 20 mg 01/30/23 09:00 01/31/23 08:53 Famotidine 20 Mg Tab PO 20 mg DAILY DIANE Administration Sodium Chloride 1,000 mls @ 130 mls/hr 01/28/23 22:30 01/31/23 05:54 Saline 0.9% IV Not Given .Q7H42M DIANE Ceftriaxone Sodium 2 gm/ 50 mls @ 100 mls/hr 01/30/23 00:00 01/30/23 23:45 Sodium Chloride IVPB 100 mls/hr Q24H DIANE Administration Protocol Metoprolol Tartrate 25 mg 01/29/23 21:00 01/31/23 08:53 Metoprolol Tartrate 25 Mg Tab PO 25 mg BID DIANE Administration Naloxone HCl 0.2 mg 01/28/23 22:22 Naloxone 0.4 Mg/Ml 1 Ml Vial IV Q2M PRN Opioid Reversal Ondansetron HCl 4 mg 01/28/23 22:22 Ondansetron 4 Mg/2 Ml Vial IVP Q8HR PRN Nausea And Vomiting Tamsulosin HCl 0.4 mg 01/29/23 21:00 01/31/23 08:53 Tamsulosin 0.4 Mg Cap.Er.24h PO 0.4 mg BID DIANE Administration Intake and Output 01/30/23 01/31/23 01/31/23 22:59 06:59 14:59 Other: # Voids 1 1 01/30/23 05:34 01/30/23 05:34
--- NOTE | 2023-01-31 12:56 | P.PN ---
Subjective Progress Note Date: 01/31/23 Principal diagnosis: Urinary tract infection Patient is a 77-year-old male with a past medical history significant for atrial fibrillation hypertension hyperlipidemia patient was brought into the ER for evaluation of weakness and mental status changes, patient did have a positive UA concerning for symptomatic enteric infection. On today's evaluation that is 01/31/2023, the patient denies any fever or any chills, the patient is breathing comfortably on room air , the patient denies chest pain, shortness of breath and no significant cough, patient denies abdominal pain, no nausea/vomiting or diarrhea Patient did have white count of 5.03, creatinine is 1.6 as of yesterday, cultures so far negative, ultrasound did show evidence of bilateral hydronephrosis the right greater than the left Objective - Vital Signs Vital signs: Vital Signs Temp 98.1 F 01/31/23 07:00 Pulse 93 01/31/23 08:00 Resp 15 01/31/23 08:00 BP 106/70 01/31/23 07:00 Pulse Ox 96 01/31/23 07:00 FiO2 Intake & Output 01/30/23 01/31/23 01/31/23 18:59 06:59 18:59 Intake Total 118 Balance 118 Intake: Oral 118 Other: # Voids 3 1 # Bowel Movements 1 - Exam GENERAL DESCRIPTION: An elderly male lying in bed in no distress RESPIRATORY SYSTEM: Unlabored breathing , decreased breath sounds at bases HEART: S1 S2 regular rate and rhythm , ABDOMEN: Soft , no tenderness EXTREMITIES: No edema feet - Labs CBC & Chem 7: 01/30/23 05:34 01/30/23 05:34 Labs: Microbiology - Last 24 Hours (Table) 01/29/23 09:31 Blood Culture - Preliminary Blood Assessment and Plan (1) UTI (urinary tract infection) Current Visit: Yes Status: Acute Code(s): N39.0 - URINARY TRACT INFECTION, SITE NOT SPECIFIED SNOMED Code(s): 05053458 Plan: 1patient presenting to the hospital with mental status changes weakness in this patient with a low-grade fever patient did have a positive UA and no other cli nical focus for infection patient chest was clear to auscultation abdomen is soft with no tenderness no evidence of any joint or lower extremity swelling or redness 2Patient did have abnormal ultrasound with evidence of bilateral hydronephrosis we will consult urology, patient to continue with Rocephin 2 g daily and monitor clinical course closely Dictation was produced using [employer] dictation software. please excuse any grammatical, word or spelling errors. Time with Patient: Less than 30
--- NOTE | 2023-01-31 13:00 | P.PN ---
Subjective Progress Note Date: 01/31/23 patient is a 77-year-old gentleman with past medical history significant for atrial fibrillation, hypertension, hyperlipidemia who was brought to the ER for increasing confusion and fatigue. Patient had been recently seen in the hospital for similar complaints and has been evaluated by neurology. Patient last admission was beginning of this month at which time he was diagnosed with UTI was discharged on Ceftin. Family has noted the patient is more fatigued and confused. No complain of fever or chills at home. No complain of Chest pain or shortness of breath. Denies any nausea or vomiting. Denies any abdominal pain. There is no complain of recent fall. Because of increasing fatigue and confusion, patient was brought to the ER Initial lab work done in the ER showed WBC 6.9, hemoglobin 14.2, platelet count 224, sodium 133, potassium 4.6, BUN 24, creatinine 1.43, AST 30, ALT 24 UA done showed large amount of leukocyte esterase, wbc 130, Chest x-ray done in the ER showed no acute cardiopulmonary process Patient admitted to medicine service 01/30. Patient seen and examined. Patient is alert, answers questions appropriately. Patient is a fall risk, sitter in place 01/31. Patient seen and examined. at the bedside, still thinks patient is weak. Denies any chest pain or shortness of breath REVIEW OF SYSTEMS: CONSTITUTIONAL: No fever, no malaise,. CARDIOVASCULAR: No chest pain, no palpitations, no syncope. PULMONARY: No shortness of breath, no cough, GASTROINTESTINAL: No diarrhea, no nausea, no vomiting, no abdominal pain. NEUROLOGICAL: No headaches, no weakness, PHYSICAL EXAMINATION: GENERAL: The patient is alert and oriented x3, not in any acute distress. Well developed, well nourished. HEENT: Pupils are round and equally reacting to light. EOMI. No scleral icterus. No conjunctival pallor. Normocephalic, atraumatic. No pharyngeal erythema. No thyromegaly. CARDIOVASCULAR: S1 and S2 present. No murmurs, rubs, or gallops. PULMONARY: Chest is clear to auscultation, no wheezing or crackles. ABDOMEN: Soft, nontender, nondistended, normoactive bowel sounds. No palpable organomegaly. MUSCULOSKELETAL: No joint swelling or deformity. EXTREMITIES: No cyanosis, clubbing, or pedal edema. NEUROLOGICAL: Gross neurological examination did not reveal any focal deficits. SKIN: No rashes. Assessment and plan Acute infectious encephalopathy UTI Chronic atrial fibrillation Hypertension Hyperlipidemia Monitor vital signs Monitor CBC Monitor CMP Continue IV fluids Follow-up on blood cultures Follow-up on urine cultures Continue IV Rocephin ID following Cardiology consulted PT and OT consulted Labs and medication were reviewed.. Continue same treatment. Continue with symptomatic treatment. Resume home medication. Monitor labs and vitals. DVT and GI prophylaxis. Further recommendations as per clinical course of the pat ient Dictation was produced using [employer] dictation software. please excuse any grammatical, word or spelling errors. Objective - Vital Signs Vital signs: Vital Signs Temp 98.1 F 01/31/23 07:00 Pulse 93 01/31/23 07:00 Resp 15 01/31/23 07:00 BP 106/70 01/31/23 07:00 Pulse Ox 96 01/31/23 07:00 FiO2 Intake & Output 01/30/23 01/31/23 01/31/23 18:59 06:59 18:59 Intake Total 118 Balance 118 Intake: Oral 118 Other: # Voids 3 1 # Bowel Movements 1 - Labs CBC & Chem 7: 01/30/23 05:34 01/30/23 05:34 Labs: Abnormal Lab Results - Last 24 Hours (Table) 01/30/23 Range/Units 05:34 Sodium 133 L (135-145) mmol/L Anion Gap 14.10 H (4.00-12.00) mmol/L Creatinine 1.6 H (0.6-1.5) mg/dL Est GFR (CKD-EPI) 44 L (>=60) AST 52 H (14-35) U/L Albumin/Globulin Ratio 1.44 L (1.60-3.17) Ratio Microbiology - Last 24 Hours (Table) 01/29/23 09:31 Blood Culture - Preliminary Blood
[2023-01-31] MEDS: ATORVASTATIN 10 MG TAB PO SCH (20:53)
[2023-02-01] MEDS: SODIUM CHLORIDE 0.9% 1,000 ML IV SCH (03:38)
--- NOTE | 2023-02-01 10:54 | P.GSCN ---
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 The patient is known to me for incomplete bladder emptying leading to mild bilateral hydronephrosis. He was scheduled for a turp in the future but a uti and cardiac issues have delayed that surgery. He was readmitted to the hospital with weakness. He is found to have urine infection. An ultrasound again identified mild bilateral hydronephrosis. He is asymptomatic. That his history is not reliable unfortunately. Cystoscopy was in the room during the interview this morning. Nothing further was offered as far as history. Review of Systems ROS unobtainable: due to mental status Past Medical History Past Medical History: No Reported History History of Any Multi-Drug Resistant Organisms: None Reported Past Surgical History: No Surgical Hx Reported Past Anesthesia/Blood Transfusion Reactions: No Reported Reaction Past Psychological History: No Psychological Hx Reported Smoking Status: Never smoker Past Alcohol Use History: None Reported Past Drug Use History: None Reported Medications and Allergies Home Medications Medication Instructions Recorded Confirmed Type Atorvastatin [Lipitor] 10 mg PO HS 11/13/22 01/28/23 History Cholecalciferol [Vitamin D3 (25 25 mcg PO Q48H 11/13/22 01/28/23 History Mcg = 1000 Iu)] Prostate Plus Health Complex 1 tab PO DAILY 11/13/22 01/28/23 History Supplement Apixaban [Eliquis] 5 mg PO BID 30 Days #60 tab 11/16/22 01/28/23 Rx Cyanocobalamin [Vitamin B-12] 1,000 mcg PO DAILY tab 11/16/22 01/28/23 Rx Metoprolol Tartrate [Lopressor] 25 mg PO BID 30 Days #60 tab 11/16/22 01/28/23 Rx Tamsulosin [Flomax] 0.4 mg PO BID 01/12/23 01/28/23 History Ciprofloxacin HCl [Cipro] 500 mg PO Q12HR #14 tablet 01/28/23 Rx Allergies Allergy/AdvReac Type Severity Reaction Status Date / Time orange juice Allergy Rash/Hives Verified 01/29/23 09:13 tomato Allergy Rash/Hives Verified 01/29/23 09:14 Surgical - Exam Vital Signs Temp Pulse Resp BP Pulse Ox 98.9 F 90 18 157/94 99 01/28/23 14:53 01/28/23 14:53 01/28/23 14:53 01/28/23 14:53 01/28/23 14:53 - General well developed, well nourished, no distress - Eyes normal ocular movement, no icteric - ENT no hearing loss, no congestion - Neck no masses, trachea midline - Respiratory normal respiratory effort, clear to auscultation - Abdomen Abdomen: soft, non tender, no guarding, no rigid, no rebound - Integumentary no rash, no abnormal pigmentation - Neurologic no disoriented, no combative - Psychiatric oriented to time, oriented to person, oriented to place, speech is normal, memory intact Results - Labs 01/30/23 05:34 01/30/23 05:34 Microbiology - Last 24 Hours (Table) 01/29/23 09:31 Blood Culture - Preliminary Blood Assessment and Plan Assessment: Impression: Recurrent urinary tract infection. Incomplete bladder emptying secondary to chronic outlet obstruction, rule out hypotonic neurogenic bladder. I'll bilateral hydronephrosis secondary to incomplete bladder emptying Recommendations: I will obtain a bladder scan again did assess the amount of incomplete bladder emptying. Given his progressive dementia I prefer not to place a catheter at all possible is that he will not tolerate this. Hopefully TURP will relieve his enough of the outlet obstruction to help him empty his bladder and relieve the hydronephrosis, incomplete emptying and recurrent infections. If it does not then intermittent catheterization or indwelling catheter might be necessary however given his dementia I do not think he would tolerate either. This is been discussed at length with the patient's .
[2023-02-01] MEDS: CYANOCOBALAMIN 500 MCG TAB PO SCH (11:08)
[2023-02-01] MEDS: APIXABAN 5 MG TAB PO SCH ×2 (11:09→21:08)
[2023-02-01] MEDS: CHOLECALCIFEROL 25 MCG (1000 IU) TABLET PO SCH (11:09)
[2023-02-01] MEDS: METOPROLOL TARTRATE 25 MG TAB PO SCH ×2 (11:09→21:08)
[2023-02-01] MEDS: FAMOTIDINE 20 MG TAB PO SCH (11:09)
[2023-02-01] MEDS: TAMSULOSIN 0.4 MG CAP.ER.24H PO SCH ×2 (11:09→21:08)
[2023-02-01 13:24] LABS: HCT 43.1 % (39.6-50.0); HGB 14.4 d/dL (13.0-17.0); MCH 32.5 pg (27.0-32.0); MCHC 33.4 d/dL (32.0-37.0); MCV 97.3 FL (80.0-97.0); Mean Platelet Volume 12.6 FL (9.5-12.2); NRBC Per 100 WBC 0 X 10*3/uL (0.00-0.01); Platelet Count 143 X 10*3/uL (140-440); RBC 4.43 X 10*6/uL (4.40-5.60); RDW 11.6 % (11.5-14.5); WBC 5.91 X 10*3/uL (4.50-10.00)
[2023-02-01 13:27] LABS: ALT 35 U/L (10-49); AST 53 U/L (14-35); Albumin 3.8 d/dL (3.8-4.9); Albumin/Globulin Ratio 1.58 Ratio (1.60-3.17); Alkaline Phosphatase 55 U/L (41-126); BUN/Creat Ratio 16.35 Ratio (12.00-20.00); Blood Urea Nitrogen 27.8 mg/dL (9.0-27.0); Chloride 98 mmol/L (96-109); Globulin 2.4 d/dL (1.6-3.3); Glucose 90 mg/dL (70-110); Potassium 4.5 mmol/L (3.5-5.5); Sodium 136 mmol/L (135-145); Total Bilirubin 0.4 mg/dL (0.3-1.2); Total Protein 6.2 d/dL (6.2-8.2)
--- NOTE | 2023-02-01 13:38 | P.PN ---
Subjective Progress Note Date: 02/01/23 patient is a 77-year-old gentleman with past medical history significant for atrial fibrillation, hypertension, hyperlipidemia who was brought to the ER for increasing confusion and fatigue. Patient had been recently seen in the hospital for similar complaints and has been evaluated by neurology. Patient last admission was beginning of this month at which time he was diagnosed with UTI was discharged on Ceftin. Family has noted the patient is more fatigued and confused. No complain of fever or chills at home. No complain of Chest pain or shortness of breath. Denies any nausea or vomiting. Denies any abdominal pain. There is no complain of recent fall. Because of increasing fatigue and confusion, patient was brought to the ER Initial lab work done in the ER showed WBC 6.9, hemoglobin 14.2, platelet count 224, sodium 133, potassium 4.6, BUN 24, creatinine 1.43, AST 30, ALT 24 UA done showed large amount of leukocyte esterase, wbc 130, Chest x-ray done in the ER showed no acute cardiopulmonary process Patient admitted to medicine service 01/30. Patient seen and examined. Patient is alert, answers questions appropriately. Patient is a fall risk, sitter in place 01/31. Patient seen and examined. at the bedside, still thinks patient is weak. Denies any chest pain or shortness of breath 02/01. Patient seen and examined. Cardiology evaluated the patient, planning stress test on Thursday REVIEW OF SYSTEMS: CONSTITUTIONAL: No fever, no malaise,. CARDIOVASCULAR: No chest pain, no palpitations, no syncope. PULMONARY: No shortness of breath, no cough, GASTROINTESTINAL: No diarrhea, no nausea, no vomiting, no abdominal pain. NEUROLOGICAL: No headaches, no weakness, PHYSICAL EXAMINATION: GENERAL: The patient is alert and oriented x3, not in any acute distress. Well developed, well nourished. HEENT: Pupils are round and equally reacting to light. EOMI. No scleral icterus. No conjunctival pallor. Normocephalic, atraumatic. No pharyngeal erythema. No thyromegaly. CARDIOVASCULAR: S1 and S2 present. No murmurs, rubs, or gallops. PULMONARY: Chest is clear to auscultation, no wheezing or crackles. ABDOMEN: Soft, nontender, nondistended, normoactive bowel sounds. No palpable organomegaly. MUSCULOSKELETAL: No joint swelling or deformity. EXTREMITIES: No cyanosis, clubbing, or pedal edema. NEUROLOGICAL: Gross neurological examination did not reveal any focal deficits. SKIN: No rashes. Assessment and plan Acute infectious encephalopathy UTI Chronic atrial fibrillation Hypertension Hyperlipidemia Monitor vital signs Monitor CBC Monitor CMP DC fluids Follow-up on blood cultures Follow-up on urine cultures Continue IV Rocephin ID following Cardiology evaluated the patient, planning stress test on Thursday PT and OT consulted Labs and medication were reviewed.. Continue same treatment. Continue with symptomatic treatment. Resume home medication. Monitor labs and vitals. DVT and GI prophylaxis. Further recommendations as per clinical course of the patient Dictation was produced using [employer] dictation software. please excuse any grammatical, word or spelling errors. Objective - Vital Signs Vital signs: Vital Signs Temp 98.3 F 02/01/23 07:00 Pulse 74 02/01/23 07:00 Resp 16 02/01/23 07:00 BP 99/69 02/01/23 07:00 Pulse Ox 98 02/01/23 07:00 FiO2 Intake & Output 01/31/23 02/01/23 02/01/23 18:59 06:59 18:59 Output Total 100 Balance -100 Output: Urine 100 Other: # Voids 3 2 - Labs CBC & Chem 7: 01/30/23 05:34 01/30/23 05:34 Labs: Microbiology - Last 24 Hours (Table) 01/29/23 09:31 Blood Culture - Preliminary Blood
--- NOTE | 2023-02-01 15:14 | P.PN ---
Subjective Progress Note Date: 02/01/23 Progress note: Patient is doing well from cardiac vessel standpoint. He denies having any active chest pain chest pressure shortness of breath. He is hemodynamics stable HISTORY OF PRESENTING ILLNESS 77-year-old with Known to Dr Guillermo. PMH of HTN, dyslipidemia, and atrial fib rillation on rate control strategy with Eliquis and metoprolol. This was diagnosed in November 2022. During that admission there was also concern of possible TIA but his MRI was negative and the neurologist did not think it was a cerebrovascular accident. This time he presented to the hospital with concerns of urinary tract infection. She's been evaluated for possible prostate procedure and was being scheduled for an outpatient stress test as a part of his perioperative cardiac risk assessment. At this time, patient is hemodynamically stable with normotensive, rate controlled atrial fibrillation with no active signs of bleeding. He's ECG does not show any active signs of ischemia. He does not have clinical signs and symptoms of congestive heart failure. Echo from 12/03 normal LVEF no m ajor valve pathology REVIEW OF SYSTEMS 14 point review of system is negative except what is mentioned above in HPI. PHYSICAL EXAMINATION Vital signs reviewed. Head: Normocephalic. Eyes: Sclerae nonicteric. Neck: Brisk carotid upstroke, no jugular venous distention. Lungs: Clear to auscultation. Heart: Regular rate and rhythm, S1-S2, no S3, no murmur or rub. Abdomen: Soft nontender, positive bowel sounds no organomegaly. Extremities: No edema, intact distal pulses. Neuro: Alert, oritented, no focal deficits ASSESSMENT Acute UTI Concerns of BPH awaiting urological procedure next line Persistent atrial fibrillation, [id number] score 4 Essential hypertension Perioperative cardiac risk assessment PLAN At this time patient is stable from cardiac vessel standpoint. Because he was scheduled for an outpatient nuclear stress test but now he is in the hospital, we will obtain a nuclear Lexiscan stress test while he is in the hospital. Atrial fibrillation is stable. Continue metoprolol and Eliquis. Hold Eliquis 24 hours prior to the urological procedure Other comorbidities management as per the primary team Objective - Vital Signs Vital signs: Vital Signs Temp 98.3 F 02/01/23 07:00 Pulse 74 02/01/23 07:00 Resp 16 02/01/23 07:00 BP 99/69 02/01/23 07:00 Pulse Ox 98 02/01/23 07:00 FiO2 Intake & Output 01/31/23 02/01/23 02/01/23 18:59 06:59 18:59 Output Total 100 250 Balance -100 -250 Output: Urine 100 250 Other: # Voids 3 2 - Labs CBC & Chem 7: 02/01/23 05:17 02/01/23 05:17 Labs: Abnormal Lab Results - Last 24 Hours (Table) 02/01/23 02/01/23 Range/Units 05:17 05:17 MCV 97.3 H (80.0-97.0) FL MCH 32.5 H (27.0-32.0) pg MPV 12.6 H (9.5-12.2) FL BUN 27.8 H (9.0-27.0) mg/dL Creatinine 1.7 H (0.6-1.5) mg/dL Est GFR (CKD-EPI) 41 L (>=60) AST 53 H (14-35) U/L Albumin/Globulin Ratio 1.58 L (1.60-3.17) Ratio Microbiology - Last 24 Hours (Table) 01/29/23 09:31 Blood Culture - Preliminary Blood
--- NOTE | 2023-02-01 15:34 | P.PN ---
Subjective Progress Note Date: 02/01/23 Principal diagnosis: Urinary tract infection Patient is a 77-year-old male with a past medical history significant for atrial fibrillation hypertension hyperlipidemia patient was brought into the ER for evaluation of weakness and mental status changes, patient did have a positive UA concerning for symptomatic enteric infection. On today's evaluation that is 02/01/2023, the patient remains to be afebrile, the patient is breathing comfortably on room air without the need for supplemental oxygen , the patient denies chest pain or cough, patient denies nausea/vomiting or diarrhea and denies any abdominal pain Patient did have white count of 5.91, creatinine is 1.7, cultures so far negative, ultrasound did show evidence of bilateral hydronephrosis the right greater than the left Objective - Vital Signs Vital signs: Vital Signs Temp 98.3 F 02/01/23 07:00 Pulse 74 02/01/23 07:00 Resp 16 02/01/23 07:00 BP 99/69 02/01/23 07:00 Pulse Ox 98 02/01/23 07:00 FiO2 Intake & Output 01/31/23 02/01/23 02/01/23 18:59 06:59 18:59 Intake Total 240 Output Total 100 250 Balance -100 -10 Intake: Oral 240 Output: Urine 100 250 Other: # Voids 3 2 - Exam GENERAL DESCRIPTION: An elderly male lying in bed in no distress RESPIRATORY SYSTEM: Unlabored breathing , decreased breath sounds at bases HEART: S1 S2 regular rate and rhythm , ABDOMEN: Soft , no tenderness EXTREMITIES: No edema feet - Labs CBC & Chem 7: 02/01/23 05:17 02/01/23 05:17 Labs: Abnormal Lab Results - Last 24 Hours (Table) 02/01/23 02/01/23 Range/Units 05:17 05:17 MCV 97.3 H (80.0-97.0) FL MCH 32.5 H (27.0-32.0) pg MPV 12.6 H (9.5-12.2) FL BUN 27.8 H (9.0-27.0) mg/dL Creatinine 1.7 H (0.6-1.5) mg/dL Est GFR (CKD-EPI) 41 L (>=60) AST 53 H (14-35) U/L Albumin/Globulin Ratio 1.58 L (1.60-3.17) Ratio Microbiology - Last 24 Hours (Table) 01/29/23 09:31 Blood Culture - Preliminary Blood Assessment and Plan (1) UTI (urinary tract infection) Current Visit: Yes Status: Acute Code(s): N39.0 - URINARY TRACT INFECTION, SITE NOT SPECIFIED SNOMED Code(s): 87193859 Plan: 1patient presenting to the hospital with mental status changes weakness in this patient with a low-grade fever patient did have a positive UA and no other clinical focus for infection patient chest was clear to auscultation abdomen is soft with no tenderness no evidence of any joint or lower extremity swelling or redness 2Patient did have abnormal ultrasound with evidence of bilateral hydronephrosis patient has been evaluated by urology and likely concern for bladder outlet obstruction 3- patient to continue with Rocephin 2 g daily and consider short course of oral Ceftin on discharge Dictation was produced using [employer] dictation software. please excuse any grammatical, word or spelling errors. Time with Patient: Less than 30
[2023-02-01] MEDS: ATORVASTATIN 10 MG TAB PO SCH (21:08)
--- NOTE | 2023-02-02 07:41 | P.PN ---
Subjective Progress Note Date: 02/02/23 The patient is in the hospital urinary tract infection. He has Alzheimer's. He has incomplete bladder emptying. He is to have a TURP in the near future. The question is whether he has a hypotonic neurogenic bladder. Not be a great candidate for catheter or intermittent catheterization. Surgery will be done once the infection is under control and cardiac status is cleared. He should remain on antibiotics until I do the surgery. His latest residual was improved to 294. Objective - Vital Signs Vital signs: Vital Signs Temp 99.2 F 02/02/23 00:40 Pulse 86 02/02/23 00:40 Resp 20 02/02/23 00:40 BP 88/58 02/02/23 00:40 Pulse Ox 96 02/02/23 00:40 FiO2 Intake & Output 02/01/23 02/02/23 02/02/23 18:59 06:59 18:59 Intake Total 740 Output Total 350 294 Balance 390 -294 Intake: Oral 740 Output: Urine 350 Post Void Residual 294 Other: # Voids 3 - Labs CBC & Chem 7: 02/01/23 05:17 02/01/23 05:17 Labs: Abnormal Lab Results - Last 24 Hours (Table) 02/01/23 02/01/23 Range/Units 05:17 05:17 MCV 97.3 H (80.0-97.0) FL MCH 32.5 H (27.0-32.0) pg MPV 12.6 H (9.5-12.2) FL BUN 27.8 H (9.0-27.0) mg/dL Creatinine 1.7 H (0.6-1.5) mg/dL Est GFR (CKD-EPI) 41 L (>=60) AST 53 H (14-35) U/L Albumin/Globulin Ratio 1.58 L (1.60-3.17) Ratio Microbiology - Last 24 Hours (Table) 01/29/23 09:31 Blood Culture - Preliminary Blood
[2023-02-02] MEDS: TAMSULOSIN 0.4 MG CAP.ER.24H PO SCH ×2 (08:39→20:31)
[2023-02-02] MEDS: FAMOTIDINE 20 MG TAB PO SCH (08:39)
[2023-02-02] MEDS: CYANOCOBALAMIN 500 MCG TAB PO SCH (08:39)
[2023-02-02] MEDS ORDERED: AMINOPHYLLINE 500 MG/20 ML VIAL IV PRN (08:40)
[2023-02-02] MEDS ORDERED: CAFFEINE CITRATE 60 MG/3 ML VIAL IV PRN (08:40)
[2023-02-02] MEDS ORDERED: REGADENOSON 0.4 MG/5 ML SYRINGE IV PRN (08:40)
--- NOTE | 2023-02-02 12:12 | P.PN ---
Subjective HISTORY OF PRESENT ILLNESS: 77-year-old with Known to Dr Guillermo. PMH of HTN, dyslipidemia, and atrial fibrillation on rate control strategy with Eliquis and metoprolol. This was diagnosed in November 2022. During that admission there was also concern of possible TIA but his MRI was negative and the neurologist did not think it was a cerebrovascular accident. This time he presented to the hospital with concerns of urinary tract infection. She's been evaluated for possible prostate procedure and was being scheduled f or an outpatient stress test as a part of his perioperative cardiac risk assessment. At this time, patient is hemodynamically stable with normotensive, rate controlled atrial fibrillation with no active signs of bleeding. He's ECG does not show any active signs of ischemia. He does not have clinical signs and symptoms of congestive heart failure. Echo from 12/03 normal LVEF no major valve pathology 02/01/2023 Progress note: Patient is doing well from cardiac vessel standpoint. He denies having any active chest pain chest pressure shortness of breath. He is hemodynamics stable 02/02/2023 Patient examined this morning at the bedside. Patient denies any chest pain or pressure. He denies any shortness of breath. Vital signs are stable. Telemetry reveals atrial fibrillation with controlled ventricular rate. PHYSICAL EXAM: VITAL SIGNS: Reviewed. GENERAL: Well-developed in no acute distress. NECK: Supple. No JVD or thyromegaly LUNGS: Respirations even and unlabored. Lungs essentially clear to auscultation bilaterally. HEART: Irregular rate and rhythm. S1 and S2 heard. EXTREMITIES: Normal range of motion. No clubbing or cyanosis. Peripheral pulses intact. No lower extremity edema ASSESSMENT: Acute urinary tract infection Possible hypotonic neurogenic bladder Persistent atrial fibrillation Hypertension Perioperative cardiac risk assessment PLAN: Continue current cardiac medications Urology following with plans to do a TURP in near future pending our clearance Patient to undergo Lexiscan stress test today Further recommendations pending patient's course Nurse practitioner note has been reviewed by physician. Signing provider agrees with the documented findings, assessment, and plan of care. Objective - Vital Signs Vital signs: Vital Signs Temp 97.8 F 02/02/23 07:15 Pulse 98 02/02/23 07:15 Resp 18 02/02/23 07:15 BP 92/67 02/02/23 07:15 Pulse Ox 96 02/02/23 07:15 FiO2 Intake & Output 02/01/23 02/02/23 02/02/23 18:59 06:59 18:59 Intake Total 740 Output Total 350 294 Balance 390 -294 Intake: Oral 740 Output: Urine 350 Post Void Residual 294 Other: # Voids 3 - Labs CBC & Chem 7: 02/01/23 05:17 02/01/23 05:17 Labs: Abnormal Lab Results - Last 24 Hours (Table) 02/01/23 02/01/23 Range/Units 05:17 05:17 MCV 97.3 H (80.0-97.0) FL MCH 32.5 H (27.0-32.0) pg MPV 12.6 H (9.5-12.2) FL BUN 27.8 H (9.0-27.0) mg/dL Creatinine 1.7 H (0.6-1.5) mg/dL Est GFR (CKD-EPI) 41 L (>=60) AST 53 H (14-35) U/L Albumin/Globulin Ratio 1.58 L (1.60-3.17) Ratio Microbiology - Last 24 Hours (Table) 01/29/23 09:31 Blood Culture - Preliminary Blood
--- NOTE | 2023-02-02 14:42 | CA ---
Exercise Stress Test Report Name: Geraldo Uriarte Exam Date: 02/02/2023 11:26 Exam Location: [facility] Ht (in): 68 Wt (lb): 153 BSA: 1.82 Ordering Phys: Sherie Salgado Referring Phys: Mike,, Technologist: Jp Sheridan Age: 77 Gender: M : 1945 Procedure CPT: Indications: Reflex order-Stress test ICD-10 Codes: Patient History: FAMILY HX Medications: SEE MED LIST Meds past 24 hrs: Pretest Chest Pain: STRESS TEST Persantine Protocol Exercise Duration (min:sec): 02:[address] Depressions (mm): Angina Score: Rosas Score: Resting HR (bpm): 98 Peak HR (bpm): 116 Resting BP (mmHg): 124 / 90 Peak BP (mmHg): 123 / 82 MPHR: 142 Target HR: 121 % MPHR: 82 METS: 1.0 Total Dose: Peak Dose: Atropine: Double Product: 02827 BP Response: Stress Termination: END OF DOSAGE Stress Symptoms: Nausea Stress Summary: ECG ANALYSIS Resting ECG: Atrial fibrillation, no significant ST-T wave changes, heart rate 101 bpm Stress ECG: No significant ST-T wave changes diagnostic for ischemia by ST segment analysis CONCLUSIONS Nonischemic ECG response to Lexiscan infusion Please refer to the nuclear portion of the stress test for the complaint pressure of the study Dr Chace Mckeon (Electronically Signed) Final Date: 02 February 2023 14:41
--- NOTE | 2023-02-02 15:44 | NM ---
EXAMINATION TYPE: NM stress lexiscan cardiolite DATE OF EXAM: 02/02/2023 COMPARISON: NONE CLINICAL INDICATION: Male, 77 years old with history of preop clearance; TECHNIQUE: After the intravenous administration of 10 mCi Tc 99m Sestamibi - Cardiolite resting SPEC T images acquired 83 minutes post injection. The patient received 0.4mg Lexiscan, 26.3 mCi Tc 99m Sestamibi - Stress images obtained [address] injection FINDINGS: Review of stress and rest SPECT images demonstrates small area of decreased perfusion involving the l ateral wall on stress images. Stress-induced ischemia is not excluded. Gated analysis shows normal wa ll motion with an estimated left ventricular ejection fraction of 50 %. IMPRESSION: Small area of stress-induced ischemia is not excluded involving the lateral wall.
[2023-02-02] MEDS: APIXABAN 5 MG TAB PO SCH ×2 (16:55→20:31)
[2023-02-02] MEDS: METOPROLOL TARTRATE 25 MG TAB PO SCH ×2 (16:55→20:31)
[2023-02-02] MEDS: ATORVASTATIN 10 MG TAB PO SCH (20:31)
--- NOTE | 2023-02-02 22:38 | PN ---
PROGRESS NOTE DATE OF SERVICE: 02/02/2023 SUBJECTIVE: This is a 77-year-old gentleman, who was being worked up for TURP. He had a UTI also. Cardiac stress test is pending at this time. No chest pain. No palpitation. No fever. PHYSICAL EXAMINATION: VITAL SIGNS: Pulse 98, blood pressure 92/77, respirations 18. CHEST: Clear to auscultation. CARDIOVASCULAR: S1 and S2. ABDOMEN: Soft. NERVOUS SYSTEM: Nonfocal. LABORATORY DATA: Noted. ASSESSMENT: 1. Acute urinary tract infection with infectious encephalopathy. 2. Chronic atrial fibrillation. 3. Possible bladder outlet obstruction, for transurethral resection of the prostate. 4. Stress test. 5. Hypertension. 6. Dementia. 7. Multiple medical issues. RECOMMENDATIONS: Recommend to continue current medications. Continue symptomatic treatment. Await stress test report. Continue the antibiotics. Await clearance of infection. Closely follow with Infectious Disease and Urology. Prognosis is guarded. Further recommendations to follow. MMODL / IJN: [id number] /
[2023-02-03] MEDS: APIXABAN 5 MG TAB PO SCH ×2 (08:47→20:32)
[2023-02-03] MEDS: FAMOTIDINE 20 MG TAB PO SCH (08:47)
[2023-02-03] MEDS: CYANOCOBALAMIN 500 MCG TAB PO SCH (08:47)
[2023-02-03] MEDS: CHOLECALCIFEROL 25 MCG (1000 IU) TABLET PO SCH (08:47)
[2023-02-03] MEDS: METOPROLOL TARTRATE 25 MG TAB PO SCH ×2 (08:47→20:32)
[2023-02-03] MEDS: TAMSULOSIN 0.4 MG CAP.ER.24H PO SCH ×2 (08:47→20:32)
--- NOTE | 2023-02-03 11:58 | P.PN ---
Subjective HISTORY OF PRESENT ILLNESS: 77-year-old with Known to Dr Guillermo. PMH of HTN, dyslipidemia, and atrial fibrillation on rate control strategy with Eliquis and metoprolol. This was diagnosed in November 2022. During that admission there was also concern of possible TIA but his MRI was negative and the neurologist did not think it was a cerebrovascular accident. This time he presented to the hospital with concerns of urinary tract infection. She's been evaluated for possible prostate procedure and was being scheduled f or an outpatient stress test as a part of his perioperative cardiac risk assessment. At this time, patient is hemodynamically stable with normotensive, rate controlled atrial fibrillation with no active signs of bleeding. He's ECG does not show any active signs of ischemia. He does not have clinical signs and symptoms of congestive heart failure. Echo from 12/03 normal LVEF no major valve pathology 02/01/2023 Progress note: Patient is doing well from cardiac vessel standpoint. He denies having any active chest pain chest pressure shortness of breath. He is hemodynamics stable 02/02/2023 Patient examined this morning at the bedside. Patient denies any chest pain or pressure. He denies any shortness of breath. Vital signs are stable. Telemetry reveals atrial fibrillation with controlled ventricular rate. 02/03/2023 Patient examined this morning at the bedside. Patient denies chest pain or pressure. He denies shortness of breath. Lexiscan stress test completed revealing small area of stress-induced ischemia involving the lateral wall. Images reviewed by Dr. Mckeon and not felt to reflect any stress-induced ischemia. Patient's vital signs are stable. PHYSICAL EXAM: VITAL SIGNS: Reviewed. GENERAL: Well-developed in no acute distress. NECK: Supple. No JVD or thyromegaly LUNGS: Respirations even and unlabored. Lungs essentially clear to auscultation bilaterally. HEART: Irregular rate and rhythm. S1 and S2 heard. EXTREMITIES: Normal range of motion. No clubbing or cyanosis. Peripheral pulses intact. No lower extremity edema ASSESSMENT: Acute urinary tract infection Possible hypotonic neurogenic bladder Persistent atrial fibrillation Hypertension Perioperative cardiac risk assessment PLAN: Continue current cardiac medications Urology following with plans to do a TURP in near future There are no absolute contraindications for patient to proceed with urological procedure from a cardiac standpoint We will sign off. Please reconsult if needed. Nurse practitioner note has been reviewed by physician. Signing provider agrees with the documented findings, assessment, and plan of care. Objective - Vital Signs Vital signs: Vital Signs Temp 97.9 F 02/03/23 07:37 Pulse 64 02/03/23 07:37 Resp 16 02/03/23 08:00 BP 114/77 02/03/23 07:37 Pulse Ox 95 02/03/23 07:37 FiO2 Intake & Output 02/02/23 02/03/23 02/03/23 18:59 06:59 18:59 Intake Total 618 Output Total 100 140 Balance 518 -140 Intake: Oral 618 Output: Urine 100 140 Other: # Voids 4 3 # Bowel Movements 1 - Labs CBC & Chem 7: 02/01/23 05:17 02/01/23 05:17
--- NOTE | 2023-02-03 14:51 | P.PN ---
Subjective Progress Note Date: 02/02/23 Principal diagnosis: Urinary tract infection Patient is a 77-year-old male with a past medical history significant for atrial fibrillation hypertension hyperlipidemia patient was brought into the ER for evaluation of weakness and mental status changes, patient did have a positive UA concerning for symptomatic enteric infection. On today's evaluation that is 02/02/2023, the patient continues to be afebrile, the patient is breathing comfortably on room air and denies any chest pain or cough, patient denies abdominal pain, and denies any nausea/vomiting or diarrhea Patient did have white count of 5.91, creatinine is 1.7 as of 02/01/2023, cultures so far negative, ultrasound did show evidence of bilateral hydronephrosis the right greater than the left Objective - Vital Signs Vital signs: Vital Signs Temp 97.8 F 02/02/23 07:15 Pulse 98 02/02/23 07:15 Resp 18 02/02/23 07:15 BP 92/67 02/02/23 07:15 Pulse Ox 96 02/02/23 07:15 FiO2 Intake & Output 02/01/23 02/02/23 02/02/23 18:59 06:59 18:59 Intake Total 740 500 Output Total 350 294 100 Balance 390 -294 400 Intake: Oral 740 500 Output: Urine 350 100 Post Void Residual 294 Other: # Voids 3 3 # Bowel Movements 1 - Exam GENERAL DESCRIPTION: An elderly male lying in bed in no distress RESPIRATORY SYSTEM: Unlabored breathing , decreased breath sounds at bases HEART: S1 S2 regular rate and rhythm , ABDOMEN: Soft , no tenderness EXTREMITIES: No edema feet - Labs CBC & Chem 7: 02/01/23 05:17 02/01/23 05:17 Labs: Abnormal Lab Results - Last 24 Hours (Table) 02/01/23 02/01/23 Range/Units 05:17 05:17 MCV 97.3 H (80.0-97.0) FL MCH 32.5 H (27.0-32.0) pg MPV 12.6 H (9.5-12.2) FL BUN 27.8 H (9.0-27.0) mg/dL Creatinine 1.7 H (0.6-1.5) mg/dL Est GFR (CKD-EPI) 41 L (>=60) AST 53 H (14-35) U/L Albumin/Globulin Ratio 1.58 L (1.60-3.17) Ratio Microbiology - Last 24 Hours (Table) 01/29/23 09:31 Blood Culture - Preliminary Blood Assessment and Plan (1) UTI (urinary tract infection) Current Visit: Yes Status: Acute Code(s): N39.0 - URINARY TRACT INFECTION, SITE NOT SPECIFIED SNOMED Code(s): 47217697 Plan: 1patient presenting to the hospital with mental status changes weakness in this patient with a low-grade fever patient did have a positive UA and no other clinical focus for infection patient chest was clear to auscultation abdomen is soft with no tenderness no evidence of any joint or lower extremity swelling or redness 2Patient did have abnormal ultrasound with evidence of bilateral hydronephrosis patient has been evaluated by urology and likely concern for bladder outlet obst ruction 3- patient seemed to showing clinical improvement and will continue with Rocephin 2 g daily Dictation was produced using [employer] dictation software. please excuse any grammatical, word or spelling errors. Time with Patient: Less than 30
--- NOTE | 2023-02-03 14:52 | P.PN ---
Subjective Progress Note Date: 02/03/23 Principal diagnosis: Urinary tract infection Patient is a 77-year-old male with a past medical history significant for atrial fibrillation hypertension hyperlipidemia patient was brought into the ER for evaluation of weakness and mental status changes, patient did have a positive UA concerning for symptomatic enteric infection. On today's evaluation that is 02/03/2023, the patient remains to be afebrile, the patient is breathing comfortably on room air without the need for supplemental oxygen and denies any shortness of breath, the patient denies having any chest pain or cough, patient denies nausea/vomiting /diarrhea and no abdominal pain, Patient did have white count of 5.91, creatinine is 1.7 as of 02/01/2023 no lab draw today, cultures so far negative, ultrasound did show evidence of bilateral hydronephrosis the right greater than the left Objective - Vital Signs Vital signs: Vital Signs Temp 97.9 F 02/03/23 07:37 Pulse 64 02/03/23 07:37 Resp 16 02/03/23 08:00 BP 114/77 02/03/23 07:37 Pulse Ox 95 02/03/23 07:37 FiO2 Intake & Output 02/02/23 02/03/23 02/03/23 18:59 06:59 18:59 Intake Total 618 Output Total 100 140 Balance 518 -140 Intake: Oral 618 Output: Urine 100 140 Other: # Voids 4 3 # Bowel Movements 1 - Exam GENERAL DESCRIPTION: An elderly male lying in bed in no distress RESPIRATORY SYSTEM: Unlabored breathing , decreased breath sounds at bases HEART: S1 S2 regular rate and rhythm , ABDOMEN: Soft , no tenderness EXTREMITIES: No edema feet - Labs CBC & Chem 7: 02/01/23 05:17 02/01/23 05:17 Assessment and Plan (1) UTI (urinary tract infection) Current Visit: Yes Status: Acute Code(s): N39.0 - URINARY TRACT INFECTION, SITE NOT SPECIFIED SNOMED Code(s): 09057689 Plan: 1patient presenting to the hospital with mental status changes weakness in this patient with a low-grade fever patient did have a positive UA and no other clinical focus for infection patient chest was clear to auscultation abdomen is soft with no tenderness no evidence of any joint or lower extremity swelling or redness 2Patient did have abnormal ultrasound with evidence of bilateral hydronephrosis patient has been evaluated by urology and likely concern for bladder outlet obstruction 3- patient has shown clinical improvement and will continue with Rocephin 2 g daily while inpatient and a short course of Ceftin on discharge Dictation was produced using [employer] dictation software. please excuse any grammatical, word or spelling errors. Time with Patient: Less than 30
[2023-02-03 17:17] LABS: BUN/Creat Ratio 14.33 Ratio (12.00-20.00); Blood Urea Nitrogen 21.5 mg/dL (9.0-27.0); Calcium 9.2 mg/dL (8.7-10.3); Carbon Dioxide 26.8 mmol/L (21.6-31.8); Chloride 99 mmol/L (96-109); Glucose 93 mg/dL (70-110); Potassium 4.6 mmol/L (3.5-5.5); Sodium 139 mmol/L (135-145)
[2023-02-03 17:38] LABS: Basophils # (A) 0.03 X 10*3/uL (0.00-0.10); Basophils % (A) 0.6 %; Eosinophils # (A) 0.18 X 10*3/uL (0.04-0.35); Eosinophils % (A) 3.5 %; HCT 43.5 % (39.6-50.0); HGB 14.4 d/dL (13.0-17.0); Lymphocytes % (A) 19.2 %; MCH 32.3 pg (27.0-32.0); MCHC 33.1 d/dL (32.0-37.0); MCV 97.5 FL (80.0-97.0); Mean Platelet Volume 12.4 FL (9.5-12.2); Monocytes # (A) 0.71 X 10*3/uL (0.20-1.00); Monocytes % (A) 13.6 %; NRBC Per 100 WBC 0 X 10*3/uL (0.00-0.01); Neutrophils # (A) 3.26 X 10*3/uL (1.80-7.70); Neutrophils % (A) 62.5 %; Platelet Count 135 X 10*3/uL (140-440); RBC 4.46 X 10*6/uL (4.40-5.60); RDW 11.5 % (11.5-14.5); WBC 5.21 X 10*3/uL (4.50-10.00)
[2023-02-03] MEDS: ATORVASTATIN 10 MG TAB PO SCH (20:32)
--- NOTE | 2023-02-03 23:26 | PN ---
PROGRESS NOTE DATE OF SERVICE: 02/03/2023 SUBJECTIVE: This is a 77-year-old gentleman, who was admitted with acute urinary tract infection with possible bladder outlet obstruction. Had a Lexiscan test yesterday, showed small area of stress-induced ischemia, was not excluded. Cardiology has seen the patient and recommended no absolute contraindication and cleared the patient for the urological procedure. We will continue to monitor. The patient is able to ambulate without any problems. OBJECTIVE: VITAL SIGNS: Pulse 64, blood pressure 114/77, respirations 16. CHEST: Clear to auscultation. CARDIOVASCULAR: S1 and S2. ABDOMEN: Soft. NERVOUS SYSTEM: Diffusely weak. LABORATORY DATA: Creatinine is 1.7. ASSESSMENT: 1. Acute urinary tract infection with infectious encephalopathy. 2. Chronic atrial fibrillation. 3. Possible bladder outlet obstruction, for transurethral resection of the prostate. 4. Status post stress test. No absolute contraindication for surgery per cardiology. 5. Hypertension. 6. Dementia. 7. Multiple medical issues. RECOMMENDATIONS: Recommend to continue current medications. Continue symptomatic treatment. Otherwise, at this time, recommend repeat labs. Closely follow with multiple consultants. Further recommendations to follow. MMODL / IJN: [id number] /
[2023-02-04 04:35] VITALS: RESP 16
--- NOTE | 2023-02-04 06:34 | P.PN ---
Subjective Progress Note Date: 02/04/23 The patient is in the hospital with a uti and cardiac issues. The patient has incomplete bladder emptying and needs a turp. He has been cleared from cardiology. He is on asa and eliquis I will not do this during this admission but will work on setting this uo for the near future Objective - Vital Signs Vital signs: Vital Signs Temp 98.0 F 02/04/23 01:46 Pulse 72 02/04/23 01:46 Resp 16 02/04/23 01:46 BP 106/74 02/04/23 01:46 Pulse Ox 97 02/04/23 01:46 FiO2 Intake & Output 02/03/23 02/03/23 02/04/23 06:59 18:59 06:59 Intake Total 118 Output Total 290 600 Balance -172 -600 Intake: Oral 118 Output: Urine 290 600 Other: # Voids 3 2 2 # Bowel Movements 1 - Labs CBC & Chem 7: 02/03/23 08:51 02/03/23 08:51 Labs: Abnormal Lab Results - Last 24 Hours (Table) 02/03/23 02/03/23 Range/Units 08:51 08:51 MCV 97.5 H (80.0-97.0) FL MCH 32.3 H (27.0-32.0) pg Plt Count 135 L (140-440) X 10*3/uL MPV 12.4 H (9.5-12.2) FL Anion Gap 13.20 H (4.00-12.00) mmol/L Est GFR (CKD-EPI) 47 L (>=60) Microbiology - Last 24 Hours (Table) 01/29/23 09:31 Blood Culture - Final Blood
[2023-02-04 08:03] VITALS: BP 117/72; PULSE 57; TEMP 97.9
[2023-02-04] MEDS: FAMOTIDINE 20 MG TAB PO SCH (09:54)
[2023-02-04] MEDS: TAMSULOSIN 0.4 MG CAP.ER.24H PO SCH (09:55)
[2023-02-04] MEDS: APIXABAN 5 MG TAB PO SCH (09:55)
[2023-02-04] MEDS: METOPROLOL TARTRATE 25 MG TAB PO SCH (09:55)
[2023-02-04] MEDS: CYANOCOBALAMIN 500 MCG TAB PO SCH (09:55)
[2023-02-04 10:31] LABS: Basophils # (A) 0.04 X 10*3/uL (0.00-0.10); Basophils % (A) 0.7 %; Eosinophils # (A) 0.19 X 10*3/uL (0.04-0.35); Eosinophils % (A) 3.4 %; HCT 42.9 % (39.6-50.0); HGB 14.8 d/dL (13.0-17.0); Lymphocytes # (A) 1.05 X 10*3/uL (0.90-5.00); MCH 32.8 pg (27.0-32.0); MCHC 34.5 d/dL (32.0-37.0); MCV 95.1 FL (80.0-97.0); Mean Platelet Volume 12.6 FL (9.5-12.2); Monocytes # (A) 0.79 X 10*3/uL (0.20-1.00); Monocytes % (A) 14.3 %; NRBC Per 100 WBC 0 X 10*3/uL (0.00-0.01); Neutrophils # (A) 3.44 X 10*3/uL (1.80-7.70); Neutrophils % (A) 62.2 %; Platelet Count 146 X 10*3/uL (140-440); RBC 4.51 X 10*6/uL (4.40-5.60); RDW 11.4 % (11.5-14.5); WBC 5.53 X 10*3/uL (4.50-10.00)
[2023-02-04 10:57] LABS: BUN/Creat Ratio 16.07 Ratio (12.00-20.00); Blood Urea Nitrogen 22.5 mg/dL (9.0-27.0); Calcium 8.9 mg/dL (8.7-10.3); Carbon Dioxide 25.4 mmol/L (21.6-31.8); Chloride 102 mmol/L (96-109); Glucose 91 mg/dL (70-110); Potassium 4.6 mmol/L (3.5-5.5); Sodium 139 mmol/L (135-145)
--- NOTE | 2023-02-04 13:27 | P.DS ---
Providers Date of admission: 02/02/23 09:48 Expected date of discharge: 02/04/23 Attending physician: Sukhi Mendez Consults: 01/29/23 09:18 Consult Physician Urgent Consulting Provider: Kenneth Cortes Consult Reason/Comments: UTI Do you want consulting provider notified?: Yes 01/31/23 10:41 Consult Physician Urgent Consulting Provider: Samir Gaffney Consult Reason/Comments: bilateral hydronephrosis Do you want consulting provider notified?: Yes Primary care physician: Yeison Ruiz [facility] Course: Final diagnosis Acute urinary tract infection with infectious encephalopathy, present on admission Chronic atrial fibrillation Possible bladder outlet obstruction planning for TURP with urology Status post stress testing with no absolute contraindications for surgery per cardiology Hypertension history History of dementia GI prophylaxis DVT prophylaxis Full code Discharge disposition Patient is being discharged in a stable condition with guarded prognosis to [facility]. Patient will follow-up with Dr. Ruiz in the outpatient setting upon discharge. Patient is to continue with oral Ceftin twice daily until follow-up with urology as scheduled. Patient will be contacted by urology regarding when to hold anticoagulation. Continue to hold aspirin until after urological procedure is performed. Patient also to follow- up with cardiology outpatient. Total time taken is greater than 35 minutes. Hospital course This is a 77-year-old male who was recently admitted with acute urinary tract infection with possible bladder outlet obstruction present on admission. Patient had been evaluated by urology and will require TURP and also cardiac clearance given patient's significant cardiac history. Patient had been mainta ined on oral anticoagulation along with aspirin and was evaluated by cardiology here in patient underwent Lexiscan stress test which showed a small area of stress-induced ischemia not entirely excluded. Cardiology reported no contraindication for urological procedure and risks versus benefits were explained. Patient also to be treated with antibiotics until follow-up with urology in the urological procedure. Patient will need at least one week of all aspirin and anticoagulation be held prior to surgery. Urology to contact patient and/or primary care in regards to when to hold Eliquis and when surgery will be scheduled. Patient evaluated by physical therapy recommending rehab and patient and family are agreeable. Insurance authorization was obtained and patient will be going to [facility] today. Please refer to other consultation notes for further HPI. Currently no reports of chest pain, shortness of breath, or palpitations. Patient is afebrile. No reports of naus ea or vomiting and patient is tolerating diet. Patient will be going to [facility] today. Guarded prognosis Physical exam: Gen: This is a 77-year-old male who is awake, alert and oriented 2, thin built, elderly appearing HEENT: Head is atraumatic, normocephalic. Pupils equal, round. Sclerae is anicteric. NECK: Supple. No JVD. No lymphadenopathy. No thyromegaly. LUNGS:Diminished breath sounds bilaterally with no wheezes or rhonchi. No intercostal retractions. HEART: S1, S2 are muffled ABDOMEN: Soft. Bowel sounds are present. No masses. No tenderness. EXTREMITIES: No pedal edema. No calf tenderness. NEUROLOGICAL: Patient is awake, alert and oriented x2. Cranial nerves 2 through 12 are grossly intact. Diffuse weakness Please refer to medication reconciliation sheet for a list of medications. The impression and plan of care has been dictated by Meseret Perry, Nurse Practitioner as directed. Dr. Andrea MD I have performed a history and examination and MDM of this patient, discussed the same with the dictator, and agree with the dictator's assessment and plan as written ,documented as a scribe. Based on total visit time, I have performed more than 50% of the visit. Patient Condition at Discharge: Good Plan - Discharge Summary New Discharge Prescriptions: New cefUROXime axetiL [Ceftin] 500 mg PO BID 10 Days #20 tab Mag Hydrox/Al Hydrox/Simeth [Maalox] 15 ml PO Q6HR PRN ml PRN Reason: Indigestion Acetaminophen Tab [Tylenol] 650 mg PO Q6HR PRN tab PRN Reason: Mild Pain Or Fever > 100.5 Famotidine [Pepcid] 20 mg PO DAILY tab Continue Cholecalciferol [Vitamin D3 (25 Mcg = 1000 Iu)] 25 mcg PO Q48H Atorvastatin [Lipitor] 10 mg PO HS Prostate Plus Health Complex Supplement 1 tab PO DAILY Metoprolol Tartrate [Lopressor] 25 mg PO BID 30 Days #60 tab Cyanocobalamin [Vitamin B-12] 1,000 mcg PO DAILY tab Tamsulosin [Flomax] 0.4 mg PO BID Apixaban [Eliquis] 5 mg PO BID 30 Days #60 tab Discharge Medication List Atorvastatin [Lipitor] 10 mg PO HS 11/13/22 [History] Cholecalciferol [Vitamin D3 (25 Mcg = 1000 Iu)] 25 mcg PO Q48H 11/13/22 [History] Prostate Plus Health Complex Supplement 1 tab PO DAILY 11/13/22 [History] Apixaban [Eliquis] 5 mg PO BID 30 Days #60 tab 11/16/22 [Rx] Cyanocobalamin [Vitamin B-12] 1,000 mcg PO DAILY tab 11/16/22 [Rx] Metoprolol Tartrate [Lopressor] 25 mg PO BID 30 Days #60 tab 11/16/22 [Rx] Tamsulosin [Flomax] 0.4 mg PO BID 01/12/23 [History] Acetaminophen Tab [Tylenol] 650 mg PO Q6HR PRN tab 02/04/23 [Rx] Famotidine [Pepcid] 20 mg PO DAILY tab 02/04/23 [Rx] Mag Hydrox/Al Hydrox/Simeth [Maalox] 15 ml PO Q6HR PRN ml 02/04/23 [Rx] cefUROXime axetiL [Ceftin] 500 mg PO BID 10 Days #20 tab 02/04/23 [Rx] Follow up Appointment(s)/Referral(s): Yeison Ruiz MD [Primary Care Provider] - 1-2 days [facility], [NON-STAFF] - 1 Week Karel Cevallos MD [STAFF PHYSICIAN] - 1 Week Patient Instructions/Handouts: Urinary Tract Infection in Men (ED) Activity/Diet/Wound Care/Special Instructions: Patient is going to [facility] Activity as tolerated Patient follow-up with urology regarding urological procedure and went to hold on elquis Hold aspirin until after surgery Patient will need follow-up with cardiology outpatient Follow-up primary care provider on discharge Continue antibiotics until following with urology Discharge Disposition: TRANSFER TO SNF/ECF
--- NOTE | 2023-02-09 16:24 | CDI ---
Documentation Clarification Form Date: 02/09/2023 03:51:58 PM From: Nora Gonzalez RN, CCDS Email: [email or web address] Admit Date: 02/02/2023 09:48:00 AM Patient Name: Geraldo Uriarte Visit Number: [id number] Discharge Date: 02/04/2023 03:15:00 PM ATTENTION: The Clinical Documentation Specialists (CDI) and [facility] Coding Staff appreciate your assistance in clarifying documentation. Please respond to the clarification below the line at the bottom and electronically sign. The CDI & [facility] Coding staff will review the response and follow-up if needed. Please note: Queries are made part of the Legal Health Record. If you have any questions, please contact the author of this message via ITS. Dr. Sukhi Mendez Infectious Encephalopathy is documented in the progress notes. Additional clarification regarding the type of infectious encephalopathy is requested. History/Risk Factors: A fib, HTN, HLD and recent diagnosis of UTI. Presented with increasing confusion and fatigue. Admitted with acute UTI and infectious encephalopathy. Clinical Indicators: H&P: "Patient last admission was beginning of this month at which time he was diagnosed with UTI, was discharged on Ceftin. Family has noted the patient is more fatigued and confused. Acute infectious encephalopathy. UTI." Discharge summary: "Acute urinary tract infection with infectious encephalopathy, present on admission." Labs: +UA with large leukocyte esterase, 130 WBC's and cloudy. Treatment: IV Rocephin 2gm Q24H 01/30-02/03; IV Levaquin 750mg daily at 2100 on 01/29 ID Consult: "patient presenting to the hospital with mental status changes, weakness and low-grade fever. Patient did have a positive UA and no other clinical focus for infection." Please clarify the type of infectious encephalopathy, if known: [ ] Metabolic Encephalopathy [ ] Other, please specify [ ] Unable to determine Metabolic Encephalopathy MTDD
--- NOTE | 2023-02-10 14:32 | P.PN ---
Subjective Progress Note Date: 02/04/23 Principal diagnosis: Urinary tract infection Patient is a 77-year-old male with a past medical history significant for atrial fibrillation hypertension hyperlipidemia patient was brought into the ER for evaluation of weakness and mental status changes, patient did have a positive UA concerning for symptomatic enteric infection. On today's evaluation that is 02/04/2023, the patient continues to be afebrile, the patient is breathing comfortably on room air and the patient denies any shortness of breath, the patient denies having any chest pain or cough, patient denies nausea/vomiting /diarrhea and no abdominal pain, Patient did have white count of 5.53, creatinine is 1.4 , cultures so far negative, ultrasound did show evidence of bilateral hydronephrosis the right greater than the left Objective - Vital Signs Vital signs: Vital Signs Temp 97.9 F 02/04/23 07:44 Pulse 57 L 02/04/23 07:44 Resp 16 02/04/23 07:44 BP 117/72 02/04/23 07:44 Pulse Ox 94 L 02/04/23 07:44 FiO2 Intake & Output 02/03/23 02/04/23 02/04/23 18:59 06:59 18:59 Intake Total 118 Output Total 290 600 Balance -172 -600 Intake: Oral 118 Output: Urine 290 600 Other: # Voids 2 2 # Bowel Movements 1 - Exam GENERAL DESCRIPTION: An elderly male lying in bed in no distress RESPIRATORY SYSTEM: Unlabored breathing , decreased breath sounds at bases HEART: S1 S2 regular rate and rhythm , ABDOMEN: Soft , no tenderness EXTREMITIES: No edema feet - Labs CBC & Chem 7: 02/04/23 06:39 02/04/23 06:39 Labs: Abnormal Lab Results - Last 24 Hours (Table) 02/03/23 02/03/23 02/04/23 Range/Units 08:51 08:51 06:39 MCV 97.5 H (80.0-97.0) FL MCH 32.3 H 32.8 H (27.0-32.0) pg RDW 11.4 L (11.5-14.5) % Plt Count 135 L (140-440) X 10*3/uL MPV 12.4 H 12.6 H (9.5-12.2) FL Anion Gap 13.20 H (4.00-12.00) mmol/L Est GFR (CKD-EPI) 47 L (>=60) 02/04/23 Range/Units 06:39 MCV (80.0-97.0) FL MCH (27.0-32.0) pg RDW (11.5-14.5) % Plt Count (140-440) X 10*3/uL MPV (9.5-12.2) FL Anion Gap (4.00-12.00) mmol/L Est GFR (CKD-EPI) 51 L (>=60) Microbiology - Last 24 Hours (Table) 01/29/23 09:31 Blood Culture - Final Blood Assessment and Plan (1) UTI (urinary tract infection) Status: Acute Code(s): N39.0 - URINARY TRACT INFECTION, SITE NOT SPECIFIED SNOMED Code(s): 30124839 Plan: 1patient presenting to the hospital with mental status changes weakness in this patient with a low-grade fever patient did have a positive UA and no other clinical focus for infection patient chest was clear to auscultation abdomen is soft with no tenderness no evidence of any joint or lower extremity swelling or redness 2Patient did have abnormal ultrasound with evidence of bilateral hydronephrosis patient has been evaluated by urology and likely concern for bladder outlet obstruction 3- patient has shown clinical improvement and will finish therapy with short course of Ceftin on discharge Dictation was produced using [employer] dictation software. please excuse any grammatical, word or spelling errors. Time with Patient: Less than 30
== END 2023-02-04 15:15 | DRG 689 ==
LOC: EC 14:45 → 6NMEDSUR 22:22 → OBSVTOIN 02-02 09:48 → 6NMEDSUR 02-03 13:25
PROVIDERS: ADMIT Hospitalist; ATTEND Hospitalist
PROC: 4A02XM4 Measurement of Cardiac Total Activity, External Approach (ICD-10-PCS; principal; 2023-02-02)
DX: N13.6 Pyonephrosis (principal); G93.41 Metabolic encephalopathy; I48.19 Other persistent atrial fibrillation; N32.0 Bladder-neck obstruction; N17.9 Acute kidney failure, unspecified; G30.9 Alzheimer's disease, unspecified; F02.80 Dementia in other diseases classified elsewhere, unspecified severity, without behavioral disturbance, psychotic disturbance, mood disturbance, and anxiety; I10 Essential (primary) hypertension; E78.5 Hyperlipidemia, unspecified; Z79.01 Long term (current) use of anticoagulants; Z79.899 Other long term (current) drug therapy; Z87.440 Personal history of urinary (tract) infections; Z91.81 History of falling; Z79.82 Long term (current) use of aspirin; Z91.018 Allergy to other foods; N31.8 Other neuromuscular dysfunction of bladder
CPT/HCPCS: 36415; 70450; 71046; 76700; 78452; 80048; 80053; 81001; 82140; 82607; 82747; 83605; 83735; 84145; 84443; 85025; 85027; 86140; 87040; 87086; 93005; 93017; 96360; 96361; 99285